=== PATIENT | male | born 1960 | race Caucasian/White ===

== ENCOUNTER 2024-11-01 14:58 | Emergency (ER) | payer OTHER ==
--- OUTSIDE RECORDS SUMMARY | 2024-11-01 15:03 | XMS REPORT | Continuity of Care Document ---
Author Name Unknown Address [address] [place] [address] [facility] thconnect Address [address] [place] [address] Care Team Providers Care Instrumental Musician Name Role Phone Manish Mackey Attending Clinician Unava ilable Junior Attending Clinician Unavail able Manish Mackey Attending Clinician [phone], DOES_NOT Admitting Clinician Unavailable Junior Admitting Clinician Unavail able Manish Mackey Admitting Clinician Unavailable UNDEFINED Admitting Clinician Unavailable Payers Payer Name Policy Type Policy Number Effective Date Expirati on Date Source Problems Condition Name Condition Details Condition Category Status Onset Date Resolution Date Last Treatment Date Treating Clinician Comments Source Tear of right rotator cuff Tear of Right Rotator Cuff Problem Active 6- 00:00: 00 [facility] Full thickness rotator cuff tear Full Thickness Rotator Cuff Tear Problem Active 4-06 00:00: 00 [facility] Complete tear of shoulder joint Complete Tear of Shoulder Joint Problem Active 4-06 00:00: 00 [facility] Fracture of acromial process of scapula Fracture of Acromial Process of Scapula Problem Active 3-30 00:00: 00 [facility] Closed fracture of acromial process of right scapula Closed Fracture of Acromial Process of Right Scapula Problem Active 2021-0 1-27 00:00: 00 [facility] Degenerati ve joint disease of shoulder region Degenerati ve Joint Disease of Shoulder Region Problem Active 12-17 00:00: 00 [facility] Rotator cuff syndrome Rotator Cuff Syndrome Problem Active 06-05 00:00: 00 [facility] Pain of right shoulder joint Pain of Right Shoulder Joint Problem Active 06-05 00:00: 00 [facility] Localized, primary osteoarthr itis Localized, Primary Osteoarthr itis Problem Active 6 00:00: 00 [facility] Allergies, Adverse Reactions, Alerts Allergy Name Allergy Type Status Severity Reaction(s) Onset Date Inactive Date Treating Clinician Comments Source No Known Allergie s DA Active U 07-16 00:00: 00 [facility] No Known Allergie s DA Active U 0 07-16 00:00: 00 [facility] No Known Allergie s DA Active U 1- 00:00: 00 [facility] No Known Allergie s DA Active U 0 114 00:00: 00 [facility] No Known Allergie s DA Active U 1- 00:00: 00 [facility] No Known Allergie s DA Active U 0 1- 00[facility]00: 00 [facility] Social History Smoking Status Start Date Stop Date Source Current Some Day Smoker [facility] Medications Ordered Medication Name Filled Medication Name Start Date Stop Date Current Medication? Ordering Clinician Indication Dosage Frequency Signature (SIG) Comments Components Source Zofran 4 mg tablet 1 TAB PO Q4H PRN NAUSEA Zofran 4 mg tablet 1 TAB PO Q4H PRN NAUSEA 02-17 00:00: 00 No Zofran 4 mg tablet 1 TAB PO Q4H PRN NAUSEA [facility] cyclobenzap rine 10 mg tablet 1 PO Q8H PRN cyclobenzap rine 10 mg tablet 1 PO Q8H PRN 2021-0 3-30 00:00: 00 No cyclobenza eric 10 mg tablet 1 PO Q8H PRN [facility] Zofran 4 mg tablet 1 TAB PO Q4H PRN NAUSEA Zofran 4 mg tablet 1 TAB PO Q4H PRN NAUSEA 2020-0 330 00:00: 00 No Zofran 4 mg tablet 1 TAB PO Q4H PRN NAUSEA [facility] cyclobenzap rine 10 mg tablet 1 PO Q8H PRN cyclobenzap rine 10 mg tablet 1 PO Q8H PRN 1-0 330 00:00: 00 No cyclobenza eric 10 mg tablet 1 PO Q8H PRN [facility] hydrocodone 10 mg-acetamin ophen 325 mg tablet 1 PO Q6H PRN PAIN hydrocodone 10 mg-acetamin ophen 325 mg tablet 1 PO Q6H PRN PAIN 1-0 330 00:00: 00 No hydrocodon e 10 mg-acetami nophen 325 mg tablet 1 PO Q6H PRN PAIN [facility] Zofran 4 mg tablet 1 TAB PO Q4H PRN NAUSEA Zofran 4 mg tablet 1 TAB PO Q4H PRN NAUSEA 2020-0 330 00:00: 00 No Zofran 4 mg tablet 1 TAB PO Q4H PRN NAUSEA [facility] cyclobenzap rine 10 mg tablet 1 PO Q8H PRN cyclobenzap rine 10 mg tablet 1 PO Q8H PRN 2020-0 330 00:00: 00 No cyclobenza eric 10 mg tablet 1 PO Q8H PRN [facility] metformin ER 500 mg tablet,exte nded release 24 hr TAKE 1 TABLET BY MOUTH EVERY MORNING WITH A MEAL AND TAKE 2 TABLETS BY MOUTH EVERY EVENING WITH A MEAL metformin ER 500 mg tablet,exte nded release 24 hr TAKE 1 TABLET BY MOUTH EVERY MORNING WITH A MEAL AND TAKE 2 TABLETS BY MOUTH EVERY EVENING WITH A MEAL No metformin ER 500 mg tablet,ext ended release 24 hr TAKE 1 TABLET BY MOUTH EVERY MORNING WITH A MEAL AND TAKE 2 TABLETS BY MOUTH EVERY EVENING WITH A MEAL [facility] tramadol 50 mg tablet TAKE 1 TO 2 TABLETS BY MOUTH EVERY 8 HOURS NEEDED FOR RIGHT SHOULDER PAIN tramadol 50 mg tablet TAKE 1 TO 2 TABLETS BY MOUTH EVERY 8 HOURS NEEDED FOR RIGHT SHOULDER PAIN No tramadol 50 mg tablet TAKE 1 TO 2 TABLETS BY MOUTH EVERY 8 HOURS NEEDED FOR RIGHT SHOULDER PAIN [facility] baclofen 10 mg tablet baclofen 10 mg tablet No baclofen 10 mg tablet [facility] cyclobenzap rine 5 mg tablet TAKE 1 TABLET BY MOUTH EVERY 6 HOURS NEEDED cyclobenzap rine 5 mg tablet TAKE 1 TABLET BY MOUTH EVERY 6 HOURS NEEDED No cyclobenza eric 5 mg tablet TAKE 1 TABLET BY MOUTH EVERY 6 HOURS NEEDED [facility] hydrocodone 10 mg-acetamin ophen 325 mg tablet TAKE 1 TABLET BY MOUTH EVERY 6 HOURS NEEDED hydrocodone 10 mg-acetamin ophen 325 mg tablet TAKE 1 TABLET BY MOUTH EVERY 6 HOURS NEEDED No hydrocodon e 10 mg-acetami nophen 325 mg tablet TAKE 1 TABLET BY MOUTH EVERY 6 HOURS NEEDED [facility] metformin ER 500 mg tablet,exte nded release 24 hr TAKE 1 TABLET BY MOUTH EVERY MORNING WITH A MEAL AND TAKE 2 TABLETS BY MOUTH EVERY EVENING WITH A MEAL metformin ER 500 mg tablet,exte nded release 24 hr TAKE 1 TABLET BY MOUTH EVERY MORNING WITH A MEAL AND TAKE 2 TABLETS BY MOUTH EVERY EVENING WITH A MEAL No metformin ER 500 mg tablet,ext ended release 24 hr TAKE 1 TABLET BY MOUTH EVERY MORNING WITH A MEAL AND TAKE 2 TABLETS BY MOUTH EVERY EVENING WITH A MEAL [facility] tramadol 50 mg tablet TAKE 1 TO 2 TABLETS BY MOUTH EVERY 8 HOURS NEEDED FOR RIGHT SHOULDER PAIN tramadol 50 mg tablet TAKE 1 TO 2 TABLETS BY MOUTH EVERY 8 HOURS NEEDED FOR RIGHT SHOULDER PAIN No tramadol 50 mg tablet TAKE 1 TO 2 TABLETS BY MOUTH EVERY 8 HOURS NEEDED FOR RIGHT SHOULDER PAIN [facility] baclofen 10 mg tablet baclofen 10 mg tablet No baclofen 10 mg tablet [facility] metformin ER 500 mg tablet,exte nded release 24 hr TAKE 1 TABLET BY MOUTH EVERY MORNING WITH A MEAL AND TAKE 2 TABLETS BY MOUTH EVERY EVENING WITH A MEAL metformin ER 500 mg tablet,exte nded release 24 hr TAKE 1 TABLET BY MOUTH EVERY MORNING WITH A MEAL AND TAKE 2 TABLETS BY MOUTH EVERY EVENING WITH A MEAL No metformin ER 500 mg tablet,ext ended release 24 hr TAKE 1 TABLET BY MOUTH EVERY MORNING WITH A MEAL AND TAKE 2 TABLETS BY MOUTH EVERY EVENING WITH A MEAL [facility] tramadol 50 mg tablet TAKE 1 TO 2 TABLETS BY MOUTH EVERY 8 HOURS NEEDED FOR RIGHT SHOULDER PAIN tramadol 50 mg tablet TAKE 1 TO 2 TABLETS BY MOUTH EVERY 8 HOURS NEEDED FOR RIGHT SHOULDER PAIN No tramadol 50 mg tablet TAKE 1 TO 2 TABLETS BY MOUTH EVERY 8 HOURS NEEDED FOR RIGHT SHOULDER PAIN [facility] cyclobenzap rine 5 mg tablet TAKE 1 TABLET BY MOUTH EVERY 6 HOURS NEEDED cyclobenzap rine 5 mg tablet TAKE 1 TABLET BY MOUTH EVERY 6 HOURS NEEDED No cyclobenza eric 5 mg tablet TAKE 1 TABLET BY MOUTH EVERY 6 HOURS NEEDED [facility] amoxicillin 500 mg capsule Take 4 capsules by oral route as directed. 4 capsule by mouth single dose as directed #4 TABS ONE HOUR PRIOR TO PROCEDURE. AFTER PROCEDURE 1 PO Q6H X3 DOSES amoxicillin 500 mg capsule Take 4 capsules by oral route as directed. 4 capsule by mouth single dose as directed #4 TABS ONE HOUR PRIOR TO PROCEDURE. AFTER PROCEDURE 1 PO Q6H X3 DOSES No 4capsul e(s) amoxicilli n 500 mg capsule Take 4 capsules by oral route as directed. 4 capsule by mouth single dose as directed #4 TABS ONE HOUR PRIOR TO PROCEDURE. AFTER PROCEDURE 1 PO Q6H X3 DOSES [facility] baclofen 10 mg tablet baclofen 10 mg tablet No baclofen 10 mg tablet [facility] cyclobenzap rine 5 mg tablet TAKE 1 TABLET BY MOUTH EVERY 6 HOURS NEEDED cyclobenzap rine 5 mg tablet TAKE 1 TABLET BY MOUTH EVERY 6 HOURS NEEDED No cyclobenza eric 5 mg tablet TAKE 1 TABLET BY MOUTH EVERY 6 HOURS NEEDED [facility] hydrocodone 10 mg-acetamin ophen 325 mg tablet TAKE 1 TABLET BY MOUTH EVERY 6 HOURS NEEDED hydrocodone 10 mg-acetamin ophen 325 mg tablet TAKE 1 TABLET BY MOUTH EVERY 6 HOURS NEEDED No hydrocodon e 10 mg-acetami nophen 325 mg tablet TAKE 1 TABLET BY MOUTH EVERY 6 HOURS NEEDED [facility] Vital Signs Vital Name Observation Time Observation Value Comments S ource Height 2022-12-09 00:00:00 64 [in_i] [facility] BMI (Body Mass Index) 2022-12-09 00:00:00 32.4 kg/m2 [facility] Body Weight 2022-12-09 00:00:00 189 [lb_av] [facility] Height 2022-09-02 00:00:00 64 [in_i] [facility] BMI (Body Mass Index) 2022-09-02 00:00:00 32.4 kg/m2 [facility] Body Weight 2022-09-02 00:00:00 189 [lb_av] [facility] Height 2022-07-08 00:00:00 64 [in_i] [facility] BMI (Body Mass Index) 2022-07-08 00:00:00 32.4 kg/m2 [facility] Body Weight 2022-07-08 00:00:00 189 [lb_av] [facility] Height 2022-06-09 00:00:00 64 [in_i] [facility] BMI (Body Mass Index) 2022-06-09 00:00:00 32.4 kg/m2 [facility] Body Weight 2022-06-09 00:00:00 189 [lb_av] [facility] Height 2022-04-21 00:00:00 64 [in_i] [facility] BMI (Body Mass Index) 2022-04-21 00:00:00 32.4 kg/m2 [facility] Body Weight 2022-04-21 00:00:00 189 [lb_av] [facility] Procedures Procedure Date / Time Performed Performing Clinicia n Source XR, shoulder, 2 or more view 2022-12-09 00:00:00 [facility] XR, shoulder, 2 or more view 2022-09-02 00:00:00 [facility] XR, shoulder, 2 or more view 2022-07-08 00:00:00 [facility] XR, shoulder, 2 or more view 2022-06-09 00:00:00 [facility] Encounters Start Date/Time End Date/Time Encounter Type Admission Type Attending [facility] Care Department Encounter ID Source 2021-02-10 08:08:16 Inpatient Manish MerchantTO HCATO [id number] [facility] 2020-12-04 10:30:00 Inpatient Manish Merchant HCATO RADI [id number] [facility] 2023-06-02 00:00:00 2023-06-02 00:00:00 Outpatient FOG_Brown_Chantelle Carias AO AO [id number] [facility] 2023-06-02 00:00:00 2023-06-02 00:00:00 Outpatient FOG_Narendra_Chantelle Carias AOSM AOSM [id number] [facility] 2023-02-21 00:00:00 2023-02-21 00:00:00 Outpatient FOG_Brown_Chantelle Carias AOSM AOSM [id number] [facility] 2023-02-21 00:00:00 2023-02-21 00:00:00 Outpatient FOG_Gela Carias AOSM AOSM [id number] [facility] 2023-02-21 00:00:00 2023-02-21 00:00:00 Outpatient FOG_Gela Carias AOSM AOSM [id number] [facility] 2022-12-09 00:00:00 2022-12-09 00:00:00 Manish Mackey MD: [address] [place] [address] , Ph. [phone] AOSM [place] [facility] [id number] [facility] 2022-09-02 00:00:00 2022-09-02 00:00:00 Outpatient FOG_Brown_Chantelle sesayett_MD AOSM AO [id number] [facility] 2022-09-02 00:00:00 2022-09-02 00:00:00 Outpatient FOG_Gela Carias AOSM AO [id number] [facility] 2022-09-02 00:00:00 2022-09-02 00:00:00 Outpatient FOG_Gela Carias AOSM AO [id number] [facility] 2022-09-02 00:00:00 2022-09-02 00:00:00 Manish Mackey MD: [address] [place] [phone] , Ph. [phone] [facility] [place] [facility] [id number] [facility] 2022-09-01 00:00:00 2022-09-01 00:00:00 Outpatient FOG_Gela Carias AOSM AO [id number] [facility] 2022-07-08 00:00:00 2022-07-08 00:00:00 Outpatient FOG_Gela Carias AO AO [id number] [facility] 2022-07-08 00:00:00 2022-07-08 00:00:00 Outpatient Manish Mackey AO AO [id number] 2022-07-08 00:00:00 2022-07-08 00:00:00 Manish Mackey MD: [address] [place] [phone] , Ph. [phone] [facility] [place] [facility] [id number] [facility] 2022-06-09 09:48:00 2022-06-09 09:48:00 Outpatient FOG_Gela Carias AOSM AO [id number] [facility] 2022-06-09 00:00:00 2022-06-09 00:00:00 Outpatient Narendra Hammond Bebo AOSM AO [id number] 2022-06-09 00:00:00 2022-06-09 00:00:00 Manish Mackey MD: [address] [place] [phone] , Ph. [phone] [place] [place] [facility] [place] [id number] [facility] 2022-05-27 09:51:00 2022-05-27 09:51:00 Outpatient Cheo Carias AOSM AO [id number] [facility] 2022-05-25 17:05:00 2022-05-26 15:17:00 Inpatient ALEXANDR Manish Mackey HCATO SURG [id number] [facility] [place] [facility] 2022-05-25 17:05:00 2022-05-26 15:17:00 Inpatient ALEXANDR MackeyManish HCATO SURG [id number] [facility] 2022-04-21 10:32:00 2022-04-21 10:32:00 Outpatient Cheo Carias AOSM AO [id number] [facility] 2022-04-21 00:00:00 2022-04-21 00:00:00 Outpatient Narendra Manish Lagunas AOSM AOSM [id number] 2022-04-21 00:00:00 2022-04-21 00:00:00 Manish Mackey MD: [address] [place] [phone] , Ph. [phone] [place] [place] [facility] [place] [id number] [facility] 2021-09-15 00:00:00 2021-09-15 23:00:00 Inpatient ALEXANDR Manish Mackey HCATO LABO [id number] [facility] 2021-09-15 17:17:00 2021-09-15 17:17:00 Outpatient Manish Mackey HCACL LABO [id number] [facility] 2021-09-15 13:45:00 2021-09-15 13:45:00 Outpatient Manish Mackey HCAWU REFE [id number] [facility] 2021-07-16 09:58:00 2021-07-16 09:58:00 Outpatient Manish Mackey HCATO RADI [id number] [facility] 2021-02-10 12:34:20 2021-02-10 12:34:20 Outpatient Manish Mackey HCACL HCACL [id number] [facility] Results Test Description Test Time Test Comments Results Resul t Comments Source - XR SHOULDER 1 V RT 2022-05-26 10:33:00 [facility] 1960 Sex: M Patient Name: EREN HODGE Unit No: [id number] EXAMS: CPT CODE: [id number] XR SHOULDER 1 V RT [id number] IMAGES PROVIDED: Single AP view of the right shoulder FINDINGS: 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 No acute fracture. Visualized lung is clear. IMPRESSION: Right reverse total shoulder arthoplasty without immediate complication. at 1033 Reported and signed by: Maximo Chen M.D. CC: Manish Mackey MD Technologist: ALEX JOE (RT.R) Transcribed D/ (1033) MitchSLJ [facility] NAME: EREN HODGE [address] [facility] PHYS: Manish Leos MD : 1960 AGE: 61 SEX: M [place] [id number] LOC: Y.O17 A PHONE #: [phone] EXAM DATE: 05/25/2022 STATUS: ADM IN FAX #: [phone] RAD #: D/C DT PAGE 1 Signed Report Patient Name: EREN HODGE Unit No: [id number] EXAMS: CPT CODE: [id number] XR SHOULDER 1 V RT [id number] (Continued) Orig Print D/T: S: 05/26/2022 (1036) [facility] NAME: EREN HODGE [address] [facility] PHYS: Manish Leos MD : 1960 AGE: 61 SEX: M [place] [id number] LOC: Y.O17 A PHONE #: [phone] EXAM DATE: 05/25/2022 STATUS: ADM IN FAX #: [phone] RAD #: D/C DT PAGE 2 Signed Report [id number] 05:07:00* Test Item Value Reference Range Interpretation Comme nts GLUBED (test code = GLUBED) 338 mg/dL 60-125 H [id number] 04:53:00* Test Item Value Reference Range Interpretation Comme nts glubed (test code = glubed) 338 mg/dL 60-125 H performing lab: [facility]test code [facility]:41:00* Test Item Value Reference Range Interpretation Comme nts glubed (test code = glubed) 234 mg/dL 60-125 H performing lab: (test code = performing lab:) [facility] 12:46:00* Test Item Value Reference Range Interpretation Comme nts GLUBED (test code = GLUBED) 228 mg/dL 60-125 H [id number] 12:19:00* Test Item Value Reference Range Interpretation Comme nts glubed (test code = glubed) 228 mg/dL 60-125 H performing lab: (test code = performing lab:) [facility] 11:05:00* Test Item Value Reference Range Interpretation Comme nts GLUBED (test code = GLUBED) 308 mg/dL 60-125 H [id number] 10:54:00* Test Item Value Reference Range Interpretation Comme nts glubed (test code = glubed) 308 mg/dL 60-125 H performing lab: (test code = performing lab:) [facility] [id number] 07:38:00* Test Item Value Reference Range Interpretation Comme nts Novel Coronavirus 2019 Inhouse (test code = COVNONPUI) Negative Negative Positive resul ts are indicative of the presence joPNPJ-[id number]-9 RNA, clinical correlation with patient historyand other diagnostic information is necessary to determinepatient infection status. Positive results do not rule outbacterial infection or co-infection with other viruses. Negative results do not preclude SARS-CoV-2 infection andshould not be used as the sole basis for patient managementdecisions. Negative results must be combined with otherclinical observations, patient history, and epidemiologicalinformation . Detection of SARS-CoV-2 RNA may be affected bysample collection methods, storage conditions, and/or stageof infection. Viral RNA mutations, vaccinations, antiviraltherapeutics, antibiotics, chemotherapeutic orimmunosuppressant drugs have not been evaluated for effectson detection. Results are for the identification of SARS-CoV-2 RNA usingreal-time (RT) polymerase chain reaction (PCR) technologyfor the qualitative detection of nucleic acids from fjlWYTP-DrA-8 virus and diagnosis of SARS-CoV-2 virusinfection. It is an Emergency Use Authorization (EUA) testauthorized by the U.S. FDA. Novel Coronavirus 2019 [id number] 07:37:00* Test Item Value Reference Range Interpretation Comme nts Novel Coronavirus 2019 Inhouse (test code = COVNONPUI) Negative Negative Positive resul ts are indicative of the presence [id number]-QfF-5 RNA, clinical correlation with patient historyand other diagnostic information is necessary to determinepatient infection status. Positive results do not rule outbacterial infection or co-infection with other viruses. Negative results do not preclude SARS-CoV-2 infection andshould not be used as the sole basis for patient managementdecisions. Negative results must be combined with otherclinical observations, patient history, and epidemiologicalinformation . Detection of SARS-CoV-2 RNA may be affected bysample collection methods, storage conditions, and/or stageof infection. Viral RNA mutations, vaccinations, antiviraltherapeutics, antibiotics, chemotherapeutic orimmunosuppressant drugs have not been evaluated for effectson detection. Results are for the identification of SARS-CoV-2 RNA usingreal-time (RT) polymerase chain reaction (PCR) technologyfor the qualitative detection of nucleic acids from wogFIOG-TeO-8 virus and diagnosis of SARS-CoV-2 virusinfection. It is an Emergency Use Authorization (EUA) testauthorized by the U.S. FDA. COMPREHENSIVE METABOLIC [id number] 10:36:00* Test Item Value Reference Range Interpretation Comme nts SODIUM (test code = NA) 136 mmol/L 136-145 N POTASSIUM (test code = K) 4.3 mmol/L 3.5-5.1 N CHLORIDE (test code = CL) 99.0 mmol/L 98-107 N CARBON DIOXIDE (test code = CO2) 27.9 mmol/L 21-32 N GLUCOSE (test code = GLU) 269 mg/dL 70-110 H BLOOD UREA NITROGEN (test code = BUN) 14 mg/dL 7-18 N GLOMERULAR FILTRATION RATE (test code = GFR) 92.6 >60 Unit of m easure: mL/min/1.73 [id number] Range:Healthy Adults >90 mL/min/1.73 m2 For Chronic Kidney Disease: Stage II Mild Decrease in GFR 60-90 Stage III Moderate Decrease in GFR 30-59 Stage IV Severe Decrease in GFR 15-29 Stage V Kidney Failure <15 CREATININE (test code = CREAT) 0.84 mg/dL 0.55-1.30 N TOTAL PROTEIN (test code = PROT) 6.7 g/dL 6.4-8.2 N ALBUMIN (test code = ALB) 3.6 g/dL 3.4-5.0 N GLOBULIN (test code = GLOB) 3.1 g/dL 2.2-4.2 N ALBUMIN/GLOBULIN RATIO (test code = A/G) 1.2 0.7-2.0 N CALCIUM (test code = CA) 9.0 mg/dL 8.2-10.1 N BILIRUBIN TOTAL (test code = BILT) 0.80 mg/dL 0.2-1.00 N SGOT/AST (test code = AST) 21.0 U/L 15-37 N SGPT/ALT (test code = ALT) 45.0 U/L 12-78 N Please note new normal range. ALKALINE PHOSPHATASE TOTAL (test code = ALKP) 111 U/L 46-116 N PROTHROMBIN [id number] 10:35:00* Test Item Value Reference Range Interpretation Comme nts PROTHROMBIN TIME PATIENT (test code = PTP) 10.5 secs 9.7-12.5 N Please note new normal range. INTERNATIONAL NORMAL RATIO (test code = INR) 0.95 <2.0 RECOMMENDED THER APEUTIC RANGE FOR ORAL ANTICOAGULANTTREATMENT: CONDITION INRProphylaxis of venous thrombosis in 2.0 - 3.0 high-risk medical or surgical patientsTreatment of venous thrombosis 2.0 - 3.0Prevention of embolism 2.0 - 3.0Prevention of recurrent embolism, or 3.0 - 4.5 patients with mechanical prosthetic intravascular valves IS PATIENT ON ANTICOAGULANTS ? YLIST ANTICOAGULANT/ANTI PLT MEDICATION : AspirinHas Lab been notified if Patient is on Heparin Drip? NOTHROMBOPLASTIN TIME [id number] 10:35:00* Test Item Value Reference Range Interpretation Comme nts PTT ACTIVATED (test code = APTT) 29.1 secs 26.6-34.6 N Please note new normal range. IS PATIENT ON ANTICOAGULANTS ? YLIST ANTICOAGULANT/ANTI PLT MEDICATION : AspirinHas Lab been notified if Patient is on Heparin Drip? NOCBC W/AUTO DIFF 2022-05-17 10:04:00* Test Item Value Reference Range Interpretation Comme nts WHITE BLOOD CELL (test code = WBC) 7.2 K/mm3 5.7-10.5 N RED BLOOD CELL (test code = RBC) 4.61 M/mm3 4.2-5.4 N HEMOGLOBIN (test code = HGB) 14.1 g/dL 12-16 N HEMATOCRIT (test code = HCT) 41.1 % 37-47 N MEAN CELL VOLUME (test code = MCV) 89 fL 80-98 N MEAN CELL HGB (test code = MCH) 30.6 pg 27-34 N MEAN CELL HGB CONCENTRATION (test code = MCHC) 34.3 g/dL 30.8-34.1 H RED CELL DISTRIBUTION WIDTH (test code = RDW) 12.1 % 11-16 N PLT (test code = PLT) 324 K/mm3 130-400 N MEAN PLATELET VOLUME (test c ode = MPV) 9.3 fL 8.9-12.1 N NEUTROPHIL % (test code = NT%) 61.4 % 45-70 N LYMPHOCYTE % (test code = LY%) 21.5 % 20-40 N MONOCYTE % (test code = MO%) 9.5 % 3-10 N EOSINOPHIL % (test code = EO%) 6.4 % 1-5 H BASOPHIL % (test code = BA%) 0.8 % 0.0-1.1 N NEUTROPHIL # (test code = NT#) 4.44 K/mm3 2.00-7.50 N LYMPHOCYTE # (test code = LY#) 1.56 K/mm3 1.50-4.00 N MONOCYTE # (test code = MO#) 0.69 K/mm3 0.2-0.8 N EOSINOPHIL # (test code = EO#) 0.46 K/mm3 0.04-0.4 H BASOPHIL # (test code = BA#) 0.06 K/mm3 0.02-0.10 N MANUAL DIFF REQUIRED (test c ode = MDIFF) NO MANUAL DIFF NUCLEATED RED BLOOD CELL (te st code = NRBC) 0 % 0-0 N Novel Coronavirus 2018 [id number] 07:21:00* Test Item Value Reference Range Interpretation Comme nts Novel Coronavirus 2019 Inhouse (test code = COVNONPUI) Negative Negative Positive resul ts are indicative of the presence wpUVYD-JzM-3 RNA, clinical correlation with patient historyand other diagnostic information is necessary to determinepatient infection status. Positive results do not rule outbacterial infection or co-infection with other viruses. Negative results do not preclude SARS-CoV-2 infection andshould not be used as the sole basis for patient managementdecisions. Negative results must be combined with otherclinical observations, patient history, and epidemiologicalinformation . Detection of SARS-CoV-2 RNA may be affected bysample collection methods, storage conditions, and/or stageof infection. Viral RNA mutations, vaccinations, antiviraltherapeutics, antibiotics, chemotherapeutic orimmunosuppressant drugs have not been evaluated for effectson detection. Results are for the identification of SARS-CoV-2 RNA usingthe Pantoja M2000 System under the FDA Emergency UseAuthorization. The testing is performed by personneltrained in the procedures for the Pantoja M2000 moleculardiagnostic SARS-CoV-2 assay in vitro. SPECIMEN COMMENT: NASALNovel Coronavirus 2019 [id number] 07:20:00* Test Item Value Reference Range Interpretation Comme nts Novel Coronavirus 2019 Inhouse (test code = COVNONPUI) Negative Negative Positive resul ts are indicative of the presence ypBRCZ-QwQ-4 RNA, clinical correlation with patient historyand other diagnostic information is necessary to determinepatient infection status. Positive results do not rule outbacterial infection or co-infection with other viruses. Negative results do not preclude SARS-CoV-2 infection andshould not be used as the sole basis for patient managementdecisions. Negative results must be combined with otherclinical observations, patient history, and epidemiologicalinformation . Detection of SARS-CoV-2 RNA may be affected bysample collection methods, storage conditions, and/or stageof infection. Viral RNA mutations, vaccinations, antiviraltherapeutics, antibiotics, chemotherapeutic orimmunosuppressant drugs have not been evaluated for effectson detection. Results are for the identification of SARS-CoV-2 RNA usingthe Pantoja M2000 System under the FDA Emergency UseAuthorization. The testing is performed by personneltrained in the procedures for the Pantoja M2000 moleculardiagnostic SARS-CoV-2 assay in vitro. SPECIMEN COMMENT: NASALGLYCOSYLATED HEMOGLOBIN (HA1C)2021-09-15 17:35:00* Test Item Value Reference Range Interpretation Comme nts GLYCOSYLATED HEMOGLOBIN (HA1C) (test code = GLYHGB) 10.0 % 4.8-5.9 H Any conditi on that shortens erythocyte survival or decreasesmean erythrocyte age (e.g., recovery from acute blood loss,hemolytic anemai) will falsely lower HGBA1c resultsregardless of the method used. HGBA1c results frompatients with HbSS, HbCC and HbSc must be interpreted withcaution given the pathological processes, including anemia,increased red cell turnover, transfusion requirements, thatadversely impact HGBA1c as a marker of long-term glycemiccontrol. Alternative forms of testing such as fructosamineshould be considered for these patients.Any condition that shortens erythocyte survival or decreasesmean erythrocyte age (e.g., recovery from acute blood loss,hemolytic anemia) will falsely lower HGBA1c resultsregardless of the method used. HGBA1c results from patientswith HbSS, HbCC, and HbSc must be interpreted with cautiongiven the pathological processes, including anemia,increased red cell turnover, transfusion requirements, thatadversely impact HGBA1c as a marker of long-term glycemiccontrol. Alternative forms of testing such as fructosamineshould be considered for these patients.DONE AT: [facility] [address] [place] [address] GLYCOSYLATED HEMOGLOBIN (HA1C)2021-09-15 17:34:00* Test Item Value Reference Range Interpretation Comme nts GLYCOSYLATED HEMOGLOBIN (HA1C) (test code = GLYHGB) 10.0 % 4.8-5.9 H Any conditi on that shortens erythocyte survival or decreasesmean erythrocyte age (e.g., recovery from acute blood loss,hemolytic anemia) will falsely lower HGBA1c resultsregardless of the method used. HGBA1c results from patientswith HbSS, HbCC, and HbSc must be interpreted with cautiongiven the pathological processes, including anemia,increased red cell turnover, transfusion requirements, thatadversely impact HGBA1c as a marker of long-term glycemiccontrol. Alternative forms of testing such as fructosamineshould be considered for these patients. BASIC METABOLIC [id number] 10:16:00* Test Item Value Reference Range Interpretation Comme nts SODIUM (test code = NA) 140 mmol/L 136-145 N POTASSIUM (test code = K) 4.2 mmol/L 3.5-5.1 N CHLORIDE (test code = CL) 102.0 mmol/L 98-107 N CARBON DIOXIDE (test code = CO2) 28.4 mmol/L 21-32 N GLUCOSE (test code = GLU) 220 mg/dL 70-110 H BLOOD UREA NITROGEN (test code = BUN) 14 mg/dL 7-18 N GLOMERULAR FILTRATION RATE (test code = GFR) 86.6 >60 Unit of m easure: mL/min/1.73 l1Pzjroegua Range:Healthy Adults >90 mL/min/1.73 m2 For Chronic Kidney Disease: Stage II Mild Decrease in GFR 60-90 Stage III Moderate Decrease in GFR 30-59 Stage IV Severe Decrease in GFR 15-29 Stage V Kidney Failure <15 CREATININE (test code = CREAT) 0.89 mg/dL 0.55-1.30 N CALCIUM (test code = CA) 8.7 mg/dL 8.2-10.1 N - CT UP EXTREM W/O CONT [id number] 12:14:00 [facility] 1960 Sex: M Patient Name: EREN HODGE Unit No: [id number] EXAMS: CPT CODE: [id number] CT UP EXTREM W/[place] [address] CT OF THE RIGHT SHOULDER WITH SAGITTAL AND CORONAL RECONSTRUCTIONS DIAGNOSIS: Comparison is made with the previous examination of December 04, 2020. On the current examination there is increased superior migration of the humeral head which is articulating with the acromion. Bony fragments are seen posterior superiorly. Marked fatty atrophy of the supraspinatus, infraspinatus and subscapularis muscles is noted. COMMENT: COMPARISON: December 04, 2020 Scans were performed with thin sections and reconstructions were obtained. CT radiation dose optimization is achieved for this examination by the use of a CT protocol in accordance with ACR practice standards and adherence to polysomnography technician's recommendations. Rotator cuff arthropathy is again noted which is more severe than on the previous examination. There is anterior superior subluxation of the humeral head at 1214 Reported and signed by: Gab Ness MD CC: Manish Mackey MD Technologist: Wolf Graham,RT(R) CTDI: DLP: Trnscrpt: 07/16/2021 (1214) tMINIJCL [facility] NAME: EREN HODGE [address] [facility] PHYS: Manish Leal Devendra : 1960 AGE: 60 SEX: M [place] [address] LOC: Y.RAD PHONE #: [phone] EXAM DATE: 07/16/2021 STATUS: REG CLI FAX #: [phone] RAD #: D/C DT PAGE 1 Signed Report Patient Name: EREN HODGE Unit No: [id number] EXAMS: CPT CODE: [id number] CT UP EXTREM W/[place] [id number] (Continued) Orig Print D/T: S: 07/16/2021 (1217) [facility] NAME: EREN HODGE [address] [facility] PHYS: Manish Leos Devendra : 1960 AGE: 60 SEX: M [place] [address] LOC: Y.RAD PHONE #: [phone] EXAM DATE: 07/16/2021 STATUS: REG CLI FAX #: [phone] RAD #: D/C DT PAGE 2 Signed [id number] 12:07:00* Test Item Value Reference Range Interpretation Comme nts GLUBED (test code = GLUBED) 192 mg/dL 60-125 H Novel Coronavirus 2018 [id number] 03:02:00* Test Item Value Reference Range Interpretation Comme nts Novel Coronavirus 2019 Inhouse (test code = COVNONPUI) Negative Negative Positive resul ts are indicative of the presence xfDSZC-QjC-5 RNA, clinical correlation with patient historyand other diagnostic information is necessary to determinepatient infection status. Positive results do not rule outbacterial infection or co-infection with other viruses. Negative results do not preclude SARS-CoV-2 infection andshould not be used as the sole basis for patient managementdecisions. Negative results must be combined with otherclinical observations, patient history, and epidemiologicalinformation . Detection of SARS-CoV-2 RNA may be affected bysample collection methods, storage conditions, and/or stageof infection. Viral RNA mutations, vaccinations, antiviraltherapeutics, antibiotics, chemotherapeutic orimmunosuppressant drugs have not been evaluated for effectson detection. Results are for the identification of SARS-CoV-2 RNA usingthe Pantoja M2000 System under the FDA Emergency UseAuthorization. The testing is performed by personneltrained in the procedures for the Pantoja M2000 moleculardiagnostic SARS-CoV-2 assay in vitro. Novel Coronavirus 2019 [id number] 03:02:00* Test Item Value Reference Range Interpretation Comme nts Novel Coronavirus 2019 Inhouse (test code = COVNONPUI) Negative Negative Positive resul ts are indicative of the presence bjUNHD-IjL-0 RNA, clinical correlation with patient historyand other diagnostic information is necessary to determinepatient infection status. Positive results do not rule outbacterial infection or co-infection with other viruses. Negative results do not preclude SARS-CoV-2 infection andshould not be used as the sole basis for patient managementdecisions. Negative results must be combined with otherclinical observations, patient history, and epidemiologicalinformation . Detection of SARS-CoV-2 RNA may be affected bysample collection methods, storage conditions, and/or stageof infection. Viral RNA mutations, vaccinations, antiviraltherapeutics, antibiotics, chemotherapeutic orimmunosuppressant drugs have not been evaluated for effectson detection. Results are for the identification of SARS-CoV-2 RNA usingthe Pantoja M2000 System under the FDA Emergency UseAuthorization. The testing is performed by personneltrained in the procedures for the Pantoja M2000 moleculardiagnostic SARS-CoV-2 assay in vitro. - XR ARTHROGRAM SHLDR [id number] 12:21:00 [facility] 1960 Sex: M Patient Name: EREN HODGE Unit No: [id number] EXAMS: CPT CODE: [id number] [place] [address] [place] SHOULDER ARTHROGRAM AND LIDOCAINE INJECTION. DIAGNOSIS: Full-thickness rotator cuff tear. COMMENT: COMPARISON: No prior exams available. After informed consent was obtained a single-contrast arthrogram was performed with Isovue-300 . 0.3 minutes of fluoroscopy time was utilized. There was irreg ular filling of the joint and prompt leakage of contrast into the rotator cuff was seen on 4 radiographs obtained in neutral, internal and external rotation and abduction. Subsequently 2 ml of 1% lidocaine was injected into the joint. No immediate complications were encountered. CT OF THE RIGHT SHOULDER WITH SAGITTAL AND CORONAL RECONSTRUCTIONS DIAGNOSIS: There is rotator cuff arthropathy with fatty atrophy of the supraspinatus, infraspinatus and subscapularis muscle bellies. Superior migrationof the humeral head is seen with a fracture of the acromion. Sclerosis, subchondral cyst formation and disc osteophyte formation is seen involving the glenohumeral joint. A posterior intra-articular osseous loose body is noted. COMMENT: COMPARISON: No prior exams available. Scans were performed with thin sections and reconstructions were obtained. CT radiation dose optimization is achieved for this examination by the use of a CT protocol in accordance with ACR practice standards and adherenceto polysomnography technician's recommendations. Degenerative changes are present as described. The rotator cuff is abnormal as noted. at 1221 Reported and signed by: Gab Ness MD CC: Manish Mackey MD Technologist: RT Faye.(R) Transcribed D/ (1221) tSAYRAL [facility] NAME: EREN [facility]ODGE[address] [facility] PHYS: Manish Leos : 1960 AGE: 60 SEX: M [place], [place] [address] LOC: BeniRAD PHONE #: [phone] EXAM DATE: 12/04/2020 STATUS: REG CLI FAX #: [phone] RAD #: D/C DT PAGE 1 Signed Report Patient Name: EREN HODGE Unit No: [id number] EXAMS: CPT CODE: [id number] [place] [id number] (Continued) Orig Print D/T: S: 12/04/2020(1224) [facility] NAME: EREN HODGE [address] [facility] PHYS: Manish Leos : 1960 AGE: 60 SEX: M [place], [place] [address] LOC: Mario.RAD PHONE #:[phone] EXAM DATE: 12/04/2020 STATUS: REG CLI FAX #: [phone] RAD #: D/C DT PAGE 2 Signed Report- CT UP EXTRM W W/O CON [id number] 12:21:00 [facility] : 1960 Sex: M Patient Name: EREN HODGE Unit No: [id number] EXAMS: CPT CODE: [id number] CT UP EXTRM W W/O [place] [address]BKSWS SHOULDER ARTHROGRAM AND LIDOCAINE INJECTION. DIAGNOSIS: Full- thickness rotator cuff tear. COMMENT: COMPARISON: No prior exams available. After informed consent was obtained a single-contrast arthrogram was performed with Isovue-300 . 0.3 minutes of fluoroscopy time was utilized. There was irr egular filling of the joint and prompt leakage of contrast into the rotator cuff was seen on 4 radiographs obtained in neutral, internal and external rotation and abduction. Subsequently 2 ml of 1% lidocaine was injected into the joint. No immediate complications were encountered. CT OF THE RIGHT SHOULDER WITH SAGITTAL AND CORONAL RECONSTRUCTIONS DIAGNOSIS: There is rotator cuff arthropathy with fatty atrophy of the supraspinatus, infraspinatus and subscapularis muscle bellies. Superior migration of the humeral head is seen with a fracture of the acromion. Sclerosis, subchondral cyst formation and disc osteophyte formation is seen involving the glenohumeral joint. A posterior intra-articular osseous loose body is noted. COMMENT: COMPARISON: No prior exams available. Scans were performed with thin sections and reconstructions were obtained. CT radiation dose optimization is achieved forthis examination by the use of a CT protocol in accordance with ACR practice standards and adherence to polysomnography technician's recommendations. Degenerative changes are present as described. The rotator cuffis abnormal as noted. at 1221 Reported and signed by: Gab Ness MD CC: Manish Mackey MD Technologist: RT Fiona(R) CTDI: DLP: Trnscrpt: 12/04/2020 (1221) t.AIDR.JCL [facility] NAME: EREN HODGE [address] [place] [address] PHYS: Manish Leos : 1960 AGE: 60 SEX: M [place] [address] LOC: Y.RAD PHONE #: [phone] EXAM DATE: 12/04/2020 STATUS: REGCLI FAX #: [phone] RAD #: D/C DT PAGE 1 Signed Report Patient Name: EREN HODGE Unit No: [id number] EXAMS: CPT CODE: [id number] CT UP EXTRM W W/[place] [id number] (Continued) Orig Print D/T: S: 12/04/2020 (1224) [facility] NAME: EREN HODGE [address] [facility] PHYS: Manish Leos : 1960 AGE: 60 SEX: M [place] [address] LOC: Y.RAD PHONE #: [phone] EXAM DATE: 12/04/2020 STATUS: REG CLI FAX #: [phone] RAD #: D/C DT PAGE 2Signed Report
[2024-11-01] MEDS ORDERED: IBUPROFEN 400 MG TAB ONE (16:00)
[2024-11-01] MEDS ORDERED: HYDROCODONE/APAP 7.5/325 MG TAB ONE (16:01)
--- NOTE | 2024-11-01 16:26 | RAD REPORT ---
EXAMINATION: XR RIGHT KNEE CLINICAL INDICATION: Male, 64 years old. Pain;Swelling TECHNIQUE: Multiple views of the right knee were obtained. COMPARISON: No prior exam. FINDINGS: Advanced tricompartmental arthritic changes are present. No acute fracture seen. Moderate s uprapatellar joint effusion. Atherosclerosis is noted. 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
--- NOTE | 2024-11-01 17:14 | RAD REPORT ---
EXAMINATION: US RIGHT LOWER EXTREMITY VENOUS DOPPLER CLINICAL INDICATION: Pain;Swelling RIGHT TECHNIQUE: Complete bilateral duplex sonography of the RIGHT lower extremity veins was performed. The examination included compression for vein patency, color Doppler imaging and flow augmentation in response to distal compression of the distal external iliac, common femoral, femoral, popliteal, tibi al, and great and small saphenous veins. COMPARISON: No prior exam. FINDINGS: Duplex sonography testing of the veins of the RIGHT lower extremity was performed. Color flow imaging shows all veins to be compressible with dzar-[id number] color filling. Pulsatile and phasic flow is present within all lower extremity deep and superficial veins examined. 5 cm Ramírez's cyst. IMPRESSION: There is no deep vein or superficial vein thrombosis.
--- NOTE | 2024-11-01 17:40 | ER ---
Nurse's Notes [facility] [place] [place] [facility] Name[facility] Carlos Par[facility] Age: 64 yrs Sex: Male : 1960 Arrival Date: 11/01/2024 Time: 14:58 Bed 2 Private MD: Diagnosis: Pain in right knee Presentation: 11/01 15:28 Chief complaint: Patient states: had injection in knee, had it drained on Tuesday and ko1 its getting worse. Coronavirus screen: At this time, the client does not indicate any symptoms associated with coronavirus-19. Ebola Screen: No symptoms or risks identified at this time. Initial Sepsis Screen: Does the patient meet any 2 criteria? No. Patient's initial sepsis screen is negative. Does the patient have a suspected source of infection? No. Patient's initial sepsis screen is negative. Risk Assessment: Do you want to hurt yourself or someone else? Patient reports no desire to harm self or others. Onset of symptoms is unknown. 15:28 Method Of Arrival: Wheelchair ko1 15:28 Acuity: STEVE 3 ko1 Triage Assessment: 15:31 General: Appears in no apparent distress. Behavior is calm, cooperative, appropriate ko1 for age. Pain: Complains of pain in right knee. Historical: - Allergies: 15:31 No Known Allergies; ko1 - Home Meds: 15:31 None [Active]; ko1 - PMHx: 15:31 Hernia; ko1 - PSHx: 15:31 Repair of inguinal hernia; ko1 - Immunization history:: Adult Immunizations unknown. - Infectious Disease History:: Denies. - Social history:: Smoking status: Patient reports the use of cigarette tobacco products, smokes one pack cigarettes per day. Screenin:35 [facility] ED Fall Risk Assessment (Adult) History of falling in the last 3 months, rs5 including since admission No falls in past 3 months (0 pts) Confusion or Disorientation No (0 pts) Intoxicated or Sedated Yes (3 pts) Impaired Gait Yes (1 pt) Mobility Assist Device Used Yes (1 pt) Altered Elimination No (0 pt) Score/Fall Risk Level 0 - 2 = Low Risk Oriented to surroundings, Maintained a safe environment. Abuse screen: Denies threats or abuse. Nutritional screening: No deficits noted. Tuberculosis screening: No symptoms or risk factors identified. Assessment: 15:33 General: Appears in no apparent distress. uncomfortable, Behavior is calm, cooperative. rs5 Pain: Complains of pain in right knee Pain currently is 8 out of 10 on a pain scale. Quality of pain is described as aching, Is continuous. 15:33 Neuro: Level of Consciousness is awake, alert, obeys commands, Oriented to person, rs5 place, time, situation. Cardiovascular: Patient's skin is warm and dry. Respiratory: Airway is patent Respiratory effort is even, unlabored, Respiratory pattern is regular, symmetrical. GI: Abdomen is round non-distended, Abd is soft and non tender X 4 quads. GI: No signs and/or symptoms were reported involving the gastrointestinal system. : No signs and/or symptoms were reported regarding the genitourinary system. EENT: No signs and/or symptoms were reported regarding the EENT system. Derm: Skin is intact, Skin is pink, warm \T\ dry. Musculoskeletal: Range of motion: limited in right knee. 16:41 Reassessment: Patient and/or family updated on plan of care and expected duration. Pain rs5 level reassessed. Patient is alert, oriented x 3, equal unlabored respirations, skin warm/dry/pink. 17:08 Reassessment: Patient and/or family updated on plan of care and expected duration. Pain rs5 level reassessed. Patient is alert, oriented x 3, equal unlabored respirations, skin warm/dry/pink. 18:01 Reassessment: Patient and/or family updated on plan of care and expected duration. Pain rs5 level reassessed. Patient is alert, oriented x 3, equal unlabored respirations, skin warm/dry/pink. Vital Signs: 15:28 BP 115 / 81; Pulse 110; Resp 19; Temp 97.8; Pulse Ox 98% ; ko1 17:07 BP 113 / 77; Pulse 80; Resp 17; Pulse Ox 99% on R/A; rs5 17:55 BP 117 / 74; Pulse 77; Resp 17; Pulse Ox 99% on R/A; rs5 ED Course: 15:04 Patient arrived in ED. sj2 15:05 Homer Stein PA is PHCP. cp 15:05 Joey Mera MD is Attending Physician. cp 15:31 Triage completed. ko1 15:31 Arm band placed on right wrist. Patient placed in an exam room, Patient notified of ko1 wait time. 15:35 Patient has correct armband on for positive identification. Placed in gown. Bed in low rs5 position. Call light in reach. Side rails up X2. 15:35 No provider procedures requiring assistance completed. rs5 15:36 Familia Davenport, RN is Primary Nurse. rs5 16:14 XRAY Knee RIGHT 3 view In Process Unspecified. EDMS 17:10 US Extremity Venous Unilateral Ltd In Process Unspecified. EDMS 18:00 Patient did not have IV access during this emergency room visit. rs5 Administered Medications: 16:00 Drug: Ibuprofen PO 800 mg PO once Route: PO; rs5 17:01 Follow up: Response: No adverse reaction; Temperature is decreased rs5 16:00 Drug: Hydrocodone-Acetaminophen PO (7.5 mg-325 mg) 1 tabs PO once; RASS on ADMIN: rs5 Combtv4, Very Agttd3, Agttd2, Rstlss1, AlertClm0, Drwsy-1, Lt Sdtn-2, Mod Sdtn-3, Dp Sdtn-4, UnArsble-5 Route: PO; 17:01 Follow up: Response: No adverse reaction; Pain is decreased rs5 Medication: 17:08 VIS not applicable for this client. rs5 Outcome: 17:40 Discharge ordered by MD. cp 18:00 Patient left the ED. rs5 18:00 Discharged to home ambulatory, rs5 18:00 Condition: stable 18:00 Discharge instructions given to patient, family, Instructed on discharge instructions, follow up and referral plans. medication usage, Demonstrated understanding of instructions, follow-up care, medications, Prescriptions given X 2, Signatures: Dispatcher [employer] EDAR Homer Stein PA PA cp Chantel Tai RN RN ko1 Familia Davenport, AMBER RN rs5 Honey Caruso sj2 Corrections: (The following items were deleted from the chart) 15:32 15:31 Home Meds: Ibuprofen 800 to 1200mg a day Oral; ko1 ko1 18:21 18:09 Patient left the ED. rs5 rs5
--- NOTE | 2024-11-01 17:40 | EDPHYS ---
Physician Documentation [facility] [place] Name: Carlos Parada Age: 64 yrs Sex: Male : 1960 Arrival Date: 11/01/2024 Time: 14:58 Bed 2 Private MD: ED Physician Joey Mera HPI: 11/01 15:48 This 64 yrs old Male presents to ER via Wheelchair with complaints of Knee Pain. cp 15:48 The patient presents with pain. cp 15:48 The complaints affect the right knee. Onset: The symptoms/episode began/occurred cp gradually, and became worse today. Associated signs and symptoms: Pertinent positives: calf tenderness, rash, swelling, Pertinent negatives fever, warmth. Treatment prior to arrival includes: no previous treatment. Patient reports injection and drainage of right knee this past Tuesday by orthopedist in [place]. Historical: - Allergies: 15:31 No Known Allergies; ko1 - Home Meds: 15:31 None [Active]; ko1 - PMHx: 15:31 Hernia; ko1 - PSHx: 15:31 Repair of inguinal hernia; ko1 - Immunization history:: Adult Immunizations unknown. - Infectious Disease History:: Denies. - Social history:: Smoking status: Patient reports the use of cigarette tobacco products, smokes one pack cigarettes per day. ROS: 15:50 MS/extremity: Positive for pain, swelling, tenderness, of the right knee, Negative for cp injury or acute deformity, 15:50 Constitutional: Negative for body aches, chills, fever, poor PO intake, cp 15:50 Cardiovascular: Negative for chest pain, palpitations, 15:50 Respiratory: Negative for cough, shortness of breath, wheezing, Exam: 15:55 Constitutional: The patient appears in no acute distress, alert, awake, non-toxic, well cp developed, well nourished, uncomfortable, 15:55 Head/Face: Normocephalic, atraumatic. cp 15:55 Eyes: Periorbital structures: appear normal, Conjunctiva: normal, no exudate, no injection, Sclera: no appreciated abnormality, Lids and lashes: appear normal, bilaterally, 15:55 ENT: External ear(s): are unremarkable, Nose: is normal, Mouth: Lips: moist, Oral mucosa: moist, Posterior pharynx: Airway: no evidence of obstruction, patent, 15:55 Chest/axilla: Inspection: normal, 15:55 Cardiovascular: Rate: tachycardic, 15:55 Respiratory: the patient does not display signs of respiratory distress, Respirations: normal, no use of accessory muscles, no retractions, labored breathing, is not present, Breath sounds: are clear throughout, 15:55 Back: pain, is absent, ROM is normal, 15:55 Musculoskeletal/extremity: Extremities: noted in the right knee: suprapatellar swelling noted, tenderness and pain to palpation,, ROM: limited passive range of motion due to pain, in the right knee, Perfusion: the extremity is normally perfused throughout, the right leg Sensation intact. 15:55 Skin: cellulitis, is not appreciated, Vital Signs: 15:28 BP 115 / 81; Pulse 110; Resp 19; Temp 97.8; Pulse Ox 98% ; ko1 17:07 BP 113 / 77; Pulse 80; Resp 17; Pulse Ox 99% on R/A; rs5 17:55 BP 117 / 74; Pulse 77; Resp 17; Pulse Ox 99% on R/A; rs5 MDM: 15:34 Medical Screening Exam initiated 16:25 Differential diagnosis: dvt, cellulitis, septic joint, sepsis, chronic pain. 17:40 Data reviewed: vital signs, nurses notes, radiologic studies, plain films. 17:40 I considered the following discharge prescriptions or medication management in the emergency department Medications were administered in the Emergency Department. See MAR. Independent interpretation of the following test(s) in the Emergency Department X-Ray: My interpretation is images of right knee negative for fracture. 17:40 Counseling: I had a detailed discussion with the patient and/or guardian regarding the historical points, exam findings, and any diagnostic results supporting the discharge/admit diagnosis, radiology results, to return to the emergency department if symptoms worsen or persist or if there are any questions or concerns that arise at home. 17:40 Response to treatment: the patient's symptoms have markedly improved after treatment, and as a result, I will discharge patient. ED course: VSS. Pain improved. Will discharge to home for continued monitoring. Low suspicion for cellulitis and/or septic joint. Recommend f/u with ortho but return worsening symptoms, fever. 11/01 15:48 Order name: XRAY Knee RIGHT 3 view; Complete Time: 16:32 cp 11/01 16:34 Order name: US Extremity Venous Unilateral Ltd; Complete Time: 17:28 cp 11/01 17:29 Interpretation: Report reviewed. cp 11/01 16:38 Order name: Knee Immobilizer; Complete Time: 18:22 cp Administered Medications: 16:00 Drug: Ibuprofen PO 800 mg PO once Route: PO; rs5 17:01 Follow up: Response: No adverse reaction; Temperature is decreased rs5 16:00 Drug: Hydrocodone-Acetaminophen PO (7.5 mg-325 mg) 1 tabs PO once; RASS on ADMIN: rs5 Combtv4, Very Agttd3, Agttd2, Rstlss1, AlertClm0, Drwsy-1, Lt Sdtn-2, Mod Sdtn-3, Dp Sdtn-4, UnArsble-5 Route: PO; 17:01 Follow up: Response: No adverse reaction; Pain is decreased rs5 Disposition: 11/02 13:45 Chart complete. cp Disposition Summary: 11/01/24 17:40 Discharge Ordered Notes: Location: Home cp Problem: new cp Symptoms: have improved cp Condition: Stable cp Diagnosis - Pain in right knee cp Followup: cp - With: Private Physician - When: 2 - 3 days - Reason: Recheck today's complaints Discharge Instructions: - Discharge Summary Sheet cp - Elastic Bandage and RICE Therapy cp - Joint Pain cp - How to Use a Knee Immobilizer cp Forms: - Medication Reconciliation Form cp - Antibiotic Education cp - Prescription Opioid Use cp - Patient Portal Instructions cp - Leadership Thank You Letter cp Prescriptions: - Celebrex 200 mg Oral capsule - take 1 capsule ORAL route every 12 hours As needed take with food; 20 capsule; cp Refills: 0, Product Selection Permitted - Tramadol 50 mg Oral Tablet - take 1 tablet ORAL route every 8 hours as needed; 12 tablet; Refills: 0, cp Product Selection Permitted Signatures: Dispatcher [employer] Homer Shanks PA PA cp Chantel Tai RN RN ko1 Familia Davenport RN RN rs5 Corrections: (The following items were deleted from the chart) 12 15:32 15:31 Home Meds: Ibuprofen 800 to 1200mg a day Oral; ko1 ko1
[2024-11-01 18:24] VITALS: BP 113/77; TEMP 97.8; O2SAT 99
== END 2024-11-01 18:09 | disposition home or self-care (01) ==
LOC: ER 14:58
DX: M25.561 Pain in right knee (principal); F17.210 Nicotine dependence, cigarettes, uncomplicated; Z98.890 Other specified postprocedural states
CPT/HCPCS: 93971; 99283

== ENCOUNTER 2024-11-03 15:42 | Emergency (ER) | payer OTHER ==
--- OUTSIDE RECORDS SUMMARY | 2024-11-03 15:45 | XMS REPORT | Continuity of Care Document ---
Author Name Unknown Address [address] [place] [address] [facility] thconnect Address [address] [facility] [address] [place] [address] Care Team Providers Care Tool Planer Set Up Operator Name Role Phone Manish Mackey Attending Clinician Unava ilable Junior Attending Clinician Unavail able Manish Mackey Attending Clinician [phone], DOES_NOT Admitting Clinician Unavailable Junior [...] Shoulder Region Problem Active 12-17 00:00: 00 [facility] Closed fracture of acromial process of right scapula Closed Fracture of Acromial Process of Right Scapula Problem Active 12-17 00:00: 00 [facility] Rotator cuff syndrome Rotator Cuff Syndrome Problem Active 06-05 00:00: 00 [facility] Pain of right shoulder joint Pain of Right Shoulder Joint Problem Active 06-05 00:00: 00 [facility] Localized, primary osteoarthr itis Localized, Primary Osteoarthr itis Problem Active 05-11 00:00: 00 [facility] Allergies, Adverse Reactions, Alerts Allergy Name Allergy Type Status Severity Reaction(s) Onset Date Inactive Date Treating Clinician Comments Source No Known Allergie s DA Active U 0 07-16 00:00: 00 [facility] No Known Allergie s DA Active U 0 07-16 00:00: 00 [facility] No Known Allergie s DA Active U 0 1-14 00:00: 00 [facility] No Known Allergie s DA Active U 0 1-14 00:00: 00 [facility] No Known Allergie s DA Active U 0 1-13 00:00: 00 [facility] No Known Allergie s DA Active U 0 1-13 00:00: 00 [facility] Social History Smoking Status Start Date Stop Date Source Current Some Day Smoker [facility] Medications Ordered Medication Name Filled Medication Name Start Date Stop Date Current Medication? Ordering Clinician Indication Dosage Frequency Signature (SIG) Comments Components Source Zofran 4 mg tablet 1 TAB PO Q4H PRN NAUSEA Zofran 4 mg tablet 1 TAB PO Q4H PRN NAUSEA 0 330 00:00: 00 No Zofran 4 mg [...] tablet 1 TAB PO Q4H PRN NAUSEA 1-0 3-30 00:00: 00 No Zofran 4 mg tablet [...] mg tablet 1 PO Q6H PRN PAIN 2020-0 330 00:00: 00 No hydrocodon e 10 [...] (Body Mass Index) 2022-04-21 00:00:00 32.4 kg/m2 [facility] Body Weight 2022-04-21 [...] End Date/Time Encounter Type Admission Type Attending [facility] Facility Care Department Encounter ID Source 2021-02-10 08:08:16 Inpatient Manish Merchant HCATO [id number] [facility] 2020-12-04 10:30:00 Inpatient Manish MerchantTO RADI [id number] [facility] 2023-06-02 00:00:00 2023-06-02 00:00:00 Outpatient FOG_Gela Carias AO AO [id number] [facility] 2023-06-02 00:00:00 2023-06-02 00:00:00 Outpatient FOG_Gela Carias AOSM AO [id number] [facility] 2023-02-21 00:00:00 2023-02-21 00:00:00 Outpatient FOG_Gela Carias AOSM AO [id number] [facility] 2023-02-21 00:00:00 2023-02-21 00:00:00 Outpatient FOG_Gela Carias AOSM AOSM [id number] [facility] 2023-02-21 00:00:00 2023-02-21 00:00:00 Outpatient FOG_Gela Carias AOSM AOSM [id number] [facility] 2022-12-09 00:00:00 2022-12-09 00:00:00 Manish Mackey MD: [address] [place] [address] , Ph. [phone] [facility] [place] [facility] [id number] [facility] 2022-09-02 00:00:00 2022-09-02 00:00:00 Outpatient FOG_Brown_B Jv AOSM AOSM [id number] [facility] 2022-09-02 00:00:00 2022-09-02 00:00:00 Outpatient FOG_Brown_Chantelle Carias AOSM AOSM [id number] [facility] 2022-09-02 00:00:00 2022-09-02 00:00:00 Outpatient FOG_Brown_B Jv AOSM AOSM [id number] [facility] 2022-09-02 00:00:00 2022-09-02 00:00:00 Manish Mackey MD: [address] [place] [phone] , Ph. [phone] AOSM [place] [facility] [address] [place] [id number] [facility] 2022-09-01 00:00:00 2022-09-01 00:00:00 Outpatient FOG_Gela Carias AOSM AO [id number] [facility] 2022-07-08 00:00:00 2022-07-08 00:00:00 Outpatient FOG_Gela Carias AOSM AO [id number] [facility] 2022-07-08 00:00:00 2022-07-08 00:00:00 Outpatient Manish Mackey AOSM AOSM [id number] 2022-07-08 00:00:00 2022-07-08 00:00:00 Manish Mackey MD: [address] [place] [phone] , Ph. [phone] [facility] [place] [facility] [place] [facility] [id number] [facility] 2022-06-09 09:48:00 2022-06-09 09:48:00 Outpatient FOG_Gela Carias AOSM AO [id number] [facility] 2022-06-09 00:00:00 2022-06-09 00:00:00 Outpatient Manish Mackey AOSM AO [id number] 2022-06-09 00:00:00 2022-06-09 00:00:00 Manish Mackey MD: [address] [place] [id number] , Ph. [phone] [facility] [place] [facility] [place] [facility] [place] [id number] [facility] 2022-05-27 09:51:00 2022-05-27 09:51:00 Outpatient Cheo BRYAN AO [id number] [facility] 2022-05-25 17:05:00 2022-05-26 15:17:00 Inpatient ALEXANDR Manish Mackey HCATO SURG [id number] [facility] [place] [facility] 2022-05-25 17:05:00 2022-05-26 15:17:00 Inpatient ALEXANDR MackeyManish HCATO SURG [id number] [facility] 2022-04-21 10:32:00 2022-04-21 10:32:00 Outpatient Cheo BRAYN AO [id number] [facility] 2022-04-21 00:00:00 2022-04-21 00:00:00 Outpatient NarendraManish AOSM AOSM [id number] 2022-04-21 00:00:00 2022-04-21 00:00:00 Manish Mackey MD: [address] [place] [phone] , Ph. [phone] [facility]OS[facility] [place] [facility] [place] [place] [id number] [facility] 2021-09-15 00:00:00 2021-09-15 23:00:00 Inpatient Manish Merchant HCATO LABO [id number] [facility] 2021-09-15 17:17:00 2021-09-15 17:17:00 Outpatient Manish Mackey HCACL LABO [id number] [facility] 2021-09-15 13:45:00 2021-09-15 13:45:00 Outpatient Manish Mackey HCAWU REFE [id number] [facility] 2021-07-16 09:58:00 2021-07-16 09:58:00 Outpatient Manish Merchant HCATO RADI [id number] 2021-02-10 12:34:20 2021-02-10 12:34:20 Outpatient Manish Mackey HCACL HCACL [id number] [facility] Results Test Description Test Time Test Comments Results Resul t Comments Source - XR SHOULDER 1 V RT 2022-05-26 10:33:00 [facility] 1960 Sex: M Patient Name: EREN HODGE Unit No: [id number] EXAMS: CPT CODE: [id number] XR SHOULDER 1 [place] [address]66 IMAGES PROVIDED: Single AP view of the right shoulder FINDINGS: 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 No acute fracture. Visualized lung is clear. IMPRESSION: Right reverse total shoulder arthoplasty without immediate complication. at 1033 Reported and signed by: Maximo Chen M.D. CC: Manish Mackey MD Technologist: ALEX JOE (RT.R) Transcribed D/ (1033) MitchSLJ [facility] NAME: EREN HODGE [address] [facility] PHYS: Manish Leos MD : 1960 AGE: 61 SEX: M [place] [id number] LOC: Y.O17 A PHONE #: [phone] EXAM DATE: 05/25/2022 STATUS: ADM IN FAX #: [phone] RAD #: D/C DT PAGE 1 Signed Report Patient Name: EREN HODGE Unit No: [id number] EXAMS: CPT CODE: [id number] XR SHOULDER 1 V RT [id number] (Continued) Orig Print D/T: S: 05/26/2022 (1036) [facility] NAME: EREN HODGE [address] [facility] PHYS: Manish Leos MD : 1960 AGE: 61 SEX: M [place] [address] LOC: Y.O17 A PHONE #: [phone] EXAM DATE: 05/25/2022 STATUS: ADM IN FAX #: [phone] RAD #: D/C DT PAGE 2 Signed Report [id number] 05:07:00* Test Item Value Reference Range Interpretation Comme nts GLUBED (test code = GLUBED) 338 mg/dL 60-125 H [id number] 04:53:00* Test Item Value Reference Range Interpretation Comme nts glubed (test code = glubed) 338 mg/dL 60-125 H performing lab: (test code = performing lab:) [facility] 17:41:00* Test Item Value Reference Range Interpretation Comme nts glubed (test code = glubed) 234 mg/dL 60-125 H performing lab: (test code = performing lab:) [facility] 12:46:00* Test Item Value Reference Range Interpretation Comme nts GLUBED (test code = GLUBED) 228 mg/dL 60-125 H [id number] 12:19:00* Test Item Value Reference Range Interpretation Comme nts glubed (test code = glubed) 228 mg/dL 60-125 H performing lab: (test code = performing lab:) [facility] 11:05:00* Test Item Value Reference Range Interpretation Comme nts GLUBED (test code = GLUBED) 308 mg/dL 60-125 H [id number] 10:54:00* Test Item Value Reference Range Interpretation Comme nts glubed (test code = glubed) 308 mg/dL 60-125 H performing lab: (test code = performing lab:) [facility] [id number] 07:38:00* Test Item Value Reference Range Interpretation Comme nts Novel Coronavirus 2019 Inhouse (test code = COVNONPUI) Negative Negative Positive resul ts are indicative of the presence msNYRS-WdC-5 RNA, clinical correlation with patient historyand other [...] the qualitative detection of nucleic acids from ebdUDBL-XzD-4 virus and diagnosis of SARS-CoV-2 virusinfection. It is an Emergency Use Authorization (EUA) testauthorized by the U.S. FDA. Novel Coronavirus 2018 [id number] 07:37:00* Test Item Value Reference Range Interpretation Comme nts Novel Coronavirus 2019 Inhouse (test code = COVNONPUI) Negative Negative Positive resul ts are indicative of the presence vpTWQS-XnL-1 RNA, clinical correlation with patient historyand other [...] the qualitative detection of nucleic acids from oreSMME-WaC-8 virus and diagnosis of SARS-CoV-2 virusinfection. It is an Emergency Use Authorization (EUA) testauthorized by the U.S. FDA. COMPREHENSIVE METABOLIC [id number] 10:36:00* Test Item Value Reference Range Interpretation [...] 92.6 >60 Unit of m easure: mL/min/1.73 k2Njqrpucgk Range:Healthy Adults >90 mL/min/1.73 m2 For Chronic [...] = ALKP) 111 U/L 46-116 N PROTHROMBIN [id number] 10:35:00* Test Item Value Reference Range Interpretation [...] Patient is on Heparin Drip? NOTHROMBOPLASTIN TIME [id number] 10:35:00* Test Item Value Reference Range Interpretation [...] 0 % 0-0 N Novel Coronavirus 2018 [id number] 07:21:00* Test Item Value Reference Range Interpretation Comme nts Novel Coronavirus 2019 Inhouse (test code = COVNONPUI) Negative Negative Positive resul ts are indicative of the presence kgSPCR-CnL-1 RNA, clinical correlation with patient historyand other [...] for the identification of SARS-CoV-2 RNA usingthe DerbySoft000 System under the FDA Emergency UseAuthorization. The testing is performed by personneltrained in the procedures for the Pantoja M2000 moleculardiagnostic SARS-CoV-2 assay in vitro. SPECIMEN COMMENT: NASALNovel Coronavirus 2019 [id number] 07:20:00* Test Item Value Reference Range Interpretation Comme nts Novel Coronavirus 2019 Inhouse (test code = COVNONPUI) Negative Negative Positive resul ts are indicative of the presence rdDXUV-ZcE-2 RNA, clinical correlation with patient historyand other [...] the identification of SARS-CoV-2 RNA usingthe Pantoja Securens000 System under the FDA Emergency UseAuthorization. The [...] fructosamineshould be considered for these patients.DONE AT: [facility] [address] [place] [address] GLYCOSYLATED HEMOGLOBIN (HA1C)2021-09-15 17:34:00* Test Item Value [...] be considered for these patients. BASIC METABOLIC [id number] 10:16:00* Test Item Value Reference Range Interpretation [...] 86.6 >60 Unit of m easure: mL/min/1.73 l1Ivzuhawtu Range:Healthy Adults >90 mL/min/1.73 m2 For Chronic Kidney Disease: Stage II Mild Decrease in GFR 60-90 Stage III Moderate Decrease in GFR 30-59 Stage IV Severe Decrease in GFR 15-29 Stage V Kidney Failure <15 CREATININE (test code = CREAT) 0.89 mg/dL 0.55-1.30 N CALCIUM (test code = CA) 8.7 mg/dL 8.2-10.1 N - CT UP EXTREM W/O CONT [id number] 12:14:00 [facility] 1960 Sex: M Patient Name: EREN HODGE Unit No: [id number] EXAMS: CPT CODE: [id number] CT UP EXTREM W/[place] [address] CT OF THE RIGHT SHOULDER WITH SAGITTAL AND CORONAL RECONSTRUCTIONS DIAGNOSIS: Comparison is made with the previous examination of December 04, 2020. On the current examination there is increased superior migration of the humeral head which is articulating with the acromion. Bony fra gments are seen posterior superiorly. Marked fatty atrophy of the supraspinatus, infraspinatus and subscapularis muscles is noted. COMMENT: COMPARISON: December 04, 2020 Scans were performed with thin sections and reconstructions were obtained. CT radiation dose optimization is achieved for this examination by the use of a CT protocol in accordance with ACR practice standards and adherence to salesforce trainer's recommendations. Rotator cuff arthropathy is again noted which is more severe than on the previous examination. There is anterior superior subluxation of the humeral head at 1214 Reported and signed by: Gab mann MD CC: Manish Mackey MD Technologist: Wolf Graham,RT(R) CTDI: DLP: Trnscrpt: 07/16/2021 (1214) tSADIQRGeovannyJCL [facility] NAME: EREN HODGE [address] [facility] PHYS: CARMEN MackeyManish Ramsay : 1960 AGE: 60 SEX: M [place] [address] LOC: Y.RAD PHONE #: [phone] EXAM DATE: 07/16/2021 STATUS: REG CLI FAX #: [phone] RAD #: D/C DT PAGE 1 Signed Report Patient Name: EREN HODGE Unit No: [id number] EXAMS: CPT CODE: [id number] CT UP EXTREM W/[place] [address] (Continued) Orig Print D/T: S: 07/16/2021 (1217) [facility] NAME: EREN HODGE [address] [facility] PHYS: Manish Leos DevendraDOB: 1960 AGE: 60 SEX: M [place] [address] LOC: Y.RAD PHONE #: [phone] EXAM DATE: 07/16/2021 STATUS: REG CLI FAX #: [phone] RAD #: D/C DT PAGE 2 Signed [id number] 12:07:00* Test Item Value Reference Range Interpretation Comme nts GLUBED (test code = GLUBED) 192 mg/dL 60-125 H Novel Coronavirus 2019 [id number] 03:02:00* Test Item Value Reference Range Interpretation Comme nts Novel Coronavirus 2019 Inhouse (test code = COVNONPUI) Negative Negative Positive resul ts are indicative of the presence vbEXOH-HfX-3 RNA, clinical correlation with patient historyand other [...] SARS-CoV-2 assay in vitro. Novel Coronavirus 2019 [id number] 03:02:00* Test Item Value Reference Range Interpretation Comme nts Novel Coronavirus 2019 Inhouse (test code = COVNONPUI) Negative Negative Positive resul ts are indicative of the presence wgTBFU-JzT-3 RNA, clinical correlation with patient historyand other [...] assay in vitro. - XR ARTHROGRAM SHLDR [id number] 12:21:00 [facility] 1960 Sex: M Patient Name: EREN HODGE Unit No: [id number] EXAMS: CPT CODE: [id number] [place] [address] RIGHT SHOULDER ARTHROGRAM AND LIDOCAINE INJECTION. DIAGNOSIS: Full-thickness rotator cuff tear. COMMENT: COMPARISON: No prior exams available. After informed consent was obtained a single-contrast arthrogram was performed with Isovue-300 . 0.3 minutes of fluoroscopy time was utilized. There was irre gular filling of the joint and prompt leakage [...] fracture of the acromion. Sclerosis, subchondral cyst formationand disc osteophyte formation is seen involving the glenohumeral joint. A posterior intra-articularosseous loose body is noted. COMMENT: COMPARISON: No prior exams available. Scans were performed with thin sections and reconstructions were obtained. CT radiation dose optimization is achieved for this examination by the use of a CT protocol in accordance with ACR practice standards and adherenceto salesforce trainer's recommendations. Degenerative changes are present as described. The rotator cuff is abnormal as noted. at 1221 Reported and signed by: Gab Ness MD CC: Manish Mackey MD Technologist: Agata Hobbs RT.(R) Transcribed D/ (1221) t.ALESSANDRO.JCL [facility] NAME: EREN HODGE[address] PHYS: Manish Leos : 1960 AGE: 60 SEX: M [place], [place] [address] LOC: Y.RAD PHONE #: [phone] EXAM DATE: 12/04/2020 STATUS: REG CLI FAX #: [phone] RAD #: D/C DT PAGE 1 Signed Report Patient Name: EREN HODGE Unit No: [id number] EXAMS: CPT CODE: [id number] [address] (Continued) Orig Print D/T: S: 12/04/2020 (1224) [facility] NAME: EREN HODGE [address] [facility] PHYS: Manish Leos : 1960 AGE: 60 SEX: M [place], [place] [address] LOC: Y.RAD PHONE #:[phone] EXAM DATE: 12/04/2020 STATUS: REG CLI FAX #: [phone] RAD #: D/C DT PAGE 2 Signed Report- CT UP EXTRM W W/O CON [id number] 12:21:00 [facility] : 1960 Sex: M Patient Name: EREN HODGE Unit No: [id number] EXAMS: CPT CODE: [id number] CT UP EXTRM W W/O [place] [address]JSIKI SHOULDER ARTHROGRAM AND LIDOCAINE INJECTION. DIAGNOSIS: Full- thickness rotator cuff tear. COMMENT: COMPARISON: No prior exams available. After informed consent was obtained a single-contrast arthrogram was performed with Isovue-300 . 0.3 minutes of fluoroscopy time was utilized. There was ir regular filling of the joint and prompt leakage of contrast into the rotator cuff was seen on 4 radiographs obtained in neutral, internal and external rotation and abduction. Subsequently 2 ml of 1% lidocaine was injected into the joint. No immediate complications were encountered. CT OF THE RIGHT SHOULDER WITH SAGITTAL AND CORONAL RECONSTRUCTIONS DIAGNOSIS: There is rotator cuff arthropathy withfatty atrophy of the supraspinatus, infraspinatus and subscapularis [...] with ACR practice standards and adherence to salesforce trainer's recommendations. Degenerative changes are present as described. The rotator cuff is abnormal as noted. at 1221 Reported and signed by: Gab Ness MD CC: Manish Mackey MD Technologist: RT Fiona(R) CTDI: DLP: Trnscrpt: 12/04/2020 (1221) tMINIJCL [facility] NAME: EREN HODEG [address] [place] [address] PHYS: Manish Leos : 1960 AGE: 60 SEX: M [place] [address] LOC: Y.RAD PHONE #: [phone] EXAM DATE: 12/04/2020 STATUS: REG CLI FAX #: [phone] RAD #: D/C DT PAGE 1 Signed Report Patient Name: EREN HODGE Unit No: [id number] EXAMS: CPT CODE: [id number] CT UP EXTRM W W/[place] [address] (Continued) Orig Print D/T: S: 12/04/2020 (1224) [facility] NAME: EREN HODGE [address] [facility] PHYS: Manish Leos : 1960 AGE: 60 SEX: M [place] [address] LOC: ROYAL PHONE #: [phone] EXAM DATE: 12/04/2020 STATUS: [facility] FAX #: [phone] RAD #: D/C DT PAGE2 Signed Report
--- NOTE | 2024-11-03 18:30 | EDPHYS ---
Physician Documentation [facility] Name: Carlos Parada Age: 64 yrs Sex: Male : 1960 Arrival Date: 11/03/2024 Time: 15:42 Bed DIS4 Private MD: ED Physician Samir Esposito HPI: 11/03 18:25 This 64 yrs old Male presents to ER via Wheelchair with complaints of Knee Pain - kb right, knee swelling right. 18:25 Pt is a 64 year old male who presents for right knee pain and swelling that started one kb week ago. States he had an injection into knee for regeneration on 10/27/24. Came in yesterday and was discharged home. Went back to the [facility] today and they drained 75cc of cloudy liquid. They recommended he come to the ER for treatment. Denies fever. . Historical: - Allergies: 15:53 No Known Allergies; ll1 - PMHx: 15:53 Hernia; ll1 - PSHx: 15:53 Repair of inguinal hernia; ll1 15:54 R shoulder replacment; ll1 - Immunization history:: Adult Immunizations up to date. - Infectious Disease History:: Denies. - Social history:: Smoking status: Patient denies any tobacco usage or history of. ROS: 18:27 Constitutional: As per HPI kb Exam: 18:27 Constitutional: This is a well developed, well nourished patient who is awake, alert, kb and in no acute distress. Head/Face: Normocephalic, atraumatic. ENT: Moist Mucous membranes Cardiovascular: Regular rate Respiratory: Respirations even and unlabored. No increased work of breathing. Talking in full sentences Skin: Warm, dry with normal turgor. Normal color. Neuro: Awake and alert, GCS 15, oriented to person, place, time, and situation. 18:27 Musculoskeletal/extremity: Extremities: grossly normal except: noted in the right knee: decreased ROM, pain, swelling, tenderness, ROM: limited active range of motion, Circulation is intact in all extremities. Sensation intact. Weight bearing: can bear weight with assistance only, Vital Signs: 15:52 BP 134 / 71; Pulse 111; Resp 18; Temp 98.5; Pulse Ox 99% ; Weight 65.77 kg; Height 5 ll1 ft. 4 in. ; Pain 10/10; 17:30 BP 158 / 87; Pulse 100; Resp 16; Pulse Ox 99% on R/A; db 17:55 BP 143 / 92; Pulse 100; Resp 18; Pulse Ox 98% ; db 15:52 Body Mass Index 24.89 (65.77 kg, 162.56 cm) ll1 15:52 Pain Scale: Adult ll1 MDM: 17:28 Medical Screening Exam initiated kb 17:35 Management of patient was discussed with the following: Discussed case with Dr Esposito. He kb will take over care to perform joint aspiration. . 18:28 Differential diagnosis: septic joint, cellulitis. Data reviewed: vital signs, nurses kb notes. 18:29 ED course: Pt elected to leave from room without informing staff. . kb Administered Medications: No medications were administered Disposition Summary: 11/03/24 18:30 Discharge Ordered Notes: Location: Home kb Condition: Stable kb Diagnosis - Pain in right knee kb Followup: kb - With: Emergency Department - When: As needed - Reason: Worsening of condition Followup: kb - With: Private Physician - When: 2 - 3 days - Reason: Recheck today's complaints, Continuance of care, Re-evaluation by your physician Discharge Instructions: - Discharge Summary Sheet kb - Acute Knee Pain, Adult, Vjya-pl-Ppug kb Forms: - Medication Reconciliation Form kb - Antibiotic Education kb - Prescription Opioid Use kb - Patient Portal Instructions kb - Leadership Thank You Letter kb Signatures: Dispatcher [employer] Mary Wood, AERONAUTICS TEACHER-C KELLY-Hemanth Alva RN RN ll1 Olga Perez, RN RN db Corrections: (The following items were deleted from the chart) 18:27 18:25 Pt is a 64 year old male who presents for right knee pain and swelling that kb started . kb
--- NOTE | 2024-11-03 18:30 | ER ---
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 Sent ll1 for further evaluation and treatment. RLE pain /swelling for 1 week now. Coronavirus screen: Client denies travel out of the [place] in the last 14 days. At this time, the client does not indicate any symptoms associated with coronavirus-19. Ebola Screen: Patient denies travel to an Ebola-affected area in the 21 days before illness onset. Initial Sepsis Screen: Does the patient meet any 2 criteria? No. Patient's initial sepsis screen is negative. Does the patient have a suspected source of infection? No. Patient's initial sepsis screen is negative. Risk Assessment: Do you want to hurt yourself or someone else? Patient reports no desire to harm self or others. Onset of symptoms was October 27, 2024. 15:52 Method Of Arrival: Wheelchair ll1 15:52 Acuity: STEVE 3 ll1 Triage Assessment: 15:53 General: Appears uncomfortable, Behavior is calm, cooperative, appropriate for age. ll1 Pain: Complains of pain in R knee Quality of pain is described as aching. Musculoskeletal: Swelling present in R knee Reports pain in right leg. Historical: - Allergies: 15:53 No Known Allergies; ll1 - PMHx: 15:53 Hernia; ll1 - PSHx: 15:53 Repair of inguinal hernia; ll1 15:54 R shoulder replacment; ll1 - Immunization history:: Adult Immunizations up to date. - Infectious Disease History:: Denies. - Social history:: Smoking status: Patient denies any tobacco usage or history of. Screenin:57 [facility] ED Fall Risk Assessment (Adult) History of falling in the last 3 months, db including since admission No falls in past 3 months (0 pts) Confusion or Disorientation No (0 pts) Intoxicated or Sedated No (0 pts) Impaired Gait No (0 pts) Mobility Assist Device Used No (0 pt) Altered Elimination No (0 pt) Score/Fall Risk Level 0 - 2 = Low Risk Oriented to surroundings, Maintained a safe environment. Abuse screen: Denies threats or abuse. Denies injuries from another. Nutritional screening: No deficits noted. Tuberculosis screening: No symptoms or risk factors identified. Assessment: 17:55 Reassessment: Patient appears in no apparent distress at this time. Patient and/or db family updated on plan of care and expected duration. Pain level reassessed. Patient is alert, oriented x 3, equal unlabored respirations, skin warm/dry/pink. RIGHT KNEE SWELLING. General: Appears in no apparent distress. comfortable, Behavior is calm, cooperative. Pain: Complains of pain in right knee. Neuro: Level of Consciousness is awake, alert, obeys commands, Oriented to person, place, time, situation. Respiratory: Airway is patent Respiratory effort is even, unlabored, Respiratory pattern is regular, symmetrical. Derm:. Musculoskeletal: Circulation, motion, and sensation intact. Range of motion: limited in right knee Swelling present in right knee. 18:17 Reassessment: pt assisted to vehicle via wheelchair. iw 18:21 Reassessment: Patient appears in no apparent distress at this time. Patient and/or db family updated on plan of care and expected duration. Pain level reassessed. Patient is alert, oriented x 3, equal unlabored respirations, skin warm/dry/pink. PATIENT OBSERVED LEAVING ROOM USING CRUTCHES. Vital Signs: 15:52 BP 134 / 71; Pulse 111; Resp 18; Temp 98.5; Pulse Ox 99% ; Weight 65.77 kg; Height 5 ll1 ft. 4 in. ; Pain 10/10; 17:30 BP 158 / 87; Pulse 100; Resp 16; Pulse Ox 99% on R/A; db 17:55 BP 143 / 92; Pulse 100; Resp 18; Pulse Ox 98% ; db 15:52 Body Mass Index 24.89 (65.77 kg, 162.56 cm) ll1 15:52 Pain Scale: Adult ll1 ED Course: 15:43 Patient arrived in ED. im 15:53 Triage completed. ll1 15:54 Arm band placed on. ll1 17:24 Patient placed in an exam room, on a stretcher. iw 17:27 Mary Ibar[facility] FNP-C [facility]. kb 17:27 Samir Esposito MD is Attending Physician. kb 17:54 Olga Perez, RN is Primary Nurse. db 17:55 Provided Education on: FOLLOWUP. Pulse ox on. NIBP on. db 18:25 Mary Ibarra FNP-C [facility]. kb 18:25 Samir Esposito MD is Attending Physician. kb 18:34 Patient has correct armband on for positive identification. Bed in low position. Call db light in reach. Side rails up X 1. Warm blanket given. Pillow given. 18:34 No provider procedures requiring assistance completed. Patient did not have IV access db during this emergency room visit. Administered Medications: No medications were administered Medication: 17:57 VIS not applicable for this client. db Outcome: 18:30 Discharge ordered by . kb 18:34 Discharged to home ambulatory, with crutches, db 18:34 Condition: stable 18:34 Discharge instructions given to PATIENT LEFT PRIOR TO RECEIVING DC INSTRUCTIONS Instructed on 18:36 Patient left the ED. db Signatures: Mary Ibarra FNP-C FNP-Opal Ram RN RN Hemanth Farooq RN RN ll1 Olga Perez, RN RN db Alicia Dial
[2024-11-03 19:00] VITALS: TEMP 98.5
[2024-11-03 19:03] VITALS: BP 143/92; O2SAT 98
== END 2024-11-03 18:36 | disposition home or self-care (01) ==
LOC: ER 15:42
DX: M25.561 Pain in right knee (principal)
CPT/HCPCS: 99283

== ENCOUNTER 2024-11-03 22:18 | Emergency (ER) | payer OTHER ==
[2024-11-03] MEDS ORDERED: NA CHLORIDE 0.9% 2,000 ML ONE (23:49)
[2024-11-03] MEDS ORDERED: KETOROLAC 30 MG/ML INJ ONE (23:49)
[2024-11-03] MEDS ORDERED: ONDANSETRON 4 MG/2 ML VIAL ONE (23:49)
[2024-11-03] MEDS ORDERED: MORPHINE 4 MG/ML SYR ONE (23:49)
[2024-11-03 23:56] LABS: Absolute Basophils 0.1 K/uL (0-0.5); Absolute Lymphocytes (CBC) 0.6 K/uL (0.7-4.9); Absolute Monocytes 1.5 K/uL (0.1-1.3); Absolute Neutrophil 12.5 K/uL (1.8-8.0); Basophils % 0.4 % (0-1.3); Hematocrit 36.2 % (39.6-49.0); Hemoglobin 12.1 g/dL (13.6-17.9); MCH 30.1 pg (27.0-35.0); MCHC 33.4 g/dL (32.0-36.0); MPV 8.2 fL (7.6-11.3); Monocytes % 10.3 % (3.3-12.3); Neutrophils % 85.3 % (41.7-73.7); Platelets 355 thou/uL (152-406); RBC Red Blood Cell Count 4.02 M/uL (4.33-5.43); Red Cell Distribution Width 12.3 % (12.1-15.2)
[2024-11-04 00:16] LABS: Albumin 2.7 g/dL (3.4-5.0); Albumin/Globulin Ratio 0.6 (1.1-1.8); Anion Gap 15.3 mEq/L (5.0-15.0); Bilirubin Total 0.8 mg/dL (0.2-1.0); Globulin 4.2 g/dL (2.3-3.5); Potassium 4.3 mEq/L (3.5-5.1); Protein, Total 6.9 g/dL (6.4-8.2)
[2024-11-04] MEDS ORDERED: LIDOCAINE 2% W/EPI 1:200,000 MPF 20 ML VIAL IM ONE (00:56)
[2024-11-04] MEDS ORDERED: VANCOMYCIN 1 GM/VIAL ONE (01:31)
[2024-11-04] MEDS ORDERED: NA CHLORIDE 0.9% 100 ML ONE (01:31)
[2024-11-04] MEDS ORDERED: PIPERACIL/TAZO 3.375 GM VIAL IV ONE (01:31)
--- NOTE | 2024-11-04 01:31 | RAD REPORT ---
EXAM: Extremity Venous Uni Ltd US Right Lower Extremity Venous Duplex Doppler HISTORY: Pain, Swelling COMPARISON: None TECHNIQUE: Grayscale, color Doppler, duplex Doppler, spectral Doppler images and analysis with compre ssion and augmentation of right lower extremity veins. FINDINGS: Right common femoral, greater saphenous, femoral, deep (profunda) femoral, popliteal, posterior tibia l veins unremarkable without evidence of clot. IMPRESSION: No sonographic evidence of right lower extremity DVT. Electronically signed by: Murphy Dumas MD 11/04/2024 12:31 AM [facility] Due to temporary technical issues with the PACS/[employer]merip[employer]ime[employer]Net[employer] reporting system, reports are being sign ed by the in-house radiologist without review as a courtesy to ensure prompt reporting the interpreting rad iologist is fully responsible for the content of the report. Transcribed Date/Time: 11/04/2024 1:30 AM
[2024-11-04] MEDS ORDERED: NA CHLORIDE 0.9% 0 ML ONE (01:32)
--- NOTE | 2024-11-04 01:32 | RAD REPORT ---
EXAM: US Right Lower Extremity Non-Vascular, Limited CLINICAL HISTORY: The patient is 64 years old and is Male; PAIN TECHNIQUE: Real-time ultrasound scan of the right lower extremity with image documentation. COMPARISON: No relevant prior studies available. FINDINGS: SOFT TISSUES: A complex popliteal cyst measuring approximately 3.8 x 5.5 x 1.9 cm is present. Sep tations and minimal debris is noted. No foreign body. IMPRESSION: Findings suggest a complex right popliteal cyst. Electronically signed by: Charleen Murray MD 11/04/2024 12:48 AM [facility] Due to temporary technical issues with the PACS/MedaNext scribe reporting system, reports are being sign ed by the in-house radiologist without review as a courtesy to ensure prompt reporting the interpreting rad iologist is fully responsible for the content of the report. Transcribed Date/Time: 11/04/2024 1:31 AM
[2024-11-04] MEDS ORDERED: NA CHLORIDE 0.9% 250 ML ONE (01:33)
[2024-11-04] MEDS ORDERED: INSULIN GLARGINE 100 UNIT/ML SQ ONE (01:56)
[2024-11-04] MEDS ORDERED: INSULIN REGULAR (HUMAN) 100 UNIT/ML ONE (01:57)
--- NOTE | 2024-11-04 02:22 | EDPHYS ---
Physician Documentation [facility] Name: Carlos Parada Age: 64 yrs Sex: Male : 1960 Arrival Date: 11/03/2024 Time: 22:18 Bed 17 Private MD: ED Physician Homer Dyer HPI: 11/03 23:09 This 64 yrs old Male presents to ER via Ambulatory with complaints of Knee richard Pain. 23:09 The patient presents with decreased range of motion, an injury, pain, swelling, richard tenderness. The complaints affect the lateral aspect of right knee, posterior aspect of right knee, medial aspect of right knee and right knee. Context: resulted from INJECTION, INFECTION , BAKERS CYST. Onset: The symptoms/episode began/occurred 3 week(s) ago. Modifying factors: The symptoms are alleviated by remaining still, the symptoms are aggravated by movement, weight bearing, bending knee. Associated signs and symptoms: Pertinent positives: fever, swelling, warmth. Treatment prior to arrival includes: no previous treatment. Severity of symptoms: At their worst the symptoms were severe, in the emergency department the symptoms are unchanged. The patient has not experienced similar symptoms in the past. Historical: - Allergies: 22:48 No Known Allergies; jb4 - PMHx: 22:48 Hernia; jb4 - PSHx: 22:48 R shoulder replacment; Repair of inguinal hernia; jb4 - Immunization history:: Adult Immunizations not up to date. - Infectious Disease History:: Denies. - Social history:: Smoking status: Patient denies any tobacco usage or history of. ROS: 23:11 Constitutional: Negative for fever, chills, and weight loss, Eyes: Negative for injury, richard pain, redness, and discharge, ENT: Negative for injury, pain, and discharge, Neck: Negative for injury, pain, and swelling, Cardiovascular: Negative for chest pain, palpitations, and edema, Respiratory: Negative for shortness of breath, cough, wheezing, and pleuritic chest pain, Abdomen/GI: Negative for abdominal pain, nausea, vomiting, diarrhea, and constipation, Back: Negative for injury and pain, : Negative for injury, bleeding, discharge, and swelling, Skin: Negative for injury, rash, and discoloration, Neuro: Negative for headache, weakness, numbness, tingling, and seizure, Psych: Negative for depression, anxiety, suicide ideation, homicidal ideation, and hallucinations, Allergy/Immunology: Negative for hives, rash, and allergies, Endocrine: Negative for neck swelling, polydipsia, polyuria, polyphagia, and marked weight changes, Hematologic/Lymphatic: Negative for swollen nodes, abnormal bleeding, and unusual bruising, 23:11 MS/extremity: Positive for decreased range of motion, erythema, pain, swelling, tenderness, warmth, of the lateral aspect of right knee, posterior aspect of right knee, medial aspect of right knee and right knee, Exam: 23:11 Constitutional: This is a well developed, well nourished patient who is awake, alert, richard and in no acute distress. Head/Face: Normocephalic, atraumatic. Eyes: Pupils equal round and reactive to light, extra-ocular motions intact. Lids and lashes normal. Conjunctiva and sclera are non-icteric and not injected. Cornea within normal limits. Periorbital areas with no swelling, redness, or edema. ENT: Nares patent. No nasal discharge, no septal abnormalities noted. Tympanic membranes are normal and external auditory canals are clear. Oropharynx with no redness, swelling, or masses, exudates, or evidence of obstruction, uvula midline. Mucous membranes moist. Neck: Trachea midline, no thyromegaly or masses palpated, and no cervical lymphadenopathy. Supple, full range of motion without nuchal rigidity, or vertebral point tenderness. No Meningismus. Chest/axilla: Normal chest wall appearance and motion. Nontender with no deformity. No lesions are appreciated. Cardiovascular: Regular rate and rhythm with a normal S1 and S2. No gallops, murmurs, or rubs. Normal PMI, no JVD. No pulse deficits. Respiratory: Lungs have equal breath sounds bilaterally, clear to auscultation and percussion. No rales, rhonchi or wheezes noted. No increased work of breathing, no retractions or nasal flaring. Back: No spinal tenderness. No costovertebral tenderness. Full range of motion. Male : Normal genitalia with no discharge or lesions. Neuro: Awake and alert, GCS 15, oriented to person, place, time, and situation. Cranial nerves II-XII grossly intact. Motor strength 5/5 in all extremities. Sensory grossly intact. Cerebellar exam normal. Normal gait. Psych: Awake, alert, with orientation to person, place and time. Behavior, mood, and affect are within normal limits. 23:11 Abdomen/GI: Inspection: abdomen appears normal, 23:11 Musculoskeletal/extremity: Extremities: noted in the lateral aspect of right knee, posterior aspect of right knee, medial aspect of right knee and right knee: decreased ROM, erythema, pain, DVT Exam: negative Homans' sign noted on exam, no appreciated bluish discoloration, pain, swelling, tenderness, erythema, increased warmth, Vital Signs: 22:46 BP 124 / 75; Pulse 109; Resp 16; Temp 97.8(TE); Pulse Ox 98% on R/A; Weight 65.77 kg jb4 (R); Height 5 ft. 4 in. (R); Pain 08/30; 11/04 01:00 BP 133 / 77; Pulse 94; Resp 18 S; Pulse Ox 96% on R/A; br2 02:00 BP 162 / 93; Pulse 111; Resp 18; Pulse Ox 96% on R/A; br2 03:37 BP 131 / 83; Pulse 91; Resp 18 S; Pulse Ox 93% on R/A; br2 04:35 BP 121 / 74; Pulse 89; Resp 18; Pulse Ox 95% ; br2 11/03 22:46 Body Mass Index 24.89 (65.77 kg, 162.56 cm) [facility] 11/03 22:46 Pain Scale: Adult jb4 Procedures: 02:23 Joint Treatment: Aspiration of right knee using 18 gauge needle, Removed cloudy fluid, richard purlent Specimen sent to lab. Dressed with band aid, Neosporin, Patient tolerated well. MDM: 11/03 23:00 Medical Screening Exam initiated richard 23:14 Differential diagnosis: dislocation, closed fracture, contusion, tendonitis. Data [facility] reviewed: vital signs, nurses notes, lab test result(s), radiologic studies, plain films. Consideration of Admission/Observation Escalation of care including admission/observation considered. I considered the following discharge prescriptions or medication management in the emergency department Medications were administered in the Emergency Department. See MAR. Independent interpretation of the following test(s) in the Emergency Department X-Ray: My interpretation is RIGHT KNEE. Test considered but Not performed: EKG: NO EKG. Historians other than the Patient: PT WELL INFORMED. Care significantly affected by the following chronic conditions: HERNIA. Post IV fluid administration reassessment for Sepsis: Client not prescribed the 30 mL/kg IVF due to: Sepsis focused reassessment complete. Counseling: I had a detailed discussion with the patient and/or guardian regarding the historical points, exam findings, and any diagnostic results supporting the discharge/admit diagnosis, lab results, radiology results, the need to transfer to another facility, for higher level of care, [facility] does not immediately have the required specialist. 11/04 02:24 ED course: DW WITH PATIENT HE WANTS TO GO TO NO [place] DR TRANSFER IS richard APPROIATE. 11/03 23:09 Order name: CBC with Diff [facility] 11/03 23:09 Order name: Comprehensive Metabolic Panel; Complete Time: 00:47 [facility] 11/03 23:09 Order name: Blood Culture Adult (2) [facility] 11/03 23:09 Order name: Lactate w/ 2H reflex if indic.; Complete Time: 00:47 [facility] 11/04 02:50 Order name: CBC Smear Scan [facility] 11/04 03:12 Order name: Body Fluid Cell Count [facility] 11/04 03:12 Order name: LD, SYNOVIAL FLUID [facility] 11/04 03:12 Order name: TOTAL PROTEIN, SYNOVIAL FLUID [facility] 11/04 03:12 Order name: GLUCOSE, SYNOVIAL FLUID [facility] 11/04 03:12 Order name: Body Fluid Crystals [facility] 11/04 03:12 Order name: Body Fluid Culture [facility] 11/04 04:45 Order name: Glucose, Ancillary Testing [facility] 11/03 23:09 Order name: Knee Right 3 View XRAY [facility] 11/03 23:09 Order name: US Extremity Venous Unilateral Ltd [facility] 11/03 23:09 Order name: US Extrmty Nonvasular Limited: BAKERS [facility] 11/04 00:50 Order name: Suture Tray at Bedside: knee tap; Complete Time: 01:27 [facility] 11/04 02:39 Order name: Seizure Precautions [facility] Administered Medications: 11/03 23:57 Drug: morphine IVP or IV 4 mg IVP once over 4 mins Route: IVP; Infused Over: 4 mins; br2 Site: right antecubital; 11/04 00:30 Follow up: Response: No adverse reaction br2 11/03 23:57 Drug: Ondansetron IVP 4 mg IVP once; over 2 minutes Route: IVP; Site: right antecubital;br2 11/04 00:30 Follow up: Response: No adverse reaction br2 11/03 23:57 Drug: Ketorolac IVP 15 mg IVP once Route: IVP; Site: right antecubital; br2 11/04 00:30 Follow up: Response: No adverse reaction br2 11/03 23:58 Drug: NS 0.9% IV (30 ml/kg) 30 ml/kg IV at bolus once; Sepsis Protocol; to be given as br2 a bolus over 90 minutes Route: IV; Rate: bolus; Site: right antecubital; 11/04 01:49 Follow up: Response: No adverse reaction; IV Status: Completed infusion; IV Intake: br2 1973ml 02:02 Drug: Insulin Glargine Sub-Q 30 units Sub-Q once {Co-Signature: dd2 (SARAI DUDLEY RN).} br2 Route: Sub-Q; Site: left upper arm; 02:30 Follow up: Response: No adverse reaction br2 02:03 Drug: Insulin Regular Human IVP 10 units IVP once {Co-Signature: dd2 (SARAI DUDLEY RN).} Route: IVP; Site: left antecubital; 03:38 Follow up: Response: No adverse reaction br2 03:38 Follow up: Response: No adverse reaction br2 02:19 Drug: vancoMYCIN IVPB 1 grams IVPB once over 2 hrs Route: IVPB; Infused Over: 2 hrs; br2 Site: left forearm; 03:39 Follow up: Response: No adverse reaction; IV Status: Completed infusion; IV Intake: br2 250ml 02:19 Drug: Piperacillin-Tazobactam IVPB 3.375 grams IVPB once over 60 mins; (mix in NS 100 br2 mL) Route: IVPB; Infused Over: 60 mins; Site: right forearm; 03:00 Follow up: Response: No adverse reaction; IV Status: Completed infusion; IV Intake: br2 100ml 04:30 Drug: Thiamine IV 100 mg IV at bolus once Route: IV; Rate: bolus; Site: right br2 antecubital; 04:42 Follow up: Response: Medication Administered at Departure; IV Status: Completed br2 infusion; IV Intake: 1ml 04:30 Drug: Banana Bag - (Multivitamin IV 1 amp, NS 0.9% IV 1000 ml, Thiamine IV 100 mg, br2 foLIC Acid IVPB 1 mg) IV at 125 ml/hr once Route: IV; Rate: 125 ml/hr; Site: right antecubital; 04:41 Follow up: Response: Medication Administered at Departure; IV Status: Infusion br2 continued upon transfer; IV Intake: 25ml Disposition Summary: 11/04/24 02:21 Transfer Ordered Notes: Transfer Location: [facility] richard Reason: Higher level of care richard Condition: Fair richard Problem: new richard Symptoms: are unchanged richard Accepting Physician: to [facility](11/04/24 04:50) br2 Diagnosis - Effusion, right knee richard - Direct infection of right knee in infectious and parasitic diseases classified richard elsewhere - purlent - Cellulitis of right lower limb - right knee richard - Alcohol use, unspecified richard - Alcohol abuse, uncomplicated richard - Elevated white blood cell count, unspecified richard - Type 2 diabetes mellitus with hyperglycemia - new onset richard - Synovial cyst of popliteal space [Ramírez], right knee richard - Pain in right knee richard - Osteoarthritis of knee, unspecified - severe richard - Hypo-osmolality and hyponatremia richard Forms: - Medication Reconciliation Form richard - SBAR form richard Signatures: Dispatcher [employer] EDMS Homer Dyer MD MD cha Bryson, James, RN RN jb4 Shreya Ascencio RN RN br2 SARAI DUDLEY RN dd2 Corrections: (The following items were deleted from the chart) 11/03 23:09 23:09 Extrmty Nonvasular Limited+US.RAD.BRZ ordered. EDMS EDMS 11/04 01:49 01:49 OSMOLALITY, SERUM+SC.LAB.BRZ ordered. EDMS EDMS 01:49 01:49 URINE SODIUM RANDOM+CHEM UR.LAB.BRZ ordered. EDMS EDMS 01:49 01:49 Osmolality, Urine ordered. EDMS EDMS 02:24 02:21 to [facility] richard richard 02:27 02:24 to [facility] richard richard 04:50 02:27 to [facility] richard br2
--- NOTE | 2024-11-04 02:22 | ER ---
Nurse's Notes [facility] Name: Carlos Parada Age: 64 yrs Sex: Male : 1960 Arrival Date: 11/03/2024 Time: 22:18 Bed 17 Private MD: Diagnosis: Effusion, right knee;Direct infection of right knee in infectious and parasitic diseases classified elsewhere-purlent;Cellulitis of right lower limb-right knee;Alcohol use, unspecified;Alcohol abuse, uncomplicated;Elevated white blood cell count, unspecified;Type 2 diabetes mellitus with hyperglycemia-new onset;Synovial cyst of popliteal space [Ramírez], right knee;Pain in right knee;Osteoarthritis of knee, unspecified-severe;Hypo-osmolality and hyponatremia Presentation: 11/03 22:46 Chief complaint: Patient states: I was here earlier today to get my right knee drained jb4 and had to leave to go take care of my dogs. I am back to get my right knee drained. Coronavirus screen: At this time, the client does not indicate any symptoms associated with coronavirus-19. Ebola Screen: No symptoms or risks identified at this time. Initial Sepsis Screen: Does the patient meet any 2 criteria? HR > 90 bpm. Yes Does the patient have a suspected source of infection? No. Patient's initial sepsis screen is negative. Risk Assessment: Do you want to hurt yourself or someone else? Patient reports no desire to harm self or others. Onset of symptoms was October 27, 2024. Transition of care: patient was not received from another setting of care. 22:46 Method Of Arrival: Ambulatory jb4 22:46 Acuity: STEVE 3 jb4 Triage Assessment: 22:48 General: Appears in no apparent distress. uncomfortable, Behavior is calm, cooperative, jb4 appropriate for age. Pain: Complains of pain in right knee Pain does not radiate. Pain currently is 10 out of 10 on a pain scale. Quality of pain is described as sharp, stabbing, throbbing, Pain began 7 days ago. Neuro: Level of Consciousness is awake, alert, obeys commands, Oriented to person, place, time, situation. Cardiovascular: Patient's skin is warm and dry. Respiratory: Airway is patent Respiratory effort is even, unlabored, Respiratory pattern is regular, symmetrical. Derm: Skin is intact, Skin is pink, warm \T\ dry. Musculoskeletal: Range of motion: limited in right knee Swelling present in right knee. Historical: - Allergies: 22:48 No Known Allergies; jb4 - PMHx: 22:48 Hernia; jb4 - PSHx: 22:48 R shoulder replacment; Repair of inguinal hernia; jb4 - Immunization history:: Adult Immunizations not up to date. - Infectious Disease History:: Denies. - Social history:: Smoking status: Patient denies any tobacco usage or history of. Screenin:00 [facility] ED Fall Risk Assessment (Adult) History of falling in the last 3 months, br2 including since admission No falls in past 3 months (0 pts) Confusion or Disorientation No (0 pts) Intoxicated or Sedated No (0 pts) Impaired Gait Yes (1 pt) Mobility Assist Device Used Yes (1 pt) Altered Elimination No (0 pt) Score/Fall Risk Level 0 - 2 = Low Risk Oriented to surroundings, Maintained a safe environment. Abuse screen: Denies threats or abuse. Denies injuries from another. Nutritional screening: No deficits noted. Tuberculosis screening: No symptoms or risk factors identified. Assessment: 23:00 Reassessment: Patient and/or family updated on plan of care and expected duration. Pain br2 level reassessed. Patient is alert, oriented x 3, equal unlabored respirations, skin warm/dry/pink. General: Appears uncomfortable, Behavior is calm, cooperative. Pain: Complains of pain in right knee. Neuro: Level of Consciousness is awake, alert, obeys commands, Oriented to person, place, time, situation. Cardiovascular: Capillary refill < 3 seconds. Respiratory: Airway is patent Respiratory effort is even, unlabored, Respiratory pattern is regular, symmetrical. GI: No signs and/or symptoms were reported involving the gastrointestinal system. : No signs and/or symptoms were reported regarding the genitourinary system. EENT: No signs and/or symptoms were reported regarding the EENT system. Derm: No signs and/or symptoms reported regarding the dermatologic system. Musculoskeletal: No signs and/or symptoms reported regarding the musculoskeletal system. 11/04 01:30 Reassessment: Patient and/or family updated on plan of care and expected duration. Pain br2 level reassessed. Patient is alert, oriented x 3, equal unlabored respirations, skin warm/dry/pink. Patient states symptoms have improved. 02:20 Reassessment: No changes from previously documented assessment. Patient and/or family br2 updated on plan of care and expected duration. Pain level reassessed. Patient states symptoms have improved. 03:37 Reassessment: No changes from previously documented assessment. Patient and/or family br2 updated on plan of care and expected duration. Pain level reassessed. Patient is alert, oriented x 3, equal unlabored respirations, skin warm/dry/pink. 03:59 Reassessment: CALLED 2B TO GIVE REPORT, WAS ADVISED THAT PT WAS GOING TO 2A. THIS RN dd2 WAS TRANSFERRED AN TOLD UNAWARE THAT PT WAS COMING AND WHO WAS GETTING PT. THIS RN WAS ADVISED TO CALL BACK LATER DUE TO INFLATED BALL MOLDER IN A MEETING. I NOTIFIED AMBER [employer]RES [employer]GE. CALLED TO ATTEMPT REPORT AND WAS TOLD BY AMBER MENDOZAINFLATED BALL MOLDER THAT SHE WAS IN A MEETING AND WE WOULD HAVE TO CALL BACK. 04:34 Reassessment: finger stick 280. br2 Vital Signs: 11/03 22:46 BP 124 / 75; Pulse 109; Resp 16; Temp 97.8(TE); Pulse Ox 98% on R/A; Weight 65.77 kg jb4 (R); Height 5 ft. 4 in. (R); Pain 10/10; 12 01:00 BP 133 / 77; Pulse 94; Resp 18 S; Pulse Ox 96% on R/A; br2 02:00 BP 162 / 93; Pulse 111; Resp 18; Pulse Ox 96% on R/A; br2 03:37 BP 131 / 83; Pulse 91; Resp 18 S; Pulse Ox 93% on R/A; br2 04:35 BP 121 / 74; Pulse 89; Resp 18; Pulse Ox 95% ; br2 11/03 22:46 Body Mass Index 24.89 (65.77 kg, 162.56 cm) jb4 11/03 22:46 Pain Scale: Adult jb4 ED Course: 11/03 22:20 Patient arrived in ED. mr 22:48 Triage completed. jb4 22:48 Arm band placed on left wrist. jb4 23:00 Homer Dyer MD is Attending Physician. [facility] 23:00 Patient has correct armband on for positive identification. Fall risk band placed. br2 Placed in gown. Bed in low position. Call light in reach. Side rails up X 1. Provided Education on: plan of care. 23:13 Shreya Ascencio, RN is Primary Nurse. br2 23:34 Knee Right 3 View XRAY In Process Unspecified. EDMS 23:46 Lactate w/ 2H reflex if indic. Sent. br2 23:46 Blood Culture Adult (2) Sent. br2 23:46 Comprehensive Metabolic Panel Sent. br2 23:46 CBC with Diff Sent. br2 23:58 Inserted saline lock: 20 gauge in right forearm, using aseptic technique. Blood br2 collected. Flushed with 10 mL NS. 12 00:23 US Extremity Venous Unilateral Ltd In Process Unspecified. EDMS 00:23 US Extrmty Nonvasular Limited: BAKERS In Process Unspecified. EDMS 02:10 Inserted saline lock: 20 gauge in left forearm, using aseptic technique. br2 02:19 [facility] called to initiate transfer. hw 02:39 using 18 gauge needle, Lidocaine, fluid removed was cloudy, Specimen sent to lab. br2 hope/cloudy Removed 50 ml's of fluid Set up for procedure. Performed by Homer Dyer MD. 04:47 Patient transferred, IV remains in place. br2 Administered Medications: 11/03 23:57 Drug: morphine IVP or IV 4 mg IVP once over 4 mins Route: IVP; Infused Over: 4 mins; br2 Site: right antecubital; 11/04 00:30 Follow up: Response: No adverse reaction br2 11/03 23:57 Drug: Ondansetron IVP 4 mg IVP once; over 2 minutes Route: IVP; Site: right antecubital;br2 11/04 00:30 Follow up: Response: No adverse reaction br2 11/03 23:57 Drug: Ketorolac IVP 15 mg IVP once Route: IVP; Site: right antecubital; br2 11/04 00:30 Follow up: Response: No adverse reaction br2 11/03 23:58 Drug: NS 0.9% IV (30 ml/kg) 30 ml/kg IV at bolus once; Sepsis Protocol; to be given as br2 a bolus over 90 minutes Route: IV; Rate: bolus; Site: right antecubital; 11/04 01:49 Follow up: Response: No adverse reaction; IV Status: Completed infusion; IV Intake: br2 1973ml 02:02 Drug: Insulin Glargine Sub-Q 30 units Sub-Q once {Co-Signature: dd2 (SARAI DUDLEY RN).} br2 Route: Sub-Q; Site: left upper arm; 02:30 Follow up: Response: No adverse reaction br2 02:03 Drug: Insulin Regular Human IVP 10 units IVP once {Co-Signature: dd2 (SARAI DUDLEY RN).} Route: IVP; Site: left antecubital; 03:38 Follow up: Response: No adverse reaction br2 03:38 Follow up: Response: No adverse reaction br2 02:19 Drug: vancoMYCIN IVPB 1 grams IVPB once over 2 hrs Route: IVPB; Infused Over: 2 hrs; br2 Site: left forearm; 03:39 Follow up: Response: No adverse reaction; IV Status: Completed infusion; IV Intake: br2 250ml 02:19 Drug: Piperacillin-Tazobactam IVPB 3.375 grams IVPB once over 60 mins; (mix in NS 100 br2 mL) Route: IVPB; Infused Over: 60 mins; Site: right forearm; 03:00 Follow up: Response: No adverse reaction; IV Status: Completed infusion; IV Intake: br2 100ml 04:30 Drug: Thiamine IV 100 mg IV at bolus once Route: IV; Rate: bolus; Site: right br2 antecubital; 04:42 Follow up: Response: Medication Administered at Departure; IV Status: Completed br2 infusion; IV Intake: 1ml 04:30 Drug: Banana Bag - (Multivitamin IV 1 amp, NS 0.9% IV 1000 ml, Thiamine IV 100 mg, br2 foLIC Acid IVPB 1 mg) IV at 125 ml/hr once Route: IV; Rate: 125 ml/hr; Site: right antecubital; 04:41 Follow up: Response: Medication Administered at Departure; IV Status: Infusion br2 continued upon transfer; IV Intake: 25ml Medication: 04:50 VIS not applicable for this client. br2 Intake: 01:49 IV: 1973ml; Total: 1973ml. br2 03:00 IV: 100ml; Total: 2073ml. br2 03:39 IV: 250ml; Total: 2323ml. br2 04:41 IV: 25ml; Total: 2348ml. br2 04:42 IV: 1ml; Total: 2349ml. br2 Outcome: 02:21 ER care complete, transfer ordered by MD. ramos 04:48 Transferred by ground EMS to [facility], Transfer form completed. X-rays sent br2 w/ patient. 04:48 Condition: stable 04:48 Discharge instructions given to patient, Instructed on the need for transfer, Demonstrated understanding of instructions, 04:50 Patient left the ED. br2 Signatures: Dispatcher [employer] EDMS Homer Dyer MD MD cha Rivera, Mary, Reg Reg mr NessGuevara, RN RN jb4 Shreya Ascencio, RN RN br2 SARAI DUDLEY, RN RN dd2 Christel Roblero DIANA RN dd2 Corrections: (The following items were deleted from the chart) 04:33 02:39 using 18 gauge needle, Lidocaine, fluid removed was cloudy, Specimen sent to lab. br2 hope/cloudy Set up for procedure. Performed by Homer Dyer MD br2 04:42 04:30 Thiamine IV 100 mg IV at bolus in right antecubital br2 br2 04:42 04:41 Response: No adverse reaction; IV Status: Infusion continued upon transfer; IV br2 Intake: 25ml br2 04:47 1214 23:00 Patient transferred, IV remains in place. br2 br2
[2024-11-04 02:49] LABS: Blood Morphology Comment NOT SEEN (NOT SEEN); Platelet Estimate ADEQ; White Blood Cell Scan OK (OK)
[2024-11-04 04:08] LABS: Appearance VERY TURBID (CLEAR); Body Fluid Source SYNOVIAL; Body Fluid WBC 1620800 /mm^3; Color of Supernate ND (Not Xantho); Color of fluid Orange (COLORLESS); Tube # SINGLE
[2024-11-04 04:09] LABS: Body Fluid Lymphocytes 2 %; Fluid Total Cells Count 100
[2024-11-04] MEDS ORDERED: THIAMINE 200 MG/2 ML INJ ONE (04:19)
[2024-11-04] MEDS ORDERED: MULTIVITAMINS 10 ML VIAL (INJ) IV ONE (04:19)
[2024-11-04] MEDS ORDERED: FOLIC ACID 5 MG/ML VIAL ONE (04:20)
[2024-11-04] MEDS ORDERED: NA CHLORIDE 0.9% 1,000 ML ONE (04:21)
[2024-11-04 05:19] VITALS: TEMP 97.8
[2024-11-04 05:24] VITALS: BP 121/74; O2SAT 95
--- NOTE | 2024-11-04 06:30 | RAD REPORT ---
EXAM: XR Right Knee, 3 Views CLINICAL HISTORY: The patient is 64 years old and is Male; PAIN TECHNIQUE: Three views of the right knee. COMPARISON: No relevant prior studies available. FINDINGS: BONES/JOINTS: Tricompartmental joint space narrowing is present. Spurring of the bilateral tibial plateaus and femoral condyles is present. A joint effusion is noted. No acute fracture. No dislocation. SOFT TISSUES: Soft tissue swelling about the knee is noted. VASCULATURE: Atherosclerosis of the vasculature is present. IMPRESSION: Significant degenerative change of the right knee without acute findings. Electronically signed by: Charleen Murray MD 11/04/2024 12:20 AM [facility] Due to temporary technical issues with the PACS/eSpace reporting system, reports are being andrea d by the in-house radiologist without review as a courtesy to ensure prompt reporting the interpreting radiologist is fully responsible for the content of the report. Transcribed Date/Time: 11/04/2024 6:29 AM
== END 2024-11-04 04:50 | disposition short-term general hospital (02) ==
LOC: ER 22:18
DX: M25.461 Effusion, right knee (principal); M01.X61 Direct infection of right knee in infectious and parasitic diseases classified elsewhere; L03.115 Cellulitis of right lower limb; M17.11 Unilateral primary osteoarthritis, right knee; M71.21 Synovial cyst of popliteal space [Baker], right knee; F10.10 Alcohol abuse, uncomplicated; E11.65 Type 2 diabetes mellitus with hyperglycemia; E87.1 Hypo-osmolality and hyponatremia; D72.829 Elevated white blood cell count, unspecified
CPT/HCPCS: 87040 ×2; 87070; 85025; 36415 ×2; 89050; 83615; 84157; 82945; 82947; 83605; 80053; 89060; 73562; 93971; 76882; 96372; 99285; 20610; J3411; J2543; J2405; J7050; J7030 ×2; J7040

== ENCOUNTER 2024-11-14 13:52 | Emergency (ER) | payer OTHER ==
--- OUTSIDE RECORDS SUMMARY | 2024-11-14 13:56 | XMS REPORT | Continuity of Care Document ---
Author Name Unknown Address [address] [facility] [place] [address] [facility] thconnect Address [address] [facility] 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 Role Phone Pcp, Pcp Primary Care Physician Unavailab le Manish Mackey Attending Clinician Unava ilable Niesha Cazares DO Attending Clinician [phone] Duncan Klein MD Attending Clinician [phone] Jazmine Liu MD Attending Clinician Malena Stratton MD Attending Clinician JAZMINE LIU Attending Cl inician Unavailable Junior Attending Clinician Unavail able Manish Mackey Attending Clinician [phone], DOES_NOT Admitting Clinician Unavailable Duncan Klein MD Admitting Clinician [phone] DUNCAN KLEIN Admitting Clinician Unavailable Junior Admitting Clinician Unavail able Manish Mackey Admitting Clinician Unavailable UNDEFINED Admitting Clinician Unavailable Payers Payer Name Policy Type Policy Number Effective Date Expirati on Date Source MEDICARE PART A Medicare [id number] 2024 00:00:00 Problems Condition Name Condition Details Condition Category Status Onset Date Resolution Date Last Treatment Date Treating Clinician Comments Source Hypokalemi a Hypokalemi a Disease Active 2023-11 2- 00:00: 00 Isi Szymanski Hypomagnes emia Hypomagnes emia Disease Active 2023-11 00:00: 00 Isi Szymanski Acute sepsis (CMS/HCC) Acute sepsis (CMS/HCC) Disease Active 2023-11 00:00: 00 Isi Szymanski Hiccup Hiccup Disease Active 2023-11 00:00: 00 Isi Szymanski Alcohol withdrawal Alcohol withdrawal Disease Active 2023-11 00:00: 00 Isi Szymanski Hyperglyce miranda due to diabetes mellitus (CMS/HCC) Hyperglyce miranda due to diabetes mellitus (CMS/HCC) Disease Active 2023-11 00:00: 00 Isi Szymanski High anion gap metabolic acidosis High anion gap metabolic acidosis Disease Active 2023-11 00:00: 00 Isi Szymanski Septic arthritis Septic arthritis Disease Active 2023-11 215 00:00: 00 Isi Szymanski Tear of right rotator cuff Tear of Right Rotator Cuff Problem Active 6-01 00:00: 00 [facility] cuff syndrome Rotator Cuff Syndrome Problem Active 16 00:00: 00 [facility] Pain of right shoulder joint Pain of Right Shoulder Joint Problem Active 16 00:00: 00 [facility] Localized, primary osteoarthr itis Localized, Primary Osteoarthr itis Problem Active 6 00:00: 00 [facility] Diabetes mellitus [facility] Allergies, Adverse Reactions, Alerts Allergy Name Allergy Type Status Severity Reaction(s) Onset Date Inactive Date Treating Clinician Comments Source No Known Allergie s DA Active U 0 07-16 00:00: 00 [facility] No Known Allergie s DA Active U 0 07-16 00:00: 00 [facility] No Known Allergie s DA Active U 0 1- 00:00: 00 [facility] No Known Allergie s DA Active U 0 1-14 00:00: 00 [facility] No Known Allergie s DA Active U 0 1-13 00:00: 00 [facility] No Known Allergie s DA Active U 0 1-13 00:00: 00 [facility] Social History Social Habit Start Date Stop Date Quantity Comments Source Gender identity 2024-11-05 11:14:38 Identifies as male gender (finding[facility] Sexual orientation [facility] History of Social function 2024-11-05 00:00:00 2024-11-05 00:00:00 [facility] Alcoholic beverage intake 2024-11-05 00:00:00 2024-11-05 00:00:00 .86 /d [facility] Tobacco use and exposure 2024-11-04 00:00:00 2024-11-04 00:00:00 Smokeless tobacco non-user Jeannine Patiño [facility] Smoking Status Start Date Stop Date Source Current Some Day Smoker [facility] Never smoked tobacco Isi Szymanski Medications Ordered Medication Name Filled Medication Name Start Date Stop Date Current Medication? Ordering Clinician Indication Dosage Frequency Signature (SIG) Comments Components Source pantoprazol e (ProtoNix) 40 MG EC tablet pantoprazol e (ProtoNix) 40 MG EC tablet 2023-11 00:00: 00 11-10 23:59 :00 No 40mg QD Take 1 tablet by mouth 1 time each day. Do not crush, chew, or split. Isi Patiño DNA13 folic acid (Folvite) 1 MG tablet folic acid (Folvite) 1 MG tablet 2023-11 00:00: 00 11-11 23:59 :00 No 1mg QD Take 1 tablet by mouth 1 time each day for 1 dose. Isi Patiño DNA13 Blood Glucose Monitoring Suppl (Accu-Chek Kayla Plus) w/Device kit Blood Glucose Monitoring Suppl (Accu-Chek Kayla Plus) w/Device kit 2023-11 00:00: 00 Yes Test daily before all meals/snac ks and once before bedtime. Isi montalvo [place] DNA13 Blood Glucose Calibration (Accu-Chek Kayla) solution Blood Glucose Calibration (Accu-Chek Kayla) solution 2023-11 00:00: 00 Yes Glucose control solution provides an easy way to ensure accurate blood glucose testing. Isi Patiño DNA13 Lancets Misc. (Accu-Chek Softclix Lancet Dev) kit Lancets Misc. (Accu-Chek Softclix Lancet Dev) kit 2023-11 00:00: 00 Yes Test daily before all meals/snac ks and once before bedtime. Isi Patiño DNA13 Alcohol Sheets (Alcoh-Wipe ) sheet Alcohol Sheets (Alcoh-Wipe ) sheet 2023-11 00:00: 00 Yes Test daily before all meals/snac ks and once before bedtime. Isi Patiño DNA13 acetone, urine, test strip acetone, urine, test strip 2023-11 00:00: 00 Yes 1{strip } 1 strip if needed for high blood sugar. Isi Patiño DNA13 insulin lispro (Humalog, Admelog) 100 UNIT/ML injection insulin lispro (Humalog, Admelog) 100 UNIT/ML injection 2023-11 00:00: 00 Yes 4U Inject 4 Units under the skin in the morning and 4 Units at noon and 4 Units in the evening. Inject with meals. Isi Szymanski metoprolol tartrate (Lopressor) 25 MG tablet metoprolol tartrate (Lopressor) 25 MG tablet 2023-11 00:00: 00 11-09 23:59 :00 No 25mg Q.5D Take 1 tablet by mouth in the morning and 1 tablet before bedtime. Isi Szymanski insulin glargine (Lantus SoloStar) 100 UNIT/ML pen insulin glargine (Lantus SoloStar) 100 UNIT/ML pen 2023-11 00:00: 00 11-09 23:59 :00 No 10U Inject 10 Units under the skin at bedtime. Isi Szymanski Urine Glucose-Ket ones Test strip Urine Glucose-Ket ones Test strip 2023-11 00:00: 00 12-09 23:59 :00 No 1{strip } 1 strip if needed (ACHS). Isi Szymanski HYDROcodone -acetaminop hen ([place]) 10-325 MG tablet HYDROcodone -acetaminop hen ([place]) 10-325 MG tablet 2023-11 00:00: 00 11-16 23:59 :00 No [id number] 1{tbl} Q6H Take 1 tablet by mouth every 6 hours if needed for moderate pain (4-6) for up to 7 days. Isi Szymanski metoclopram roger (Reglan) tablet 10 mg metoclopram roger (Reglan) tablet 10 mg 2023-11 14:00: 00 Yes 10mg [id number] 3D 10 mg, Oral, Every 8 hours scheduled, First dose on Tue11/08/24 at 1400, Route changed per IV to PO protocol Isi Szymanski pantoprazol e (ProtoNix) EC tablet 40 mg pantoprazol e (ProtoNix) EC tablet 40 mg 2023-11 09:00: 00 Yes 40mg QD 40 mg, Oral, Daily, First dose on Tue11/08/24 at 0900, Route changed per IV to PO protocol Do not crush, chew, or split. Isi Szymanski multivitami n (Theragran- M) tablet 1 tablet multivitami n (Theragran- M) tablet 1 tablet 2023-11 09:00: 00 11-11 08:59 :00 No 1{tbl} QD 1 tablet, Oral, Daily, First dose (after last modificati on) on Tue11/08/24 at 0900, For 3 doses Isi Szymanski folic acid (Folvite) tablet 1 mg folic acid (Folvite) tablet 1 mg 2023-11 09:00: 00 11-11 08:59 :00 No 1mg QD 1 mg, Oral, Daily, First dose (after last modificati on) on Tue11/08/24 at 0900, For 3 doses Isi Szymanski thiamine (Vitamin B-1) tablet 100 mg thiamine (Vitamin B-1) tablet 100 mg 2023-11 09:00: 00 11-08 10:26 :00 No 100mg QD 100 mg, Oral, Daily, First dose (after last modificati on) on Tue11/08/24 at 0900, For 1 dose Isi Szymanski potassium chloride CR (Klor-Con M20) ER tablet 40 mEq potassium chloride CR (Klor-Con M20) ER tablet 40 mEq 2023-11 07:30: 00 11-08 08:24 :00 No 40meq 40 mEq, Oral, Once, On Tue11/08/24 at 0730, For 1 dose, For patients able to take medication s orally or via feeding tube >/= 14 [place] Citizen, may dissolve each 20 mEq tablet in 4 oz of water. Allow about 2 minutes for the tablets to disintegra te. Stir before giving to prepare slurry and administer . Please exclude patient's with feeding tube less than 14 [place] Citizen (Dobhoff, J-tube, etc) and pediatric and patients Do not crush or chew. Isi Szymanski enoxaparin (Lovenox) syringe 40 mg enoxaparin (Lovenox) syringe 40 mg 2023-11 07:45: 00 Yes 40mg 40 mg, Subcutaneo us, Every 24 hours, First dose on Tue11/07/24 at 0745, Indication s: VTE Prophylaxi s Isi Szymanski magnesium sulfate IVPB 2 g magnesium sulfate IVPB 2 g 2023-11 07:45: 00 11-07 10:22 :00 No 2g 2 g, Intravenou s, at 25 mL/hr, Administer over 2 Hours, Once, On Tue11/07/24 at 0745, For 1 dose Isi Szymanski insulin glargine (Lantus) injection 10 Units insulin glargine (Lantus) injection 10 Units 2023-11 18:00: 00 Yes 10U 10 Units, Subcutaneo us, Every evening, First dose on Tue11/06/24 at 1800 Isi Szymanski metoprolol tartrate (Lopressor) tablet 25 mg metoprolol tartrate (Lopressor) tablet 25 mg 2023-11 13:45: 00 Yes 25mg Q.5D 25 mg, Oral, Every 12 hours scheduled, First dose on Tue11/06/24 at 1345 Isi Szymanski morphine PF injection 4 mg morphine PF injection 4 mg 2023-11 13:43: 36 Yes 4mg Q4H 4 mg, Intravenou s, Every 4 hours PRN, severe pain (7-10), Starting on Tue11/06/24 at 1343 Isi Szymanski ceFAZolin (Ancef) 2 g in sterile water injection ceFAZolin (Ancef) 2 g in sterile water injection 2023-11 12:45: 00 11-13 12:44 :00 No 2g Q8H 2 g, Intravenou s, at 200 mL/hr, Administer over 6 Minutes, Every 8 hours, First dose on Tue11/06/24 at 1245, For 7 days, Reconstitu te each vial with 10 mL sterile water for injection. (20 mL total needed) Prepare dose at bedside immediatel y prior to administra tion. Reconstitu tion: Shake immediatel y and vigorously . Withdraw entire contents of the 1st vial and give IV push slowly over specified time. Withdraw entire contents of the 2nd vial and give IV push slowly over specified time., Suspected Indication (Select all that apply): Bone/Joint Infection Isi Szymanski metoclopram roger (Reglan) injection 10 mg metoclopram roger (Reglan) injection 10 mg 2023-11 12:15: 00 11-08 08:21 :15 No 10mg Q8H 10 mg, Intravenou s, Every 8 hours, First dose on Tue11/06/24 at 1215 Isi Szymanski vancomycin (Vancocin) 1,000 mg in sodium chloride 0.9 % 250 mL IVPB (vial-mate) vancomycin (Vancocin) 1,000 mg in sodium chloride 0.9 % 250 mL IVPB (vial-mate) 2023-11 11:00: 00 11-06 12:38 :46 No 1000mg Q12H 1,000 mg, Intravenou s, at 250 mL/hr, Administer over 60 Minutes, Every 12 hours, First dose on Tue11/06/24 at 1100, For 3 days, Suspected Indication (Select all that apply): Bone/Joint Infection Isi Szymanski sodium chloride 0.9 % 1,000 mL with multiple vitamin (Adult MVI) 10 mL, thiamine 100 mg, folic acid 1 mg infusion sodium chloride 0.9 % 1,000 mL with multiple vitamin (Adult MVI) 10 mL, thiamine 100 mg, folic acid 1 mg infusion 2023-11 17:00: 00 11-07 20:57 :00 No 100mL/h QD 100 mL/hr, Intravenou s, Daily, First dose on Tue11/05/24 at 1700, For 3 doses, Resume maintenanc e fluid after this infusion is complete Isi Szymanski cefepime (Maxipime) 1 g in sterile water injection cefepime (Maxipime) 1 g in sterile water injection 2023-11 16:45: 00 11-06 12:38 :46 No 1g Q6H 1 g, Intravenou s, at 120 mL/hr, Administer over 5 Minutes, Every 6 hours, First dose (after last modificati on) on Tue11/05/24 at 1645, For 17 doses, Frequency modified to q6h per ivp renal dosing protocol approved by [facility] Reconstitu te vial with 10 mL sterile water for injection. Prepare dose at bedside immediatel y prior to administra tion. Reconstitu tion: Shake immediatel y and vigorously . Withdraw entire contents and give IV push slowly over specified time., Suspected Indication (Select all that apply): Bone/Joint Infection Isi Patiño Epic insulin lispro (Humalog, Admelog) injection 7 Units insulin lispro (Humalog, Admelog) injection 7 Units 2023-11 16:00: 00 Yes 7U 7 Units, Subcutaneo us, Once, On Tue11/05/24 at 1600, For 1 dose Iis Patiño Epic insulin lispro (HumaLOG, Admelog) injection 4-16 Units insulin lispro (HumaLOG, Admelog) injection 4-16 Units 2023-11 13:42: 22 Yes 4U [id number] 3D 4-16 Units, Subcutaneo us, 3 times daily PRN, high blood sugar, with meals, Starting on Tue11/05/24 at 1342, For BG < 70, follow hypoglycem ia protocol and notify ordering provider. If patient can eat or drink, give oral carbohydra te as ordered per hypoglycem ia protocol. If patient NPO, give dextrose 50 % IV as ordered per hypoglycem ia protocol. If NPO and no IV access, give glucagon IM as ordered per hypoglycem ia protocol. Check BG every 15 minutes and repeat treatment if continued BG < 80., Correction Insulin Dosing: (DO NOT CHANGE DEFAULT SELECTION/ VALUES): High, BG < 70 instructio ns: Follow Hypoglycem ia Orders, BG 70-149 instructio ns: No Dose Needed, BG 150-199: 4, BG 200-249: 8, BG 250-299: 12, BG >/= 300: 16, BG > 300 instructio ns: Contact Provider Isi montalvo [facility] Epic sodium bicarbonate 150 mEq in sterile water 1,150 mL infusion sodium bicarbonate 150 mEq in sterile water 1,150 mL infusion 2023-11 13:30: 00 11-06 12:16 :28 No 100mL/h 100 mL/hr, Intravenou s, Continuous , Starting on Tue11/05/24 at 1330 Isi Patiño Epic insulin lispro (Humalog, Admelog) injection 10 Units insulin lispro (Humalog, Admelog) injection 10 Units 2023-11 11:45: 00 Yes 10U 10 Units, Subcutaneo us, Once, On Tue11/05/24 at 1145, For 1 dose Isi Patiño Epic insulin regular (HumuLIN R,NovoLIN R) injection 10 Units insulin regular (HumuLIN R,NovoLIN R) injection 10 Units 2023-11 09:11: 32 11-05 09:17 :00 No 10U 10 Units, Subcutaneo us, Once as needed, high blood sugar, Starting on Tue11/05/24 at 0911, For 1 dose, Intraproce dure Isi Szymanski HYDROmorpho ne (Dilaudid) injection 0.5 mg HYDROmorpho ne (Dilaudid) injection 0.5 mg 2023-11 09:04: 54 11-05 09:37 :20 No .5mg 0.5 mg, Intravenou s, Every 10 min PRN, severe pain (7-10), Starting on Tue11/05/24 at 0904, For 4 doses, Recovery (only), Hold for respirator y rate or 8 or less. Isi Patiño Epic insulin regular (HumuLIN R,NovoLIN R) injection 8 Units insulin regular (HumuLIN R,NovoLIN R) injection 8 Units 2023-11 07:15: 00 11-05 07:13 :00 No 8U 8 Units, Intravenou s, Once, On Tue11/05/24 at 0715, For 1 dose, Intraproce dure Isi Szymanski pantoprazol e (ProtoNix) 40 mg in sodium chloride (PF) 0.9 % 10 mL IVP pantoprazol e (ProtoNix) 40 mg in sodium chloride (PF) 0.9 % 10 mL IVP 2023-11 03:15: 00 11-08 08:18 :50 No 40mg QD 40 mg, Intravenou s, Daily, First dose on Tue11/05/24 at 0315, Until Discontinu ed Isi Szymanski simethicone (Mylicon) chewable tablet 80 mg simethicone (Mylicon) chewable tablet 80 mg 2023-11 02:12: 06 Yes 80mg Q6H 80 mg, Oral, Every 6 hours PRN, flatulence , Starting on Tue11/05/24 at 0212 Isi Szymanski vancomycin (Vancocin) 1,000 mg in sodium chloride 0.9 % 250 mL IVPB (vial-mate) vancomycin (Vancocin) 1,000 mg in sodium chloride 0.9 % 250 mL IVPB (vial-mate) 2023-11 15:00: 00 11-05 13:24 :01 No 1000mg Q12H 1,000 mg, Intravenou s, at 250 mL/hr, Administer over 60 Minutes, Every 12 hours, First dose on Tue11/04/24 at 1500, For 5 days, Suspected Indication (Select all that apply): Bone/Joint Infection Isi Szymanski cefepime (Maxipime) 1 g in sterile water injection cefepime (Maxipime) 1 g in sterile water injection 2023-11 10:45: 00 11-05 15:09 :10 No 1g Q8H 1 g, Intravenou s, at 120 mL/hr, Administer over 5 Minutes, Every 8 hours, First dose on Tue11/04/24 at 1045, For 7 days, Reconstitu te vial with 10 mL sterile water for injection. Prepare dose at bedside immediatel y prior to administra tion. Reconstitu tion: Shake immediatel y and vigorously . Withdraw entire contents and give IV push slowly over specified time., Suspected Indication (Select all that apply): Bone/Joint Infection Isi Szymanski sodium chloride (NS) 0.9 % flush 10 mL sodium chloride (NS) 0.9 % flush 10 mL 2023-11 09:00: 00 11-09 10:30 :15 Yes 10mL Q.5D 10 mL, Intravenou s, Every 12 hours scheduled, First dose on Tue11/04/24 at 0900, Administer at least once every 12 hours Isi Szymanski thiamine (Vitamin B-1) tablet 100 mg thiamine (Vitamin B-1) tablet 100 mg 2023-11 09:00: 00 11-05 16:52 :20 No 100mg QD 100 mg, Oral, Daily, First dose on 11/04/24 at 0900, For 5 days Isi Szymanski folic acid (Folvite) tablet 1 mg folic acid (Folvite) tablet 1 mg 2023-11 09:00: 00 11-05 16:52 :20 No 1mg QD 1 mg, Oral, Daily, First dose on 11/04/24 at 0900, For 5 days Isi Szymanski multivitami n (Theragran- M) tablet 1 tablet multivitami n (Theragran- M) tablet 1 tablet 2023-11 09:00: 00 11-05 16:52 :20 No 1{tbl} QD 1 tablet, Oral, Daily, First dose on 11/04/24 at 0900, For 5 doses Isi Szymanski insulin lispro (Humalog, Admelog) injection 2-8 Units insulin lispro (Humalog, Admelog) injection 2-8 Units 2023-11 08:12: 42 11-05 13:42 :37 No 2U Q6H 2-8 Units, Subcutaneo us, Every 6 hours PRN, high blood sugar, Starting on Tue11/04/24 at 0812, For BG < 70, follow hypoglycem ia protocol and notify ordering provider. If patient can eat or drink, give oral carbohydra te as ordered per hypoglycem ia protocol. If patient NPO, give dextrose 50 % IV as ordered per hypoglycem ia protocol. If NPO and no IV access, give glucagon IM as ordered per hypoglycem ia protocol. Check BG every 15 minutes and repeat treatment if continued BG < 80., Correction Insulin Dosing: (DO NOT CHANGE DEFAULT SELECTION/ VALUES): Starting, BG < 70 instructio ns: Follow Hypoglycem ia Orders, BG 70-149 instructio ns: No Dose Needed, BG 150-199: 2, BG 200-249: 4, BG 250-299: 6, BG >/= 300: 8, BG > 300 instructio ns: Contact Provider Isi Szymanski glucagon injection 1 mg glucagon injection 1 mg 2023-11 08:12: 37 Yes 1mg 1 mg, Intramuscu lar, As needed, For BG < 70 mg/dL if no IV access and patient is either Unconsciou s, unable to swallow or npo, Starting on Tue11/04/24 at 0812, For BG < 70 mg/dL if no IV access and patient is either Unconsciou s, unable to swallow or npo and notify MD. Isi Szymanski LORazepam (Ativan) injection 1 mg LORazepam (Ativan) injection 1 mg 2023-11 08:05: 43 Yes 1mg 1 mg, Intravenou s, Every 2 hour PRN, CIWA-Ar Score 8 -14., Starting on Tue11/04/24 at 0805, Contact HO if 6mg Lorazepam given in 6 hours with no improvemen t. Isi Szymanski cloNIDine (Catapres) tablet 0.1 mg cloNIDine (Catapres) tablet 0.1 mg 2023-11 08:05: 32 Yes .1mg Q.25D 0.1 mg, Oral, 4 times daily PRN, SBP > 180 and/or DBP > 120 and/or HR > 110 or BP not resolved after 2 rounds of lorazepam. , Starting on Tue11/04/24 at 0805, Hold for SBP < 90 or HR < 60. Isi Szymanski dextrose 10 % infusion 125 mL dextrose 10 % infusion 125 mL 2023-11 07:14: 02 Yes 125mL 125 mL, Intravenou s, at 999 mL/hr, As needed, Give 125 mL (12.5 gm) IV PRN for BG 51-69 mg/dL, Starting on Tue11/04/24 at 0714, Administer at rate 999 mL/hr Isi Szymanski dextrose 10 % infusion 250 mL dextrose 10 % infusion 250 mL 2023-11 07:14: 02 Yes 250mL 250 mL, Intravenou s, at 999 mL/hr, As needed, Give 250 mL (25 gm) IV PRN for BG </= 50 mg/dL, Starting on Tue11/04/24 at 0714, Administer at rate 999 mL/hr Isi Szymanski guaiFENesin -codeine (Robitussin -AC) 100-10 MG/5ML solution 5 mL guaiFENesin -codeine (Robitussin -AC) 100-10 MG/5ML solution 5 mL 2023-11 07:09: 59 Yes 5mL Q6H 5 mL, Oral, Every 6 hours PRN, cough, Starting on Tue11/04/24 at 0709 Isi Szymanski hydrALAZINE injection 10 mg hydrALAZINE injection 10 mg 2023-11 07:09: 59 Yes 10mg Q6H 10 mg, Intravenou s, Every 6 hours PRN, high blood pressure, SBP>170 mm, Starting on Tue11/04/24 at 0709 Isi Szymanski ondansetron (Zofran) injection 4 mg ondansetron (Zofran) injection 4 mg 2023-11 07:09: 59 Yes 4mg Q8H 4 mg, Intravenou s, Every 8 hours PRN, nausea, vomiting, Starting on Tue11/04/24 at 0709 Isi Szymanski HYDROcodone -acetaminop hen ([place]) 10-325 MG per tablet 1 tablet HYDROcodone -acetaminop hen ([place]) 10-325 MG per tablet 1 tablet 2023-11 07:09: 59 Yes 1{tbl} Q6H 1 tablet, Oral, Every 6 hours PRN, moderate pain (4-6), Starting on Tue11/04/24 at 0709 Isi Szymanski sennosides (Senokot) tablet 8.6 mg sennosides (Senokot) tablet 8.6 mg 2023-11 07:09: 59 Yes 1{tbl} Q.5D 8.6 mg (1 tablet), Oral, 2 times daily PRN, constipati on, Starting on Tue11/04/24 at 0709 Isi Szymanski morphine PF injection 2 mg morphine PF injection 2 mg 2023-11 07:09: 59 11-06 13:44 :05 No 2mg Q4H 2 mg, Intravenou s, Every 4 hours PRN, severe pain (7-10), Starting on Tue11/04/24 at 0709 Isi Szymanski acetaminoph en (Tylenol) tablet 650 mg acetaminoph en (Tylenol) tablet 650 mg 2023-11 07:09: 58 Yes 650mg Q6H 650 mg, Oral, Every 6 hours PRN, mild pain (1-3), fever, Starting on 11/04/24 at 0709 [facility] sodium chloride (NS) 0.9 % flush 10 mL sodium chloride (NS) 0.9 % flush 10 mL 2023-11 2-15 07:08: 33 Yes 10mL 10 mL, Intravenou s, As needed, line care, Line Flush, Starting on 11/04/24 at 0708 [facility] Zofran 4 mg tablet 1 TAB PO Q4H PRN NAUSEA Zofran 4 mg tablet 1 TAB PO Q4H PRN NAUSEA 2020-0 3-30 00:00: 00 No Zofran 4 mg tablet 1 TAB PO Q4H PRN NAUSEA [facility] cyclobenzap rine 10 mg tablet 1 PO Q8H PRN cyclobenzap rine 10 mg tablet 1 PO Q8H PRN 2020-0 3-30 00:00: 00 No cyclobenza eric 10 [...] mg tablet 1 PO Q8H PRN 2020-0 3-30 00:00: 00 No cyclobenza eric 10 mg tablet 1 PO Q8H PRN [facility] hydrocodone 10 mg-acetamin ophen 325 mg tablet 1 PO Q6H PRN PAIN hydrocodone 10 mg-acetamin ophen 325 mg tablet 1 PO Q6H PRN PAIN 2020-0 3-30 00:00: 00 No hydrocodon e 10 mg-acetami nophen 325 mg tablet 1 PO Q6H PRN PAIN [facility] Zofran 4 mg tablet 1 TAB PO Q4H PRN NAUSEA Zofran 4 mg tablet 1 TAB PO Q4H PRN NAUSEA 330 00:00: 00 No Zofran 4 mg tablet 1 TAB PO Q4H PRN NAUSEA [facility] cyclobenzap rine 10 mg tablet 1 PO Q8H PRN cyclobenzap rine 10 mg tablet 1 PO Q8H PRN 330 00:00: 00 No cyclobenza eric 10 [...] Name Observation Time Observation Value Comments S sharlene Heart rate 2024-11-09 12:19:32 67 /min [facility] Epic Respiratory rate 2024-11-09 12:19:32 18 /min [facility] Oxygen saturation in Arterial blood by Pulse oximetry 2024-11-09 12:19:32 92 /min [facility] Body temperature 2024-11-09 12:19:24 37.44 [facility] Systolic blood pressure 2024-11-09 12:19:14 107 mm[Hg] [facility] Diastolic blood pressure 2024-11-09 12:19:14 62 mm[Hg] [facility] Body height 2024-11-04 11:40:00 162.6 cm [facility] Body weight 2024-11-04 11:40:00 68.27 kg [facility] BMI 2024-11-04 11:40:00 25.82 kg/m2 [facility] Heart rate 2024-11-09 12:19:32 67 /min [facility] [place] Epic Respiratory rate 2024-11-09 12:19:32 18 /min [facility] Oxygen saturation in Arterial blood by Pulse oximetry 2024-11-09 12:19:32 92 /min [facility] Body temperature 2024-11-09 12:19:24 37.44 [facility] Systolic blood pressure 2024-11-09 12:19:14 107 mm[Hg] [facility] Diastolic blood pressure 2024-11-09 12:19:14 62 mm[Hg] [facility] Body height 2024-11-04 11:40:00 162.6 cm Rafael [facility] Body weight 2024-11-04 11:40:00 68.27 kg [facility] BMI 2024-11-04 11:40:00 25.82 kg/m2 [facility] Height 2022-12-09 00:00:00 64 [in_i] Azale a [...] Procedures Procedure Date / Time Performed Performing Clinician Source POC GLUCOSE UNSOLICITED RESULTS 2024-11-09 12:17:00 [facility] BASIC METABOLIC PANEL 2024-11-09 10:36:00 [facility]azmine [facility] MAGNESIUM LEVEL 2024-11-09 10:36:00 Jazmine Liu Abdenedinaabby Osman [facility] POC GLUCOSE UNSOLICITED RESULTS 2024-11-09 06:44:00 ChayitoMalena [facility] POC GLUCOSE UNSOLICITED RESULTS 2024-11-08 15:56:00 ChayitoMalenalamonte [facility] C-REACTIVE PROTEIN 2024-11-08 14:39:00 Frankie Ordoñez [facility] SEDIMENTATION RATE 2024-11-08 14:39:00 Frankie Ordoñez [facility] POC GLUCOSE UNSOLICITED RESULTS 2024-11-08 12:10:00 ChayitoMalena [facility] POC GLUCOSE UNSOLICITED RESULTS 2024-11-08 11:41:00 Chayito Malena Grady [facility] POC GLUCOSE UNSOLICITED RESULTS 2024-11-08 06:41:00 [facility] 2024-11-08 06:04:00 [facility] 2024-11-08 06:04:00 Corby [facility] BASIC METABOLIC PANEL 2024-11-08 06:04:00 Tiffany [facility]uddleston [facility] COMPLETE BLOOD COUNT W/DIFF AND PLATELET 2024-11-08 06:04:00 Chayito Malena Grady [facility] POC GLUCOSE UNSOLICITED RESULTS 2024-11-07 17:14:00 [facility]ito [facility]SE UNSOLICITED RESULTS 2024-11-07 11:50:00 [facility]ito [facility] GLU[facility]SE UNSOLICITED RESULTS 2024-11-07 06:42:00 [facility]ito [facility] 2024-11-07 05:22:00 [facility]ito [facility] 2024-11-07 05:22:00 Jannie sweeney [facility] COMPREHENSIVE METABOLIC PANEL 2024-11-07 05:22:00 Chayito, Malena [facility] MAGNESIUM LEVEL 2024-11-07 05:22:00 Chayito, [facility]OS[facility] 2024-11-07 05:22:00 Chayito, Sa montero [facility] C-REACTIVE PROTEIN 2024-11-07 05:22:00 Chayito, [facility] COMPLETE BLOOD COUNT W/DIFF AND PLATELET 2024-11-07 05:22:00 Chayito, [facility] POC GLUCOSE UNSOLICITED RESULTS 2024-11-06 16:52:00 Chayito, [facility] POC GLUCOSE UNSOLICITED RESULTS 2024-11-06 12:33:00 Chayito, [facility] POC GLUCOSE UNSOLICITED RESULTS 2024-11-06 11:55:00 Chayito [facility] VANCOMYCIN LEVEL AUC 2024-11-06 07:48:00 Duncan Klein [facility] COMPLETE BLOOD COUNT 2024-11-06 07:48:00 Jazmine Alicia [facility] AUTOMATED DIFFERENTIAL 2024-11-06 07:48:00 Jazmine Plasenciaed [facility] BASIC METABOLIC PANEL 2024-11-06 07:48:00 Jazmine Garciaed [facility] MAGNESIUM LEVEL 2024-11-06 07:48:00 Jazmine Liu Elsayed [facility] PHOSPHORUS LEVEL 2024-11-06 07:48:00 Jazmine Liu [facility] COMPLETE BLOOD COUNT W/DIFF AND PLATELET 2024-11-06 07:48:00 Jazmine Liued [facility] POC GLUCOSE UNSOLICITED RESULTS 2024-11-06 06:35:00 Jazmine Liu Elsayed [facility] POC GLUCOSE UNSOLICITED RESULTS 2024-11-05 23:39:00 Jazmine Liu Dawson [facility] BASIC METABOLIC PANEL 2024-11-05 19:57:00 Jazmine Garcia Dawson [facility] POC GLUCOSE UNSOLICITED RESULTS 2024-11-05 17:32:00 Jazmine Liu Dawson [facility] POC GLUCOSE UNSOLICITED RESULTS 2024-11-05 15:22:00 Jazmine Liu Dawson [facility] LACTIC ACID WITH 2 HOUR REFLEX 2024-11-05 13:47:00 Jazmine Liu Elsayed [facility] BETA HYDROXYBUTYRATE QUANTITATIVE 2024-11-05 13:47:00 Jazmine Liu Dawson [facility] POC GLUCOSE UNSOLICITED RESULTS 2024-11-05 13:33:00 Jazmine Liu Dawson [facility] POC GLUCOSE UNSOLICITED RESULTS 2024-11-05 12:04:00 Jazmine Liu Dawson [facility] POC GLUCOSE UNSOLICITED RESULTS 2024-11-05 11:27:00 Jazmine Liu Dawson [facility] BLOOD GAS, ARTERIAL 2024-11-05 10:55:00 Jazmine Kelley Dawson [facility] POC GLUCOSE UNSOLICITED RESULTS 2024-11-05 10:08:00 Jazmine Liu Dawson [facility] POC GLUCOSE UNSOLICITED RESULTS 2024-11-05 09:04:00 Jazmine Liu Dawson [facility] ANAEROBIC CULTURE 2024-11-05 08:40:00 Saurabh Chavarria [facility] WOUND CULTURE W/GRAM STAIN, SURGICAL 2024-11-05 08:40:00 Saurabh Chavarria [facility] FUNGAL CULTURE W/SMEAR 2024-11-05 08:40:00 Saurabh Gauthier [facility] IRRIGATION AND DEBRIDEMENT, LOWER EXTREMITY 2024-11-05 07:38:00 Saurabh Chavarria [facility] POC GLUCOSE UNSOLICITED RESULTS 2024-11-05 07:35:00 Jazmine Liu [facility] POC GLUCOSE UNSOLICITED RESULTS 2024-11-05 07:05:00 Duncan Klein [facility] VANCOMYCIN LEVEL AUC 2024-11-05 04:26:00 Duncan Klein [facility] COMPLETE BLOOD COUNT 2024-11-05 04:26:00 Duncan Klein [facility] AUTOMATED DIFFERENTIAL 2024-11-05 04:26:00 César Klein [facility] BASIC METABOLIC PANEL 2024-11-05 04:26:00 Lady Klein [facility] COMPLETE BLOOD COUNT W/DIFF AND PLATELET 2024-11-05 04:26:00 Duncan Klein [facility] GLUCOSE LEVEL BODY FLUID 2024-11-04 20:38:00 Saurabh Jo [facility] CELL COUNT W/ DIFF BODY FLUID 2024-11-04 20:38:00 Saurabh Chavarria [facility] BODY FLUID CULTURE W/GRAM STAIN 2024-11-04 20:38:00 Saurabh Chavarria [facility] CRYSTAL EXAM BODY FLUID 2024-11-04 20:38:00 Saurabh Durant [facility] MRSA BY PCR 2024-11-04 18:55:00 Duncan Klein [facility] XR KNEE 3 VIEWS RIGHT 2024-11-04 17:42:58 Saurabh Rowland [facility] POC GLUCOSE UNSOLICITED RESULTS 2024-11-04 16:27:00 Duncan Klein [facility] VANCOMYCIN LEVEL AUC 2024-11-04 12:22:00 Duncan Klein [facility] POC GLUCOSE UNSOLICITED RESULTS 2024-11-04 11:29:00 Duncan Klein [facility] BLOOD CULTURE 2024-11-04 10:39:00 Duncan Klein [facility] POC GLUCOSE UNSOLICITED RESULTS 2024-11-04 08:24:00 Latoya Duncan [facility] COMPLETE BLOOD COUNT 2024-11-04 07:25:00 Latoya Duncan [facility] AUTOMATED DIFFERENTIAL 2024-11-04 07:25:00 Doug Kleine rebecca [facility] COMPREHENSIVE METABOLIC PANEL 2024-11-04 07:25:00 Latoya Duncan [facility] HEMOGLOBIN A1C 2024-11-04 07:25:00 [facility] 2024-11-04 07:25:00 Latoya, Duncan Joneso rial [facility] PHOSPHORUS LEVEL 2024-11-04 07:25:00 Doug Kleineen [facility] orial [facility] COMPLETE BLOOD COUNT W/DIFF AND PLATELET 2024-11-04 07:25:00 Latoya Duncan [facility] PROTIME-INR 2024-11-04 07:25:00 [facility] 2024-11-03 00:05:00 [facility] US EXTERNAL STUDY 2024-11-03 00:00:00 [facility] XR EXTERNAL STUDY 2024-11-03 00:00:00 Aura [facility] US EXTERNAL STUDY 2024-11-01 00:00:00 [facility] XR, shoulder, 2 or more view 2022-12-09 00:00:00 [facility] XR, shoulder, 2 or more view 2022-09-02 00:00:00 [facility] XR, shoulder, 2 or more view 2022-07-08 00:00:00 [facility] XR, shoulder, 2 or more view 2022-06-09 00:00:00 [facility] Blood culture, peripheral #2 [facility] Wound culture [facility] Anaerobic Culture [facility] Fungal Culture w/Smear [facility] Plan of Care Planned Activity Planned Date Details Comments Source Procedure 2024-12-05 00:00:00 POCT Glucose Mem orial [facility] Encounters Start Date/Time End Date/Time Encounter Type Admission Type Attending [facility] Care Facility Care Department Encounter ID Source 2021-02-10 08:08:16 Inpatient Manish MerchantTO [facility] [id number] [facility] 2020-12-04 10:30:00 Inpatient Manish Merchant [facility]AT[facility] RADI [id number] [facility] 2024-11-04 06:26:00 2024-11-09 14:28:00 Hospital Encounter Cazares, Niesha Ambrosio, Duncan Liu, Jazmine Stratton, Malena Grady [facility] [id number] Isi montalvo [facility] 2024-11-04 06:26:00 2024-11-09 14:28:00 Inpatient Elective JAZMINE LIU [facility] General Medicine [id number] [facility] 2024-11-04 19:55:15 2024-11-03 23:59:00 Outpatient MHIEEPIC MHIEEPIC [id number] Isi montalvo [facility] 2024-11-04 19:50:46 2024-11-03 23:59:00 Outpatient MHIEEPIC MHIEEPIC [id number] Isi montalvo [facility] 2024-11-04 19:48:10 2024-11-03 23:59:00 Outpatient MHIEEPIC MHIEEPIC [id number] Isi montalvo [facility] 2024-11-04 19:52:31 2024-11-01 23:59:00 Outpatient MHIEEPIC MHIEEPIC [id number] Isi montalvo [facility] 2023-06-02 00:00:00 2023-06-02 00:00:00 Outpatient Cheo Carias AOSM AOSM [id number] [facility] 2023-06-02 00:00:00 2023-06-02 00:00:00 Outpatient DO_Narendra_Chantelle Carias AOSM AOSM [id number] [facility] 2023-02-21 00:00:00 2023-02-21 00:00:00 Outpatient FOG_Brown_Chantelle Carias AOSM AO [id number] [facility] 2023-02-21 00:00:00 2023-02-21 00:00:00 Outpatient FOG_Brown_B Jv AOSM AO [id number] [facility] 2023-02-21 00:00:00 2023-02-21 00:00:00 Outpatient FOG_Brown_B Jv AOSM AO [id number] [facility] 2022-12-09 00:00:00 2022-12-09 00:00:00 Manish Mackey MD: [address] [place] [phone] , Ph. [phone] [facility] [place] [facility] [place] [facility] FOG_Ofc [facility] [id number] [facility] 2022-09-02 00:00:00 2022-09-02 00:00:00 Outpatient FOG_Brown_Chantelle Carias AO AO [id number] [facility] 2022-09-02 00:00:00 2022-09-02 00:00:00 Outpatient FOG_Brown_Chantelle Carias AO AO [id number] [facility] 2022-09-02 00:00:00 2022-09-02 00:00:00 Outpatient FOG_Brown_Chantelle Carias AOSM AO [id number] [facility] 2022-09-02 00:00:00 2022-09-02 00:00:00 Manish Mackey MD: [address] [place] [phone] , Ph. [phone] [facility] [place] [facility] [place] [facility] [id number] [facility] 2022-09-01 00:00:00 2022-09-01 00:00:00 Outpatient FOG_Brown_B Jv AO AO [id number] [facility] 2022-07-08 00:00:00 2022-07-08 00:00:00 Outpatient FOG_Brown_B Jv AOSM AO [id number] [facility] 2022-07-08 00:00:00 2022-07-08 00:00:00 Outpatient Manish Mackey AOSM AOSM [id number] 2022-07-08 00:00:00 2022-07-08 00:00:00 Manish Mackey MD: [address] [place] [phone] , Ph. [phone] [facility] [place] [facility] [place] [facility] [place] [id number] [facility] 2022-06-09 09:48:00 2022-06-09 09:48:00 Outpatient FOG_Brown_B Jv AO AO [id number] [facility] 2022-06-09 00:00:00 2022-06-09 00:00:00 Outpatient Manish Mackey AOSM AOSM [id number] 2022-06-09 00:00:00 2022-06-09 00:00:00 Manish Mackey MD: [address] [place] [phone] , Ph. [phone] [facility] [place] [facility] [place] [facility] [place] [id number] [facility] 2022-05-27 09:51:00 2022-05-27 09:51:00 Outpatient FOG_Brown_B Jv AOSM AO [id number] [facility] 2022-05-25 17:05:00 2022-05-26 15:17:00 Inpatient Manish Merchant [facility]AT[facility] SURG [id number] [facility] 2022-05-25 17:05:00 2022-05-26 15:17:00 Inpatient Manish Merchant HCAT[facility] SURG [id number] [facility] 2022-04-21 10:32:00 2022-04-21 10:32:00 Outpatient FOG_Brown_B ayla_ AO AO [id number] [facility] 2022-04-21 00:00:00 2022-04-21 00:00:00 Outpatient Manish Mackey AO AO [id number] 2022-04-21 00:00:00 2022-04-21 00:00:00 Manish Mackey MD: [address] [place] [address] , Ph. [phone] [facility] [place] [facility] [place] [facility] [id number] [facility] 2021-09-15 00:00:00 2021-09-15 23:00:00 Inpatient Manish Merchant HCATO LABO [id number] [facility] 2021-09-15 17:17:00 2021-09-15 17:17:00 Outpatient Manish Mackey HCACL LABO [id number] 2021-09-15 13:45:00 2021-09-15 13:45:00 Outpatient Manish Mackey HCAWU REFE [id number] [facility] 2021-07-16 09:58:00 2021-07-16 09:58:00 Outpatient Manish Merchant HCATO RADI [id number] [facility] 2021-02-10 12:34:20 2021-02-10 12:34:20 Outpatient Manish Mackey HCACL HCACL [id number] Results Test Description Test Time Test Comments Results Result Co mments Source [facility] Wrjuvir3096-07-33 07:00:20* Test Item Value Reference Range Interpretation Comme nts POC Glu (test code = 8157122337) 165 mg/dL 70-99 H POC Glu Comment 1 (test code = 5585785715) Notified RN/MD POC Performing Location (gio t code = 4891904843) 2A S/Or/Ne Lab Interpretation (test cod e = 87620-1) Abnormal [facility] Ayrmkdk6367-30-81 16:08:18* Test Item Value Reference Range Interpretation Comme nts POC Glu (test code = 8051490125) 242 mg/dL 70-99 H POC Performing Location (gio t code = 8405195356) 2A S/Or/Ne Lab Interpretation (test cod e = 39712-7) Abnormal [facility] Skbqmrz8386-19-98 12:25:05* Test Item Value Reference Range Interpretation Comme nts POC Glu (test code = 2964770997) 290 mg/dL 70-99 H POC Performing Location (gio t code = 1304095677) 2A S/Or/Ne Lab Interpretation (test cod e = 92801-0) Abnormal [facility] Tgvualm2024-36-86 11:55:49* Test Item Value Reference Range Interpretation Comme nts POC Glu (test code = 7786858562) 321 mg/dL 70-99 H POC Performing Location (gio t code = 8195564156) 2A S/Or/Ne Lab Interpretation (test cod e = 74447-3) Abnormal [facility] Psjbhqj3159-44-68 06:51:05* Test Item Value Reference Range Interpretation Comme nts POC Glu (test code = 9099973147) 143 mg/dL 70-99 H POC Glu Comment 1 (test code = 9321914225) Notified RN/MD POC Performing Location (gio t code = 5921894600) 2A S/Or/Ne Lab Interpretation (test cod e = 91684-6) Abnormal [facility] Zbnfned4976-84-83 17:33:46* Test Item Value Reference Range Interpretation Comme nts POC Glu (test code = 2481501984) 212 mg/dL 70-99 H POC Performing Location (gio t code = 7986445924) 2A S/Or/Ne Lab Interpretation (test cod e = 33077-6) Abnormal [facility]2024-12-18 13:00:20* Test Item Value Reference Range Interpretation Comme nts POC Glu (test code = 8484758090) 286 mg/dL 70-99 H POC Performing Location (gio t code = 2190572962) 2A S/Or/Ne Lab Interpretation (test cod e = 14360-2) Abnormal [facility] Hcgajyz7016-73-03 07:02:35* Test Item Value Reference Range Interpretation Comme nts POC Glu (test code = 5691592362) 247 mg/dL 70-99 H POC Glu Comment 1 (test code = 2743025718) Notified RN/MD POC Performing Location (gio t code = 8823876675) 2A S/Or/Ne Lab Interpretation (test cod e = 58927-1) Abnormal [facility]2024-12-17 16:56:13* Test Item Value Reference Range Interpretation Comme nts POC Glu (test code = 1695059899) 248 mg/dL 70-99 H POC Glu Comment 1 (test code = 2132106327) Notified RN/MD POC Performing Location (gio t code = 0294365649) 2A S/Or/Ne Lab Interpretation (test cod e = 21197-1) Abnormal [facility]2024-12-17 12:42:15* Test Item Value Reference Range Interpretation Comme nts POC Glu (test code = 1448317637) 284 mg/dL 70-99 H POC Glu Comment 1 (test code = 0389063422) Notified RN/MD POC Performing Location (gio t code = 1537397059) 2A S/Or/Ne Lab Interpretation (test cod e = 68799-2) Abnormal [facility]2024-12-17 12:08:25* Test Item Value Reference Range Interpretation Comme nts POC Glu (test code = 7093450306) 256 mg/dL 70-99 H POC Glu Comment 1 (test code = 6698206570) Notified RN/MD POC Performing Location (gio t code = 3847362818) 2A S/Or/Ne Lab Interpretation (test cod e = 84656-9) Abnormal [facility]2024-12-17 06:54:02* Test Item Value Reference Range Interpretation Comme nts POC Glu (test code = 0373321755) 248 mg/dL 70-99 H POC Glu Comment 1 (test code = 4413192325) Notified RN/MD POC Performing Location (gio t code = 9787742981) 2A S/Or/Ne Lab Interpretation (test cod e = 14489-0) Abnormal [facility] Cxhklzi7939-44-84 00:00:39* Test Item Value Reference Range Interpretation Comme nts POC Glu (test code = 3352283568) 212 mg/dL 70-99 H POC Glu Comment 1 (test code = 4867075494) Notified RN/MD POC Performing Location (gio t code = 4778573921) 2A S/Or/Ne Lab Interpretation (test cod e = 16042-9) Abnormal [facility] Qtndncp5281-10-50 17:37:34* Test Item Value Reference Range Interpretation Comme nts POC Glu (test code = 4716359182) 261 mg/dL 70-99 H POC Glu Comment 1 (test code = 7678260726) Notified RN/MD POC Performing Location (gio t code = 1420204394) 2A S/Or/Ne Lab Interpretation (test cod e = 05609-5) Abnormal [facility] Qmqtbti7232-29-95 15:25:01* Test Item Value Reference Range Interpretation Comme nts POC Glu (test code = 9351215678) 249 mg/dL 70-99 H POC Glu Comment 1 (test code = 7215478199) Notified RN/MD POC Performing Location (gio t code = 3375523187) 2A S/Or/Ne Lab Interpretation (test cod e = 92386-5) Abnormal [facility] Xgydhzq4066-00-52 13:37:22* Test Item Value Reference Range Interpretation Comme nts POC Glu (test code = 5132371128) 288 mg/dL 70-99 H POC Performing Location (gio t code = 0768512720) 2A S/Or/Ne Lab Interpretation (test cod e = 83557-2) Abnormal [facility] Jddrphp3135-26-00 12:12:37* Test Item Value Reference Range Interpretation Comme nts POC Glu (test code = 9130960293) 330 mg/dL 70-99 H POC Glu Comment 1 (test code = 4160670062) Notified RN/MD POC Performing Location (gio t code = 6311868752) 2A S/Or/Ne Lab Interpretation (test cod e = 22905-3) Abnormal [facility] Lffqppr1077-64-71 11:30:18* Test Item Value Reference Range Interpretation Comme nts POC Glu (test code = 5367896506) 327 mg/dL 70-99 H POC Performing Location (gio t code = 0668773092) 2A S/Or/Ne Lab Interpretation (test cod e = 75795-4) Abnormal [facility] Tyiaxqx8422-89-74 10:10:34* Test Item Value Reference Range Interpretation Comme nts POC Glu (test code = 1829495612) 327 mg/dL 70-99 H POC Glu Comment 1 (test code = 7694240259) Notified RN/MD POC Performing Location (gio t code = 5895282736) 2A S/Or/Ne Lab Interpretation (test cod e = 87803-1) Abnormal [facility] Zpeipzr5768-06-53 09:09:20* Test Item Value Reference Range Interpretation Comme nts POC Glu (test code = 1133269195) 352 mg/dL 70-99 H POC Glu Comment 1 (test code = 4436990357) Notified RN/MD POC Performing Location (gio t code = 4874416433) 3/PACU Lab Interpretation (test cod e = 74356-2) Abnormal [facility] Nnkgreq6164-50-05 08:18:59* Test Item Value Reference Range Interpretation Comme nts POC Glu (test code = 6565462562) 323 mg/dL 70-99 H POC Performing Location (gio t code = 5782346348) 3/PreOp Lab Interpretation (test cod e = 30997-0) Abnormal [facility] Krzkyhf8467-54-75 07:10:42* Test Item Value Reference Range Interpretation Comme nts POC Glu (test code = 5585708462) 321 mg/dL 70-99 H POC Performing Location (gio t code = 0311821467) 3/PreOp Lab Interpretation (test cod e = 10530-5) Abnormal [facility] Mdtrkeq5050-20-57 16:30:10* Test Item Value Reference Range Interpretation Comme nts POC Glu (test code = 5986105519) 172 mg/dL 70-99 H POC Glu Comment 1 (test code = 6478469002) Notified RN/MD POC Performing Location (gio t code = 6391834791) 1A GM/Surg Lab Interpretation (test cod e = 56168-0) Abnormal [facility] Lzvxgsx1681-86-33 11:37:25* Test Item Value Reference Range Interpretation Comme nts POC Glu (test code = 5904125659) 216 mg/dL 70-99 H POC Glu Comment 1 (test code = 8639787333) Notified RN/MD POC Performing Location (gio t code = 4184849957) 1A GM/Surg Lab Interpretation (test cod e = 78029-6) Abnormal [facility] Fhekrol2098-11-70 08:26:46* Test Item Value Reference Range Interpretation Comme nts POC Glu (test code = 5761024410) 287 mg/dL 70-99 H POC Glu Comment 1 (test code = 7970756465) Notified RN/MD POC Performing Location (gio t code = 9750074951) 1A GM/Surg Lab Interpretation (test cod e = 66021-0) Abnormal [facility]- XR SHOULDER 1 V [id number] 10:33:00 [facility] 1960 Sex: M Patient Name: EREN PARADA Unit No: [id number] EXAMS: CPT CODE: [id number] XR SHOULDER 1 V RT 65289 IMAGES PROVIDED: Single AP view of the right shoulder FINDINGS: 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 Noacute fracture. Visualized lung is clear. IMPRESSION: Right reverse total shoulder arthoplasty without immediate complication. at 1033 Reported and signed by: Maximo Chen M.D. CC: Manish Mackey MD Technologist: ALEX JOE (RT.R) Transcribed D/ (1033) MitchSLJ [facility] NAME: EREN PARADA [address] [facility] PHYS: Manish Leos MD : 1960 AGE: 61 SEX: M [place] [address] LOC: Y.O17 A PHONE #: [phone] EXAM DATE: 05/25/2022 STATUS: ADM IN FAX #: [phone] RAD #: D/C DT PAGE 1 Signed Report Patient Name: EREN PARADA Unit No: [id number] EXAMS: CPT CODE: [id number] XR SHOULDER 1 V RT 40764 (Continued) Orig Print D/T: S: 05/26/2022 (1036) [facility] NAME: EREN PARADA [address] [facility] PHYS: Manish Leos MD : 1960 AGE: 61 SEX: M [place] [address] LOC: Y.O17 A PHONE #: [phone] EXAM DATE: 05/25/2022 STATUS: ADM IN FAX #: [phone] RAD #: D/ C DT PAGE 2 Signed InyiqvCTQSOA6654-56-61 07:10:00* Test Item Value Reference Range Interpretation Comme nts GLUBED (test code = GLUBED) 234 mg/dL 60-125 H [id number] 05:07:00* Test Item Value Reference Range Interpretation Comme nts GLUBED (test code = GLUBED) 338 mg/dL 60-125 H lapqnn6185-19-40 04:53:00* Test Item Value Reference Range Interpretation Comme nts glubed (test code = glubed) 338 mg/dL 60-125 H performing lab: (test code = performing lab:) [facility] Ibohksoqkdkged8227-23-24 17:41:00* Test Item Value Reference Range Interpretation Comme nts glubed (test code = glubed) 234 mg/dL 60-125 H performing lab: (test code = performing lab:) [place] [id number] 12:46:00* Test Item Value Reference Range Interpretation Comme nts GLUBED (test code = GLUBED) 228 mg/dL 60-125 H obuhxw1792-75-35 12:19:00* Test Item Value Reference Range Interpretation Comme nts glubed (test code = glubed) 228 mg/dL 60-125 H performing lab: (test code = performing lab:) [facility] CenterGLUBED2022-07-05 11:05:00* Test Item Value Reference Range Interpretation Comme nts GLUBED (test code = GLUBED) 308 mg/dL 60-125 H [id number] 10:54:00* Test Item Value Reference Range Interpretation Comme nts glubed (test code = glubed) 308 mg/dL 60-125 H performing lab: (test code = performing lab:) [facility] Coronavirus 2019 [id number] 07:38:00* Test Item Value Reference Range Interpretation Comme nts Novel Coronavirus 2019 Inhouse (test code = COVNONPUI) Negative Negative Positive resul ts are indicative of the presence liWJQA-LkB-5 RNA, clinical correlation with patient historyand other [...] the qualitative detection of nucleic acids from sghNUDZ-EoG-3 virus and diagnosis of SARS-CoV-2 virusinfection. It is an Emergency Use Authorization (EUA) testauthorized by the U.S. FDA. Novel Coronavirus 2019 [id number] 07:37:00* Test Item Value Reference Range Interpretation Comme nts Novel Coronavirus 2019 Inhouse (test code = COVNONPUI) Negative Negative Positive resul ts are indicative of the presence vhWUUF-ObY-0 RNA, clinical correlation with patient historyand other [...] the qualitative detection of nucleic acids from trlGVNO-FaE-5 virus and diagnosis of SARS-CoV-2 virusinfection. It is an Emergency Use Authorization (EUA) testauthorized by the U.S. FDA. COMPREHENSIVE METABOLIC [id number] 10:36:00* Test Item Value Reference Range Interpretation [...] 92.6 >60 Unit of m easure: mL/min/1.73 n5Atrrsftan Range:Healthy Adults >90 mL/min/1.73 m2 For Chronic [...] = ALKP) 111 U/L 46-116 N PROTHROMBIN [id number] 10:35:00* Test Item Value Reference Range Interpretation [...] Patient is on Heparin Drip? NOTHROMBOPLASTIN TIME [id number] 10:35:00* Test Item Value Reference Range Interpretation [...] 0 % 0-0 N Novel Coronavirus 2018 [id number] 07:21:00* Test Item Value Reference Range Interpretation Comme nts Novel Coronavirus 2019 Inhouse (test code = COVNONPUI) Negative Negative Positive resul ts are indicative of the presence rwWGBS-JcF-9 RNA, clinical correlation with patient historyand other [...] in vitro. SPECIMEN COMMENT: NASALNovel Coronavirus 2019 [id number] 07:20:00* Test Item Value Reference Range Interpretation Comme nts Novel Coronavirus 2019 Inhouse (test code = COVNONPUI) Negative Negative Positive resul ts are indicative of the presence oaKQRW-WgI-3 RNA, clinical correlation with patient historyand other [...] fructosamineshould be considered for these patients.DONE AT: [facility] [address] [place] [address] GLYCOSYLATED HEMOGLOBIN (HA1C)2021-09-15 17:34:00* Test Item Value [...] be considered for these patients. BASIC METABOLIC [id number] 10:16:00* Test Item Value Reference Range Interpretation [...] 86.6 >60 Unit of m easure: mL/min/1.73 y6Ejenrwclh Range:Healthy Adults >90 mL/min/1.73 m2 For Chronic Kidney Disease: Stage II Mild Decrease in GFR 60-90 Stage III Moderate Decrease in GFR 30-59 Stage IV Severe Decrease in GFR 15-29 Stage V Kidney Failure <15 CREATININE (test code = CREAT) 0.89 mg/dL 0.55-1.30 N CALCIUM (test code = CA) 8.7 mg/dL 8.2-10.1 N - CT UP EXTREM W/O CONT [id number] 12:14:00 [facility] 1960 Sex: M Patient Name: EREN PARADA Unit No: [id number] EXAMS: CPT CODE: [id number] CT UP EXTREM W/[place] [id number] CT OF THE RIGHT SHOULDER WITH SAGITTAL [...] with ACR practice standards and adherence to master barber's recommendations. Rotator cuff arthropathy is again noted which is more severe than on the previous examination. There is anterior superior subluxation of the humeral head at 1214 Reported and signed by: Gab Ness MD CC: Manish Mackey MD Technologist: Wolf Graham,RT(R) CTDI: DLP: Trnscrpt: 07/16/2021 (1214) t.SDR.JCL [facility] NAME: EREN PARADA [address] [facility] PHYS: Manish Leos : 1960 AGE: 60 SEX: M [place] [address] LOC: Y.RAD PHONE #: [phone] EXAM DATE: 07/16/2021 STATUS: REG CLI FAX #: [phone] RAD #: D/C DT PAGE 1 Signed Report Patient Name: EREN PARADA Unit No: [id number] EXAMS: CPT CODE: [id number] CT UP EXTREM W/[place] [id number] (Continued) Orig Print D/T: S: 07/16/2021 (1217) [facility] NAME: EREN PARADA [address] [facility] PHYS: Manish Leos : 1960 AGE: 60 SEX: M [place] [address] LOC: Y.RAD PHONE #: [phone] EXAM DATE: 07/16/2021 STATUS: REG CLI FAX #: [phone] RAD #: D/C DT PAGE 2 Signed [id number] 12:07:00* Test Item Value Reference Range Interpretation Comme nts GLUBED (test code = GLUBED) 192 mg/dL 60-125 H Novel Coronavirus 2019 [id number] 03:02:00* Test Item Value Reference Range Interpretation Comme nts Novel Coronavirus 2019 Inhouse (test code = COVNONPUI) Negative Negative Positive resul ts are indicative of the presence xvWTDE-KcL-8 RNA, clinical correlation with patient historyand other [...] for the identification of SARS-CoV-2 RNA usingthe Mygistics M2000 System under the FDA Emergency UseAuthorization. The testing is performed by personneltrained in the procedures for the Pantoja M2000 moleculardiagnostic SARS-CoV-2 assay in vitro. Novel Coronavirus 2019 [id number] 03:02:00* Test Item Value Reference Range Interpretation Comme nts Novel Coronavirus 2019 Inhouse (test code = COVNONPUI) Negative Negative Positive resul ts are indicative of the presence leLMES-YeX-6 RNA, clinical correlation with patient historyand other [...] assay in vitro. - XR ARTHROGRAM SHLDR [id number] 12:21:00 [facility] 1960 Sex: M Patient Name: EREN PARADA Unit No: [id number] EXAMS: CPT CODE: [id number] [place] [address] RIGHT SHOULDER ARTHROGRAM AND LIDOCAINE INJECTION. DIAGNOSIS: Full- [...] with ACR practice standards and adherence to master barber's recommendations. Degenerative changes are present as described. The rotator cuff isabnormal as noted. at 1221 Reported and signed by: Gab Ness MD CC: Manish Mackey MD Technologist: Agata Hobbs RT.(R) Transcribed D/ (1221) Karen [facility] NAME: EREN PARADA [address] [facility] PHYS: Manish Leos : 1960 AGE: 60 SEX: M [place], [place] [address]UHZV NO: [id number] LOC: Y.RAD PHONE #: [phone] EXAM DATE: 12/04/2020 STATUS: REG CLI FAX #: [phone] RAD #: D/C DT PAGE 1 Signed Report Patient Name: EREN PARADA Unit No: [id number] EXAMS: CPT CODE: [id number] [place] [id number] (Continued) Orig Print D/T: S: 12/04/2020 (1224) [facility] NAME: EREN PARADA [address] [facility] PHYS: Manish Leos : 1960 AGE: 60 SEX: M [place], [place] [address] LOC: Y.RAD PHONE #: [phone] EXAM DATE: 12/04/2020 STATUS: REG CLI FAX #: [phone] RAD #: D/C DT PAGE 2 Signed Report- CT UP EXTRM W W/O CON [id number] 12:21:00 [facility] : 1960 Sex: M Patient Name: EREN PARADA Unit No: [id number] EXAMS: CPT CODE: [id number] CT UP EXTRM W W/[place] [address] RIGHT SHOULDER ARTHROGRAM AND LIDOCAINE INJECTION. DIAGNOSIS: Full- [...] with ACR practice standards and adherence to master barber's recommendations. Degenerative changes are present as described. The rotator cuffis abnormal as noted. at 1221 Reported and signed by: Gab Ness MD CC: Manish Mackey MD Technologist: Wolf graciaRT(R) CTDI: DLP: Trnscrpt: 12/04/2020 (1221) t.ADIR.L [facility] NAME: EREN PARADA [address] [facility] PHYS: Manish Leos : 1960 AGE: 60 SEX: M [place], [place] [address] LOC: Y.RAD PHONE #: [phone] EXAM DATE: 12/04/2020 STATUS: REG CLI FAX #: [phone] RAD #: D/C DT PAGE 1 Signed Report Patient Name: EREN PARADA Unit No: [id number] EXAMS: CPT CODE: [id number] CT UP EXTRM W W/[place] [id number] (Continued) Orig Print D/T: S:12/04/2020 (1224) [facility] NAME: EREN PARADA [address] [facility] PHYS: Manish Leos : 1960 AGE: 60 SEX: M [place], [place] [address] LOC: Y.RAD PHONE #: [phone] EXAM DATE: 12/04/2020 STATUS: REG CLI FAX #: [phone] RAD #: D/C DT PAGE 2 Signed Report Consult Notes Date/Time Note Provider Source 2024-11-09 14:23:16 Associated Order(s): IP CONSULT TO ACTION FINISHER Responding to a diabetes education consult. Chart reviewed. Pt admitted with glucose 312 mg/dl and A1c >14%. No history of diabetes noted from patient. Patient ready for discharge states he is ready to go home. Daughter on phone and sister at bedside. Pt declined education. Sister provided handouts from [employer] on diabetes management. Reviewed plate method, exercise importance and goals for glucose monitoring. Sister reports she is familiar with diabetes management. No questions at this time. ADA handouts provided on topics discussed. KO KOHANGA REO Nursing [facility] 2024-11-08 15:13:16 Associated Order(s): IP CONSULT TO CASE MANAGEMENT Noted MD consult for CM consult. Spoke to Sabrina with ID clinic. [place] already arranged. Provided pt's room and cell phone numbers to reach pt. Pt/daughter and sister at updated. Pt will go to ID clinic tomorrow. KO KOHANGA REO Case Management Rigging Supervisor [facility] 2024-11-06 16:23:23 Patient does not have an identified temple preference but a visit from stock control clerk services was requested for patient during admission process. Automatic Quilling Machine Operator attempted to visit patient but found patient asleep and unresponsive to junior programmer's presence and attempt to visit. Automatic Quilling Machine Operator will request follow up from stock control clerk services for patient as circumstances allow. [facility] 2024-11-04 19:45:00 Reason For Consult Right knee swelling, effusion History Of Present Illness Eren Parada is a 64 y.o. male with PMH of Heavy alcohol abuse, type II DM but not on any medications, osteoarthritis who received injections to his right knee almost 1 week ago came with complaints of right knee pain swelling for the past 3 days that gradually worsened He went to [facility] ER and was diagnosed with possible septic arthritis and transferred here for orthopedic surgery evaluation At present time patient's right knee is swollen painful, complains of 8 x 10 pain constant throbbing in nature nonradiating He admits to drinking about 4-5 drinks of vodka every day He was given broad-spectrum antibiotics at outside ER Patient complains of significant pain in knee. He had X ray, ultrasound were done at [facility] but images are not uploaded. It seems like they also did aspiration of knee but no reports are uploaded in our system. Past Medical History He has a past medical history of Diabetes mellitus (HCC). Surgical History He has a past surgical history that includes Shoulder surgery; Hiatal hernia repair; and Testicle surgery (Right). Social History He reports that he has never smoked. He has never used smokeless tobacco. He reports current alcohol use of about 6.0 standard drinks of alcohol per week. He reports that he does not use drugs. Allergies Patient has no known allergies. Medications No medications prior to admission. Review of Systems GEN: no fever, no chills, no fatigue HEENT: no headache,no blurry vision,no ear pain,no sore throat,no nasal congestion CVS: no chest pain, no dyspnea, no palpitations RESP: no cough, no wheeze GI: no abdominal pain, no nausea,no emesis,no diarrhea,no constipation : no dysuria, no polyuria MUSKULOSKETEAL: per HPI SKIN: no rash NEURO: no headache, no blurry vision, no weakness, no tingling, no numbness, no dysarthria Physical Exam GEN: patient awake, alert, Oriented to time, place, person, in no distress HEENT: no pallor, no icterus, no JVD, no thyromegaly, oral mucosa dry CVS: S1, S2 +, RRR, no murmur, no edema LUNGS: normal respiratory effort, no wheeze, no crackles, good air entry both sides GI: BS +, soft, not tender, no organomegaly, not distended MUSKULO SKELETAL: Rt knee warm, swollen, tender, warm to touch, significant effusion of the knee NEURO: no focal deficits, Normal strength in all Extremities, sensation intact PSYCH: normal mood Last Recorded Vitals Blood pressure 153/80, pulse 104, temperature 36.6 ?C (97.9 ?F), resp. rate 18, height 1.626 m (5' 4.02"), weight 68.3 kg (150 lb 8.1 oz), SpO2 97%. Relevant Results X ray: Tricompartmental osteoarthritis of the right knee Assessment & Plan Principal Problem: Septic arthritis (HCC) Active Problems: Diabetes mellitus (HCC) Impression: Right knee effusion with a differential diagnosis septic arthritis Plan: I recommend knee aspiration Aspiration was performed today Procedure: After obtaining verbal consent, we prepped the superolateral aspect of the right knee with alcohol swab, we placed a 18-gauge needle into the knee joint and aspirated about 50 cc of purulent joint fluid. The fluid was sent for the synovial fluid analysis The amount of the fluid which is purulent, I recommend surgical treatment Surgery plan: I&D of the right knee with arthrotomy with synovectomy. Surgery is Scheduled for gelatin powder mixer NPO after midnight Risks and benefits were reviewed with patient. Potential complications were discussed that include but not limited to infection, wound complication, injury to nerve, anesthesia complication, worsening oxygenation status. , May require multiple procedures, DVT, PE, Fat embolism. Consent was obtained. KO KOHANGA REO [facility] History and Physical Notes Date/Time Note Provider Source 2024-11-05 07:28:48 Knee aspiration found purulent material, I recommend surgery KO KOHANGA REO Source Note - Duncan Klein MD - 11/04/2024 8:07 AM KAIAKO KOHANGA REO History Of Present Illness Eren Parada is a 64 y.o. male with PMH of Heavy alcohol abuse, Dm2 but not on any medications, osteoarthritis who received injections to his right knee almost 1 week ago came with complaints of right knee pain swelling for the past 3 days that gradually worsened He went to [facility] ER and was diagnosed with possible septic arthritis and transferred here for orthopedic surgery evaluation At present time patient's right knee is swollen painful, complains of 8 x 10 pain constant throbbing in nature nonradiating He admits to drinking about 4-5 drinks of vodka every day He was given broad-spectrum antibiotics at outside ER Past Medical History He has no past medical history on file. Surgical History He has no past surgical history on file. Family History No family history on file. Social History He has no history on file for tobacco use, alcohol use, and drug use. Allergies Patient has no known allergies. Medications No medications prior to admission. REVIEW OF SYSTEMS: GEN: no fever, no chills, no fatigue HEENT: no headache,no blurry vision,no ear pain,no sore throat,no nasal congestion CVS: no chest pain, no dyspnea, no palpitations RESP: no cough, no wheeze GI: no abdominal pain, no nausea,no emesis,no diarrhea,no constipation : no dysuria, no polyuria MUSKULOSKETEAL: per HPI SKIN: no rash NEURO: no headache, no blurry vision, no weakness, no tingling, no numbness, no dysarthria PHYSICAL EXAM: GEN: patient awake, alert, Oriented to time, place, person, in no distress HEENT: no pallor, no icterus, no JVD, no thyromegaly, oral mucosa dry CVS: S1, S2 +, RRR, no murmur, no edema LUNGS: normal respiratory effort, no wheeze, no crackles, good air entry both sides GI: BS +, soft, not tender, no organomegaly, not distended MUSKULO SKELETAL: Rt knee warm, swollen, tender NEURO: no focal deficits, Normal strength in all Extremities, sensation intact PSYCH: normal mood Last Recorded Vitals Blood pressure 122/77, pulse 90, temperature 36.8 ?C (98.2 ?F), SpO2 95%. Relevant Results Pertinent Labs : Lab Results Component Value Date WBC 11.72 (H) 11/04/2024 Hgb 11.7 (L) 11/04/2024 Hct 34.3 (L) 11/04/2024 Plt Count 345 11/04/2024 Lab Results Component Value Date Sodium Lvl 133 (L) 11/04/2024 Potassium Lvl 4.7 (H) 11/04/2024 Chloride Lvl 101 11/04/2024 CO2 Lvl 23.9 11/04/2024 BUN 18 11/04/2024 Creatinine Lvl 0.88 11/04/2024 Glucose Lvl 312 (H) 11/04/2024 POC Glu 287 (H) 11/04/2024 Lab Results Component Value Date Calcium Lvl 8.8 11/04/2024 Magnesium 1.74 11/04/2024 Phosphorus Lvl 3.4 11/04/2024 Lab Results Component Value Date AST 41 (H) 11/04/2024 ALT 34 11/04/2024 Alkaline Phosphatase 203 (H) 11/04/2024 No results found for this or any previous visit from the past 365 days. Pertinent labs and radiology findings reviewed Assessment and Plan: Problem list include Possible right knee septic arthritis, present prior to admission Alcohol abuse, counseled Uncontrolled diabetes mellitus type 2 Plan Orthopedics consult Cefepime, pharmacy dosing vancomycin N.p.o. for now Sliding scale insulin for now and start long-acting insulin and childbirth educator consult once patient can tolerate p.o. intake CIWA protocol for alcohol abuse DVT ppx: chemical ppx once cleared by Ortho DISPO: expect 2 Mn stay KO KOHANGA REO [facility] 2024-11-04 08:07:13 History Of Present Illness Eren Parada is a 64 y.o. male with PMH of Heavy alcohol abuse, Dm2 but not on any medications, osteoarthritis who received injections to his right knee almost 1 week ago came with complaints of right knee pain swelling for the past 3 days that gradually worsened He went to [facility] ER and was diagnosed with possible septic arthritis and transferred here for orthopedic surgery evaluation At present time patient's right knee is swollen painful, complains of 8 x 10 pain constant throbbing in nature nonradiating He admits to drinking about 4-5 drinks of vodka every day He was given broad-spectrum antibiotics at outside ER Past Medical History He has no past medical history on file. Surgical History He has no past surgical history on file. Family History No family history on file. Social History He has no history on file for tobacco use, alcohol use, and drug use. Allergies Patient has no known allergies. Medications No medications prior to admission. REVIEW OF SYSTEMS: GEN: no fever, no chills, no fatigue HEENT: no headache,no blurry vision,no ear pain,no sore throat,no nasal congestion CVS: no chest pain, no dyspnea, no palpitations RESP: no cough, no wheeze GI: no abdominal pain, no nausea,no emesis,no diarrhea,no constipation : no dysuria, no polyuria MUSKULOSKETEAL: per HPI SKIN: no rash NEURO: no headache, no blurry vision, no weakness, no tingling, no numbness, no dysarthria PHYSICAL EXAM: GEN: patient awake, alert, Oriented to time, place, person, in no distress HEENT: no pallor, no icterus, no JVD, no thyromegaly, oral mucosa dry CVS: S1, S2 +, RRR, no murmur, no edema LUNGS: normal respiratory effort, no wheeze, no crackles, good air entry both sides GI: BS +, soft, not tender, no organomegaly, not distended MUSKULO SKELETAL: Rt knee warm, swollen, tender NEURO: no focal deficits, Normal strength in all Extremities, sensation intact PSYCH: normal mood Last Recorded Vitals Blood pressure 122/77, pulse 90, temperature 36.8 ?C (98.2 ?F), SpO2 95%. Relevant Results Pertinent Labs : Lab Results Component Value Date WBC 11.72 (H) 11/04/2024 Hgb 11.7 (L) 11/04/2024 Hct 34.3 (L) 11/04/2024 Plt Count 345 11/04/2024 Lab Results Component Value Date Sodium Lvl 133 (L) 11/04/2024 Potassium Lvl 4.7 (H) 11/04/2024 Chloride Lvl 101 11/04/2024 CO2 Lvl 23.9 11/04/2024 BUN 18 11/04/2024 Creatinine Lvl 0.88 11/04/2024 Glucose Lvl 312 (H) 11/04/2024 POC Glu 287 (H) 11/04/2024 Lab Results Component Value Date Calcium Lvl 8.8 11/04/2024 Magnesium 1.74 11/04/2024 Phosphorus Lvl 3.4 11/04/2024 Lab Results Component Value Date AST 41 (H) 11/04/2024 ALT 34 11/04/2024 Alkaline Phosphatase 203 (H) 11/04/2024 No results found for this or any previous visit from the past 365 days. Pertinent labs and radiology findings reviewed Assessment and Plan: Problem list include Possible right knee septic arthritis, present prior to admission Alcohol abuse, counseled Uncontrolled diabetes mellitus type 2 Plan Orthopedics consult Cefepime, pharmacy dosing vancomycin N.p.o. for now Sliding scale insulin for now and start long-acting insulin and childbirth educator consult once patient can tolerate p.o. intake CIWA protocol for alcohol abuse DVT ppx: chemical ppx once cleared by Ortho DISPO: expect 2 Mn stay KO KOHANGA REO KO KOHANGA REO Internal Medicine Physician [facility] Procedure Notes Date/Time Note Provider Source 2024-11-05 07:38:00 Date: 11/05/2024 Diagnosis: Right Knee septic arthritis Procedures: Irrigation and debridement of the right knee joint Arthrotomy of the right knee with a synovectomy Placement of antibiotic cement beads using stimulan Surgeons: * Saurabh Chavarria - Primary Payroll Assistant: * No surgical staff found * Anesthesia: General Estimated Blood Loss: Minimal Drains: * None in log * Urine Output: None Indications: Eren Parada is an 64 y.o. male who was admitted in the hospital with a septic arthritis of the right knee. Knee aspiration shows the purulent material so operative procedure was recommended.. The risks, benefits, and alternatives of the above procedure were discussed and the patient elected to proceed. Procedure Details: The patient was seen in the preoperative area. The site of surgery was properly noted/marked if necessary per policy. The patient has been actively warmed in preoperative area. Preoperative antibiotics have been ordered and given within 1 hours of incision. Venous thrombosis prophylaxis have been ordered including unilateral sequential compression device Technique: The patient was brought to the operating room and placed on the operating table in supine position with a bump under the right hip. General anesthesia was given preoperative IV antibiotic was given. Timeout was performed and tourniquet was inflated by using the elevation of the extremity without using any Esmarch. About 8 cm longitudinal incision was placed over the anterior aspect he right knee with the start from the superior border of the patella Intact distally up to the patella tendon. Full-thickness skin flap was elevated. Medial parapatellar incision was placed for the knee joint capsule and knee joint was open. As soon as we open the knee joint we found purulent drainage from the joint. Deep culture was obtained. We drained about close to 50 more cc. After drainage of the all the fluid, we did a debridement of the joint and did a synovectomy. We did notice underlying osteoarthritis of the joint. Thorough irrigation of the knee joint was done by using a cystoscopy tubing and using about 6 L of normal saline. We opened the stimulant antibiotic beads and mixed with the vancomycin and tobramycin and was placed over the bead template. Once the beads were set there was placed over the suprapatellar area deep to the joint capsule. Extensor retinaculum was repaired by using a 0 PDS suture subcutaneous tissue was closed by 2-0 PDS suture and skin incision was closed by 2-0 Prolene suture. The dressing was applied with Xeroform 4 x 4 gauze Kerlix and Sergio bandage. The tourniquet was deflated and found brisk capillary refill in the toes. The patient was shifted in the recovery room in stable condition. The patient tolerated entire operative procedures very well. I, Dr. Chavarria performed entire operative procedure. Findings: Specimens ID Source Type Tests Collected By Collected At Frozen? Priority Lab ID A Knee, Right E-Swab ANAEROBIC CULTURE WOUND CULTURE W/GRAM STAIN, SURGICAL FUNGAL CULTURE W/SMEAR Saurabh Chavarria MD 11/05/24 0840 Routine [id number], [id number], [id number] Description: intraoperative knee culture Implants Type Name Action Serial No. Graft KIT PASTE STIMULAN RAPID CURE - [id number] Implanted Procedure for cancer: Procedure for Cancer?: No Complications: No Disposition: PACU Condition: stable Attending Attestation: I was present and scrubbed for the entire procedure. [facility]
[2024-11-14 14:27] LABS: Absolute Basophils 0.1 K/uL (0-0.5); Absolute Eosinophils 0.2 K/uL (0-0.5); Absolute Lymphocytes (CBC) 1.5 K/uL (0.7-4.9); Absolute Neutrophil 8.5 K/uL (1.8-8.0); Basophils % 0.6 % (0-1.3); Eosinophils % 2.1 % (0-4.4); Hematocrit 30.7 % (39.6-49.0); Lymphocytes % 13.2 % (15.3-44.8); MCH 29.6 pg (27.0-35.0); MCHC 32.4 g/dL (32.0-36.0); MCV 91.3 fL (80-100); Monocytes % 8.7 % (3.3-12.3); Neutrophils % 75.4 % (41.7-73.7); Platelets 606 thou/uL (152-406); RBC Red Blood Cell Count 3.37 M/uL (4.33-5.43); Red Cell Distribution Width 12.7 % (12.1-15.2)
[2024-11-14] MEDS ORDERED: MORPHINE 4 MG/ML SYR ONE (14:32)
[2024-11-14] MEDS ORDERED: ONDANSETRON 4 MG/2 ML VIAL ONE (14:32)
[2024-11-14 14:45] LABS: Anion Gap 7.1 mEq/L (5.0-15.0)
[2024-11-14 14:47] LABS: Potassium 4.1 mEq/L (3.5-5.1)
--- NOTE | 2024-11-14 15:19 | EDPHYS ---
Physician Documentation [facility] Name: Carlos Parada Age: 64 yrs Sex: Male : 1960 Arrival Date: 11/14/2024 Time: 13:52 Bed 18 Private MD: None, None ED Physician Joey Mera HPI: 11/14 14:13 This 64 yrs old Male presents to ER via EMS with complaints of Knee Pain. ec2 14:13 Patient arrives today for evaluation of knee pain on the right side. Patient with ec2 recent admission and washout for septic arthritis. Reports he has been on IV infusions of antibiotics. Is here because he ran out of his pain medications last night and is having pain today. No other concerns injuries or trauma. No fevers or chills.. Historical: - Allergies: 14:02 No Known Allergies; db - PMHx: 14:02 Hernia; db - PSHx: 14:02 R shoulder replacment; Repair of inguinal hernia; db - Immunization history:: Adult Immunizations unknown. - Infectious Disease History:: Denies. - Social history:: Smoking status: Patient denies any tobacco usage or history of. ROS: 14:13 Constitutional: as per hpi ec2 Exam: 14:13 Constitutional: GEN: NAD Head: atraumatic Eyes: EOMI Ears: External ears are ec2 normal. CV: regular rate LUNGS: no respiratory distress ABD: non-distended SKIN: no evidence of rashes MSK: Right knee with intact wound, well-approximated, well-healing, no redness, no erythema, no drainage Vital Signs: 13:51 BP 130 / 86; Pulse 59; Resp 16; Temp 98.6; Pulse Ox 97% ; Weight 68.04 kg; Height 5 ft. db 4 in. ; Pain 10/10; 15:42 BP 124 / 67; Pulse 56; Resp 16; Pulse Ox 97% ; cm10 13:51 Body Mass Index 25.75 (68.04 kg, 162.56 cm) db 13:51 Pain Scale: Adult db MDM: 14:07 Medical Screening Exam initiated ec2 14:13 Data reviewed: vital signs, nurses notes. ED course: Patient arrives today for ec2 evaluation of right knee pain with recent surgery. Examination yields MSK findings as above. Will obtain lab work and treat the patient's pain. Suspect pain from recent procedure.. 14:47 ED course: Patient with reassuring lab work, CBC shows improved leukocytosis from ec2 recent evaluation.. 15:18 ED course: On reassess patient marked improvement in pain. Will discharge home have the ec2 patient follow-up with ortho surgeon. Return precautions given.. 11/14 14:07 Order name: CBC with Diff; Complete Time: 14:43 ec2 11/14 14:07 Order name: BMP; Complete Time: 14:55 ec2 Administered Medications: 14:36 Drug: morphine IVP or IV 4 mg IVP once over 4 mins Route: IVP; Infused Over: 4 mins; db Site: left forearm; 15:19 Follow up: Response: No adverse reaction cm10 14:37 Drug: Ondansetron IVP 4 mg IVP once; over 2 minutes Route: IVP; Site: left forearm; db 15:19 Follow up: Response: No adverse reaction cm10 15:42 Drug: HYDROcodone-acetaminophen PO 5 mg-325 mg 1 tabs PO once Route: PO; cm10 15:43 Follow up: Response: Medication administered at discharge. cm10 Disposition Summary: 11/14/24 15:18 Discharge Ordered Notes: Location: Home ec2 Condition: Stable ec2 Diagnosis - Post-Operative Pain ec2 Followup: ec2 - With: Private Physician - When: - Reason: Re-evaluation by your physician Discharge Instructions: - Discharge Summary Sheet ec2 Forms: - Medication Reconciliation Form ec2 - Antibiotic Education ec2 - Prescription Opioid Use ec2 - Patient Portal Instructions ec2 - Leadership Thank You Letter ec2 Prescriptions: - acetaminophen-codeine 300-30 mg Oral tablet - take 1 tablet ORAL route 3 times per day as needed for pain; 15 tablet; ec2 Refills: 0, Product Selection Permitted Signatures: Dispatcher [employer] Olga Gracia RN RN Sabrina Juárez RN RN cm10 Joey Mera MD MD ec2 Corrections: (The following items were deleted from the chart) 14:13 ED course: Patient arrives today for evaluation of right knee pain with recent ec2 surgery. Examination yields MSK findings as above. Will obtain lab work and treat the patient's pain. Suspect pain from recent operative procedure.. ec2
--- NOTE | 2024-11-14 15:19 | ER ---
Nurse's Notes [facility] Name: Carlos Parada Age: 64 yrs Sex: Male : 1960 Arrival Date: 11/14/2024 Time: 13:52 Bed 18 Private MD: None, None Diagnosis: Post-Operative Pain Presentation: 11/14 13:51 Chief complaint: EMS states: RIGHT KNEE PAIN STATES RECENT DIAGNOSES OF SEPTIC db ARTHRITIC KNEE. COMING FROM HOME. TODAY PAIN 08/30. Coronavirus screen: Client denies travel out of the [place] in the last 14 days. At this time, the client does not indicate any symptoms associated with coronavirus-19. Ebola Screen: Patient negative for fever greater than or equal to 101.5 degrees Fahrenheit, and additional compatible Ebola Virus Disease symptoms Patient denies exposure to infectious person. Patient denies travel to an Ebola-affected area in the 21 days before illness onset. No symptoms or risks identified at this time. Initial Sepsis Screen: Does the patient meet any 2 criteria? No. Patient's initial sepsis screen is negative. Does the patient have a suspected source of infection? No. Patient's initial sepsis screen is negative. Risk Assessment: Do you want to hurt yourself or someone else? Patient reports no desire to harm self or others. Onset of symptoms. Care prior to arrival: Medication(s) given: Tylenol, 1000 mg, IV IV initiated. 20 GA, in the left forearm, Glucose check: 386. 13:51 Method Of Arrival: EMS: [facility] db 13:51 Acuity: STEVE 3 db Triage Assessment: 14:02 General: Appears in no apparent distress. comfortable, Behavior is calm, cooperative. db Pain: Complains of pain in right knee. Neuro: Level of Consciousness is awake, alert, obeys commands, Oriented to person, place, time, situation. Respiratory: Airway is patent Respiratory effort is even, unlabored, Respiratory pattern is regular, symmetrical. Musculoskeletal: Reports pain in right knee. Historical: - Allergies: 14:02 No Known Allergies; db - PMHx: 14:02 Hernia; db - PSHx: 14:02 R shoulder replacment; Repair of inguinal hernia; db - Immunization history:: Adult Immunizations unknown. - Infectious Disease History:: Denies. - Social history:: Smoking status: Patient denies any tobacco usage or history of. Screenin:04 [facility] ED Fall Risk Assessment (Adult) History of falling in the last 3 months, db including since admission No falls in past 3 months (0 pts) Confusion or Disorientation No (0 pts) Intoxicated or Sedated No (0 pts) Impaired Gait No (0 pts) Mobility Assist Device Used No (0 pt) Altered Elimination No (0 pt) Score/Fall Risk Level 0 - 2 = Low Risk Oriented to surroundings, Maintained a safe environment. Abuse screen: Denies threats or abuse. Denies injuries from another. Nutritional screening: No deficits noted. Tuberculosis screening: No symptoms or risk factors identified. Assessment: 14:04 Reassessment: Patient appears in no apparent distress at this time. Patient and/or db family updated on plan of care and expected duration. Pain level reassessed. Patient is alert, oriented x 3, equal unlabored respirations, skin warm/dry/pink. SEE TRIAGE FOR INITIAL ASSESSMENT. Vital Signs: 13:51 BP 130 / 86; Pulse 59; Resp 16; Temp 98.6; Pulse Ox 97% ; Weight 68.04 kg; Height 5 ft. db 4 in. ; Pain 10/10; 15:42 BP 124 / 67; Pulse 56; Resp 16; Pulse Ox 97% ; cm10 13:51 Body Mass Index 25.75 (68.04 kg, 162.56 cm) db 13:51 Pain Scale: Adult db ED Course: 13:54 Patient arrived in ED. ss 13:54 Joey Mera MD is Attending Physician. ec2 13:58 Olga Perez, RN is Primary Nurse. db 14:02 Triage completed. db 14:02 Arm band placed on Patient placed in an exam room. db 14:04 Patient has correct armband on for positive identification. Bed in low position. Call db light in reach. Side rails up X 1. Pulse ox on. NIBP on. Warm blanket given. Pillow given. 14:05 Maintain EMS IV. Dressing intact. Good blood return noted. Site clean \T\ dry. Gauge \T\ db site: 20 G LFA. 14:17 Initial lab(s) drawn, by me, sent to lab. db 14:18 None, None is Private Physician. as 15:43 Provided Education on: Follow-up instructions. cm10 15:43 No provider procedures requiring assistance completed. IV discontinued, intact, cm10 bleeding controlled, No redness/swelling at site. Pressure dressing applied. Administered Medications: 14:36 Drug: morphine IVP or IV 4 mg IVP once over 4 mins Route: IVP; Infused Over: 4 mins; db Site: left forearm; 15:19 Follow up: Response: No adverse reaction cm10 14:37 Drug: Ondansetron IVP 4 mg IVP once; over 2 minutes Route: IVP; Site: left forearm; db 15:19 Follow up: Response: No adverse reaction cm10 15:42 Drug: HYDROcodone-acetaminophen PO 5 mg-325 mg 1 tabs PO once Route: PO; cm10 15:43 Follow up: Response: Medication administered at discharge. cm10 Medication: 14:04 VIS not applicable for this client. db Outcome: 15:18 Discharge ordered by . ec2 15:43 Discharged to home via wheelchair, with family, cm10 15:43 Condition: good 15:43 Discharge instructions given to patient, Instructed on discharge instructions, follow up and referral plans. medication usage, Demonstrated understanding of instructions, follow-up care, medications, Prescriptions given X 1, 15:44 Patient left the ED. cm10 Signatures: Huong Pradhan Shelby, RN RN Olga Perez RN RN db Martinez, Clarissa, RN RN cm10 Joey Mera MD MD ec2
[2024-11-14] MEDS ORDERED: HYDROCODONE/APAP 5/325 MG TAB ONE (15:23)
[2024-11-14 15:48] VITALS: BP 124/67; O2SAT 97
== END 2024-11-14 15:44 | disposition home or self-care (01) ==
LOC: ER 13:52
DX: M25.561 Pain in right knee (principal); G89.18 Other acute postprocedural pain
CPT/HCPCS: 85025; 80048; 36415; 96375; 96374; 99284; J2405

== ENCOUNTER 2025-01-26 00:42 | Emergency (ER) | payer OTHER ==
--- OUTSIDE RECORDS SUMMARY | 2025-01-26 00:48 | XMS REPORT | Continuity of Care Document ---
Author Name Unknown Address [address] [place] [address] [facility] [place] Address [address] [place] [address] Care Team Providers Care Manager Hydraulic Name Role Phone Pcp, Pcp Primary Care Physician Unavailab Batool Jeffries Attending Clinician Unavailabl e Manish Styles Attending Clinician Unava ilable Jani Higuera Rahil Attending Clinician Unavail able Leanne Cazares DOyeheath Yeh Attending Clinician [phone] Duncan Klein MD Attending Clinician [phone] Jazmine Meadows MD Attending Clinician Chayito SHEA, Malena Grady Attending Clinician JAZMINE MEADOWS Attending Cl inician Unavailable Junior Attending Clinician Unavail able Manish Styles Attending Clinician [phone] KNOW, DOES_NOT Admitting Clinician Unavailable Jani Higuera Rahil Admitting Clinician Unavail able Duncan Klein MD Admitting Clinician [phone] DUNCAN KLEIN Admitting Clinician Unavailable Junior Admitting Clinician Unavail able Manish Styles Admitting Clinician Unavailable UNDEFINED Admitting Clinician Unavailable Payers Payer Name Policy Type Policy Number Effective Date Expirati on Date Source [facility] [id number] [facility] [id number] MEDICARE PART A Medicare [id number] 2024 00:00:00 Problems Condition Name Condition Details Condition Category Status Onset Date Resolution Date Last Treatment Date Treating Clinician Comments Source Hypokalemi a Hypokalemi a Disease Active 2023-11 00:00: 00 Isi Szymanski Hypomagnes emia Hypomagnes emia Disease Active 2023-11 00:00: 00 Memtoshia Patiño Epic Acute sepsis (CMS/HCC) Acute sepsis (CMS/HCC) Disease [...] itis Localized, Primary Osteoarthr itis Problem Active 621 00:00: 00 [facility] Diabetes mellitus Diabetes mellitus Disease Active Isi Szymanski Allergies, Adverse Reactions, Alerts Allergy Name Allergy Type Status Severity Reaction(s) Onset Date Inactive Date Treating Clinician Comments Source No Known Allergie s DA Active U 0 07-16 00:00: 00 [facility] No Known Allergie s DA Active U 0 07-16 00:00: 00 [facility] No Known Allergie s DA Active U 0 1-14 00:00: 00 [facility] No Known Allergie s DA Active U 0 1-14 00:00: 00 [facility] No Known Allergie s DA Active U 0 1-13 00:00: 00 [facility] No Known Allergie s DA Active U 0 1-13 00:00: 00 [facility] Social History Social Habit Start Date Stop Date Quantity Comments Source Gender identity 2024-11-05 11:14:38 Identifies as male gender (finding) [facility] Sexual orientation M emoalfonso Szymanski History of Social function 2024-11-05 00:00:00 2024-11-05 00:00:00 Jeannine Lerona [facility] Alcoholic beverage intake 2024-11-05 00:00:00 2024-11-05 00:00:00 .86 /d [facility] Tobacco use and exposure 2024-11-04 00:00:00 2024-11-04 00:00:00 Smokeless tobacco non-user [facility] Smoking Status Start Date Stop Date Source Current Some Day Smoker [facility] Never smoked tobacco [facility] Medications Ordered Medication Name Filled Medication Name Start Date Stop Date Current Medication? Ordering Clinician Indication Dosage Frequency Signature (SIG) Comments Components Source pantoprazol e (ProtoNix) 40 MG EC tablet pantoprazol e (ProtoNix) 40 MG EC tablet 2023-11 00:00: 00 11-10 23:59 :00 No 40mg QD Take 1 tablet by mouth 1 time each day. Do not crush, chew, or split. [facility] folic acid (Folvite) 1 MG tablet folic acid (Folvite) 1 MG tablet 2023-11 00:00: 00 11-11 23:59 :00 No 1mg QD Take 1 tablet by mouth 1 time each day for 1 dose. [facility] Blood Glucose Monitoring Suppl (Accu-Chek Kayla Plus) w/Device kit Blood Glucose Monitoring Suppl (Accu-Chek Kayla Plus) w/Device kit 2023-11 00:00: 00 Yes Test daily before all meals/snac ks and once before bedtime. [facility] Blood Glucose Calibration (Accu-Chek Kayla) solution Blood Glucose Calibration (Accu-Chek Kayla) solution 2023-11 00:00: 00 Yes Glucose control solution provides an easy way to ensure accurate blood glucose testing. [facility] Lancets Misc. (Accu-Chek Softclix Lancet Dev) kit Lancets Misc. (Accu-Chek Softclix Lancet Dev) kit 2023-11 00:00: 00 Yes Test daily before all meals/snac ks and once before bedtime. [facility] Alcohol Sheets (Alcoh-Wipe ) sheet Alcohol Sheets (Alcoh-Wipe ) sheet 2023-11 00:00: 00 Yes Test daily before all meals/snac ks and once before bedtime. [facility] Haroon [facility] acetone, urine, test strip acetone, urine, test strip 2023-11 00:00: 00 Yes 1{strip } 1 strip if needed for high blood sugar. Isi Szymanski insulin lispro (Humalog, Admelog) 100 UNIT/ML injection [...] needed (ACHS). Isi Szymanski HYDROcodone -acetaminop hen (Elgin) 10-325 MG tablet HYDROcodone -acetaminop hen (Elgin) 10-325 MG tablet 2023-11 00:00: 00 11-16 23:59 :00 No [id number] 1{tbl} Q6H Take 1 tablet by mouth every 6 hours if needed for moderate pain (4-6) for up to 7 days. Isi Szymanski metoclopram roger (Reglan) tablet 10 mg metoclopram roger (Reglan) tablet 10 mg 2023-11 14:00: 00 Yes 10mg [id number] 3D 10 mg, Oral, Every 8 hours [...] orally or via feeding tube >/= 14 Wallisian, may dissolve each 20 mEq tablet in 4 oz of water. Allow about 2 minutes for the tablets to disintegra te. Stir before giving to prepare slurry and administer . Please exclude patient's with feeding tube less than 14 Wallisian (Dobhoff, J-tube, etc) and pediatric and patients [...] pain (7-10), Starting on Tue11/06/24 at 1343 sIi Szymanski ceFAZolin (Ancef) 2 g in sterile [...] per ivp renal dosing protocol approved by [facility] Reconstitu te vial with 10 mL [...] On Tue11/05/24 at 1600, For 1 dose Isi Patiño Epic insulin lispro (HumaLOG, Admelog) injection 4-16 Units insulin lispro (HumaLOG, Admelog) injection 4-16 Units 2023-11 13:42: 22 Yes 4U [id number] 3D 4-16 Units, Subcutaneo us, 3 times [...] > 300 instructio ns: Contact Provider Isi Patiño Epic sodium bicarbonate 150 mEq in sterile water 1,150 mL infusion sodium bicarbonate 150 mEq in sterile water 1,150 mL infusion 2023-11 13:30: 00 2024- 12-17 12:16 :28 No 100mL/h 100 mL/hr, Intravenou [...] 0911, For 1 dose, Intraproce dure Isi Patiño Epic HYDROmorpho ne (Dilaudid) injection 0.5 mg HYDROmorpho [...] 0715, For 1 dose, Intraproce dure Isi Patiño Epic pantoprazol e (ProtoNix) 40 mg in sodium [...] 11/04/24 at 0900, For 5 days Isi Patiño Stephon folic acid (Folvite) tablet 1 mg folic acid (Folvite) tablet 1 mg 2023-11 09:00: 00 11-05 16:52 :20 No 1mg QD 1 mg, Oral, Daily, First dose on 11/04/24 at 0900, For 5 days Isi Patiño Stephon multivitami n (Theragran- M) tablet 1 tablet multivitami n (Theragran- M) tablet 1 tablet 2023-11 09:00: 00 11-05 16:52 :20 No 1{tbl} QD 1 tablet, Oral, Daily, First dose on 11/04/24 at 0900, For 5 doses Isi Patiño Stephon insulin lispro (Humalog, Admelog) injection 2-8 Units insulin lispro (Humalog, Admelog) injection 2-8 Units 2023-11 08:12: 42 11-05 13:42 :37 No 2U Q6H 2-8 Units, Subcutaneo us, Every 6 hours PRN, high blood sugar, Starting on 11/04/24 at 0812, For BG < 70, follow [...] unable to swallow or npo and notify . Isi Szymanski LORazepam (Ativan) injection 1 mg [...] hours PRN, cough, Starting on Tue11/04/24 at 07 Isi Szymanski hydrALAZINE injection 10 mg hydrALAZINE injection 10 mg 2023-11 07:09: 59 Yes 10mg Q6H 10 mg, Intravenou s, Every 6 hours PRN, high blood pressure, SBP>170 mm, Starting on Tue11/04/24 at 708 Isi Szymanski ondansetron (Zofran) injection 4 mg ondansetron (Zofran) injection 4 mg 2023-11 07:09: 59 Yes 4mg Q8H 4 mg, Intravenou s, Every 8 hours PRN, nausea, vomiting, Starting on Tue11/04/24 at 708 Isi Szymanski HYDROcodone -acetaminop hen (Elgin) 10-325 MG per tablet 1 tablet HYDROcodone -acetaminop hen (Elgin) 10-325 MG per tablet 1 tablet 2023-11 07:09: 59 Yes 1{tbl} Q6H 1 tablet, Oral, Every 6 hours PRN, moderate pain (4-6), Starting on Tue11/04/24 at 708 Isi Szymanski sennosides (Senokot) tablet 8.6 mg sennosides (Senokot) tablet 8.6 mg 2023-11 07:09: 59 Yes 1{tbl} Q.5D 8.6 mg (1 tablet), Oral, 2 times daily PRN, constipati on, Starting on Tue11/04/24 at 708 Isi Szymanski morphine PF injection 2 mg morphine PF injection 2 mg 2023-11 07:09: 59 11-06 13:44 :05 No 2mg Q4H 2 mg, Intravenou s, Every 4 hours PRN, severe pain (7-10), Starting on Tue11/04/24 at 0709 Isi katia Szymanski acetaminoph en (Tylenol) tablet 650 mg acetaminoph en (Tylenol) tablet 650 mg 2023-11 07:09: 58 Yes 650mg Q6H 650 mg, Oral, Every 6 hours PRN, mild pain (1-3), fever, Starting on 11/04/24 at 0709 [facility] Haroon [facility] sodium chloride (NS) 0.9 % flush 10 mL sodium chloride (NS) 0.9 % flush 10 mL 2023-11 07:08: 33 Yes 10mL 10 mL, Intravenou s, As needed, line care, Line Flush, Starting on 11/04/24 at 0708 [facility] Haroon [facility] cyclobenzap rine 10 mg tablet 1 PO Q8H PRN cyclobenzap rine 10 mg tablet 1 PO Q8H PRN 1-0 3-30 00:00: 00 No cyclobenza eric 10 [...] mg tablet 1 PO Q8H PRN 1-0 3-30 00:00: 00 No cyclobenza eric 10 [...] mg tablet 1 PO Q8H PRN 1-0 3-30 00:00: 00 No cyclobenza eric 10 mg tablet 1 PO Q8H PRN [facility] hydrocodone 10 mg-acetamin ophen 325 mg tablet 1 PO Q6H PRN PAIN hydrocodone 10 mg-acetamin ophen 325 mg tablet 1 PO Q6H PRN PAIN 02-17 00:00: 00 No hydrocodon e 10 mg-acetami nophen 325 mg tablet 1 PO Q6H PRN PAIN [facility] Zofran 4 mg tablet 1 TAB PO Q4H PRN NAUSEA Zofran 4 mg tablet 1 TAB PO Q4H PRN NAUSEA 02-17 00:00: 00 No Zofran 4 mg tablet 1 TAB PO Q4H PRN NAUSEA [facility] metformin [...] sharlene Heart rate 2024-11-09 12:19:32 67 /[facility] Res[facility] rate 2024-11-09 12:19:32 18 /min [facility] Oxygen saturation in Arterial blood by Pulse oximetry 2024-11-09 12:19:32 92 /min [facility] Body temperature 2024-11-09 12:19:24 37.44 [facility] Systolic blood pressure 2024-11-09 12:19:14 107 mm[Hg] [facility] Diastolic blood pressure 2024-11-09 12:19:14 62 mm[Hg] [facility] Body height 2024-11-04 11:40:00 162.6 cm [facility] Body weight 2024-11-04 11:40:00 68.27 kg [facility] BMI 2024-11-04 11:40:00 25.82 kg/m2 [facility] Heart rate 2024-11-09 12:19:32 67 /min [facility] Respiratory rate 2024-11-09 12:19:32 18 /min [facility] Oxygen saturation in Arterial blood by Pulse oximetry 2024-11-09 12:19:32 92 /min [facility] Body temperature 2024-11-09 12:19:24 37.44 [facility] Systolic blood pressure 2024-11-09 12:19:14 107 mm[Hg] [facility] Diastolic blood pressure 2024-11-09 12:19:14 62 mm[Hg] [facility] Body height 2024-11-04 11:40:00 162.6 cm [facility] Body weight 2024-11-04 11:40:00 68.27 kg [facility] BMI 2024-11-04 11:40:00 25.82 kg/m2 [facility] Height 2022-12-09 00:00:00 64 [in_i] Azale a [...] Date / Time Performed Performing Clinician Source POCT Glucose 2024-12-05 00:00:00 [facility] POC GLUCOSE UNSOLICITED RESULTS 2024-11-09 12:17:00 [facility] BAS[facility] METABOLIC PANEL 2024-11-09 10:36:00 [facility] MAGNESIUM LEVEL 2024-11-09 10:36:00 Jazmine Meadows [facility] POC GLUCOSE UNSOLICITED RESULTS 2024-11-09 06:44:00 [facility] UNSOLICITED RESULTS 2024-11-08 15:56:00 [facility] C-REACTIVE PROTEIN 2024-11-08 14:39:00 Frankie Ordoñez [facility] SEDIMENTATION RATE 2024-11-08 14:39:00 Frankie Ordoñez [facility] POC GLUCOSE UNSOLICITED RESULTS 2024-11-08 12:10:00 [facility] GLUCOSE UNSOLICITED RESULTS 2024-11-08 11:41:00 Malena Stratton [facility] POC GLUCOSE UNSOLICITED RESULTS 2024-11-08 06:41:00 [facility] COMPLETE BLOOD COUNT 2024-11-08 06:04:00 [facility] AUTOMATED DIFFERENTIAL 2024-11-08 06:04:00 Malena Sosalamonte [facility] BASIC METABOLIC PANEL 2024-11-08 06:04:00 Malena Stone [facility] COMPLETE BLOOD COUNT W/DIFF AND PLATELET 2024-11-08 06:04:00 [facility] GLUCOSE UNSOLICITED RESULTS 2024-11-07 17:14:00 [facility]NSOLICITED RESULTS 2024-11-07 11:50:00 [facility] GLUCOSE UNSOLICITED RESULTS 2024-11-07 06:42:00 [facility] COMPLETE [facility]LO[facility] 2024-11-07 05:22:00 Chayito , [facility] AUTOMATED DIFFERENTIAL 2024-11-07 05:22:00 Mared ia, [facility] COMPREHENSIVE METABOLIC PANEL 2024-11-07 05:22:00 Chayito, [facility] MAGNESIUM LEVEL 2024-11-07 05:22:00 Chayito, Arsenio im [facility] PHOSPHORUS LEVEL 2024-11-07 05:22:00 Chayito, Sa montero [facility] C-REACTIVE PROTEIN 2024-11-07 05:22:00 Chayito, [facility] COMPLETE BLOOD COUNT W/DIFF AND PLATELET 2024-11-07 05:22:00 Chayito, [facility] POC GLUCOSE UNSOLICITED RESULTS 2024-11-06 16:52:00 Chayito, [facility] POC GLUCOSE UNSOLICITED RESULTS 2024-11-06 12:33:00 Chayito, [facility] POC GLUCOSE UNSOLICITED RESULTS 2024-11-06 11:55:00 Chayito, [facility] VANCOMYCIN LEVEL AUC 2024-11-06 07:48:00 Latoya Duncan [facility] COMPLETE BLOOD COUNT 2024-11-06 07:48:00 Jazmine Alicia [facility] AUTOMATED DIFFERENTIAL 2024-11-06 07:48:00 [facility] BASIC METABOLIC PANEL 2024-11-06 07:48:00 [facility] MAGNESIUM LEVEL 2024-11-06 07:48:00 [facility] Meadows [facility] PHOSPHORUS LEVEL 2024-11-06 07:48:00 [facility] COMPLETE BLOOD COUNT W/DIFF AND PLATELET 2024-11-06 07:48:00 Jazmine Meadows Dawson [facility] POC GLUCOSE UNSOLICITED RESULTS 2024-11-06 06:35:00 Jazmine Meadows Dawson [facility] POC GLUCOSE UNSOLICITED RESULTS 2024-11-05 23:39:00 Jazmine Meadows Dawson [facility] BASIC METABOLIC PANEL 2024-11-05 19:57:00 Jazmine Garcia Dawson [facility] POC GLUCOSE UNSOLICITED RESULTS 2024-11-05 17:32:00 Jazmine Meadows Dawson [facility] POC GLUCOSE UNSOLICITED RESULTS 2024-11-05 15:22:00 Jazmine Meadows Elsayed [facility] LACTIC ACID WITH 2 HOUR REFLEX 2024-11-05 13:47:00 Jazmine Meadows Dawson [facility] BETA HYDROXYBUTYRATE QUANTITATIVE 2024-11-05 13:47:00 Jazmine Meadows Dawson [facility] POC GLUCOSE UNSOLICITED RESULTS 2024-11-05 13:33:00 Jazmine Meadows Dawson [facility] POC GLUCOSE UNSOLICITED RESULTS 2024-11-05 12:04:00 Jazmine Meadows Dawson [facility] POC GLUCOSE UNSOLICITED RESULTS 2024-11-05 11:27:00 Jazmine Meadows Dawson [facility] BLOOD GAS, ARTERIAL 2024-11-05 10:55:00 Jazmine Kelley Dawson [facility] POC GLUCOSE UNSOLICITED RESULTS 2024-11-05 10:08:00 Jazmine Meadows Dawson [facility] POC GLUCOSE UNSOLICITED RESULTS 2024-11-05 09:04:00 Jazmine Meadows Dawson [facility] ANAEROBIC CULTURE 2024-11-05 08:40:00 Saurabh Chavarria [facility] WOUND CULTURE W/GRAM STAIN, SURGICAL 2024-11-05 08:40:00 Saurabh Chavarria [facility] FUNGAL CULTURE W/SMEAR 2024-11-05 08:40:00 Saurabh Gauthier [facility] IRRIGATION AND DEBRIDEMENT, LOWER EXTREMITY 2024-11-05 07:38:00 Saurabh Chavarria [facility] POC GLUCOSE UNSOLICITED RESULTS 2024-11-05 07:35:00 Jazmine Meadows [facility] POC GLUCOSE UNSOLICITED RESULTS 2024-11-05 07:05:00 Duncan Klein [facility] VANCOMYCIN LEVEL AUC 2024-11-05 04:26:00 Duncan Klein [facility] COMPLETE BLOOD COUNT 2024-11-05 04:26:00 Duncan Klein [facility] AUTOMATED DIFFERENTIAL 2024-11-05 04:26:00 César Klein [facility] BASIC METABOLIC PANEL 2024-11-05 04:26:00 Lady Klein [facility] COMPLETE BLOOD COUNT W/DIFF AND PLATELET 2024-11-05 04:26:00 Duncan Klein [facility] GLUCOSE LEVEL BODY FLUID 2024-11-04 20:38:00 Saurabh Jo [facility] CELL COUNT W/ DIFF BODY FLUID 2024-11-04 20:38:00 Saurabh Chavarria [facility] BODY FLUID CULTURE W/GRAM STAIN 2024-11-04 20:38:00 Saurabh Chavarria [facility] CRYSTAL EXAM BODY FLUID 2024-11-04 20:38:00 Saurabh Durant [facility] MRSA BY PCR 2024-11-04 18:55:00 Duncan Klein [facility] XR KNEE 3 VIEWS RIGHT 2024-11-04 17:42:58 Saurabh Rowland [facility] POC GLUCOSE UNSOLICITED RESULTS 2024-11-04 16:27:00 Duncan Klein [facility] VANCOMYCIN LEVEL AUC 2024-11-04 12:22:00 Latoya Duncan [facility] POC GLUCOSE UNSOLICITED RESULTS 2024-11-04 11:29:00 Latoya Duncan [facility] BLOOD CULTURE 2024-11-04 10:39:00 Latoya Duncan Jonesshashi al [facility] POC GLUCOSE UNSOLICITED RESULTS 2024-11-04 08:24:00 Latoya Duncan [facility] COMPLETE BLOOD COUNT 2024-11-04 07:25:00 Latoya Duncan [facility] AUTOMATED DIFFERENTIAL 2024-11-04 07:25:00 Doug Kleinkeaton fernandez [facility] COMPREHENSIVE METABOLIC PANEL 2024-11-04 07:25:00 Latoya Duncan [facility] HEMOGLOBIN A1C 2024-11-04 07:25:00 Latoya Duncan Jonesor ial [facility] MAGNESIUM LEVEL 2024-11-04 07:25:00 Latoya, Duncan Joneso rial [facility] PHOSPHORUS LEVEL 2024-11-04 07:25:00 Latoya Duncan Jones orial [facility] COMPLETE BLOOD COUNT W/DIFF AND PLATELET 2024-11-04 07:25:00 Latoya Duncan [facility] PROTIME-INR 2024-11-04 07:25:00 [facility] 2024-11-03 00:05:00 [facility] EXTERNAL STUDY 2024-11-03 00:00:00 Amrik Chavarriatreva [facility] XR EXTERNAL STUDY 2024-11-03 00:00:00 [facility] US EXTERNAL STUDY 2024-11-01 00:00:00 Amrik Chavarriatreva [facility] XR, shoulder, 2 or more view 2022-12-09 00:00:00 [facility] XR, shoulder, 2 or more view 2022-09-02 00:00:00 [facility] XR, shoulder, 2 or more view 2022-07-08 00:00:00 [facility] XR, shoulder, 2 or more view 2022-06-09 00:00:00 [facility] Blood culture, peripheral #2 [facility] Epic Wound culture [facility] Epic Anaerobic Culture [facility] Epic Fungal Culture w/Smear Memor [facility] Encounters Start Date/Time End Date/Time Encounter Type Admission Type Attending Clinicians Care Facility Care Department Encounter ID Source 2024-12-28 00:58:35 Outpatient Batool Dior [facility] [id number] [place] [facility] 2024-12-25 04:15:00 Outpatient Batool Dior [facility] [id number] [place] [facility] 2021-02-10 08:08:16 Inpatient Manish Merchant [facility] [id number] [facility] 2020-12-04 10:30:00 Inpatient Manish Merchant [facility] RADI [id number] [facility] 2024-11-29 18:40:00 2024-12-06 11:00:00 Inpatient 3 Jani Higuera ENCPL TRES [id number] [facility] 2024-11-04 06:26:00 2024-11-09 14:28:00 Hospital Encounter Debora, Niesha Ambrosio, Jazmine Angel, Malena Grady [facility] [id number] [facility] 2024-11-04 06:26:00 2024-11-09 14:28:00 Inpatient Elective JAZMINE MEADOWS General Medicine [id number] [facility] 2024-11-04 19:55:15 2024-11-03 23:59:00 Outpatient MHIEEPIC MHIEEPIC [id number] [facility] 2024-11-04 19:50:46 2024-11-03 23:59:00 Outpatient MHIEEPIC MHIEEPIC [id number] [facility] 2024-11-04 19:48:10 2024-11-03 23:59:00 Outpatient MHIEEPIC MHIEEPIC [id number] Isi Patiño [facility] 2024-11-04 19:52:31 2024-11-01 23:59:00 Outpatient MHIEEPIC MHIEEPIC [id number] Isi Patiño [facility] 2023-06-02 00:00:00 2023-06-02 00:00:00 Outpatient FOG_Brown_B Jv AOSM AOSM [id number] [facility] 2023-06-02 00:00:00 2023-06-02 00:00:00 Outpatient FOG_Brown_Chantelle Carias AOSM AOSM [id number] [facility] 2023-02-21 00:00:00 2023-02-21 00:00:00 Outpatient FOG_Brown_Chantelle Carias AOSM AOSM [id number] [facility] 2023-02-21 00:00:00 2023-02-21 00:00:00 Outpatient FOG_Brown_B Jv AOSM AOSM [id number] [facility] 2023-02-21 00:00:00 2023-02-21 00:00:00 Outpatient FOG_Gela Carias AOSM AOSM [id number] [facility] 2022-12-09 00:00:00 2022-12-09 00:00:00 Manish Styles MD: [address] [place] [id number] , Ph. [phone] [facility] [place] [facility] - FOG_Ofc [facility] [id number] [facility] 2022-09-02 00:00:00 2022-09-02 00:00:00 Outpatient FOG_Brown_Chantelle Carias AOSM AOSM [id number] [facility] 2022-09-02 00:00:00 2022-09-02 00:00:00 Outpatient FOG_Brown_Chantelle Carias AOSM AO [id number] [facility] 2022-09-02 00:00:00 2022-09-02 00:00:00 Outpatient FOG_Gela Carias AOSM AO [id number] [facility] 2022-09-02 00:00:00 2022-09-02 00:00:00 Manish Styles MD: [id number] [place] [address] , Ph. [phone] [facility] [place] - [facility] - FOG_Ofc [facility] [id number] [facility] 2022-09-01 00:00:00 2022-09-01 00:00:00 Outpatient FOG_Gela Carias AOSM AO [id number] [facility] 2022-07-08 00:00:00 2022-07-08 00:00:00 Outpatient FOG_Gela Carias AOSM AO [id number] [facility] 2022-07-08 00:00:00 2022-07-08 00:00:00 Outpatient Manish Styles AOSM AOSM [id number] 2022-07-08 00:00:00 2022-07-08 00:00:00 Manish Styles MD: [address] [place] [address] , Ph. [phone] [place] - [facility] [place] - FOG_Ofc [facility] [id number] [facility] 2022-06-09 09:48:00 2022-06-09 09:48:00 Outpatient FOG_Gela Carias AOSM AO [id number] [facility] 2022-06-09 00:00:00 2022-06-09 00:00:00 Outpatient Manish Styles AOSM AOSM [id number] 2022-06-09 00:00:00 2022-06-09 00:00:00 Manish Styles MD: [address] [place] [phone] , Ph. [phone] [place] - FOG_Ofc [facility] [place] [id number] [facility] 2022-05-27 09:51:00 2022-05-27 09:51:00 Outpatient FOG_Narendra_B Jv AOSM AOSM [id number] [facility] 2022-05-25 17:05:00 2022-05-26 15:17:00 Inpatient Manish Merchant HCATO SURG [id number] [facility] 2022-05-25 17:05:00 2022-05-26 15:17:00 Inpatient Manish Merchant HCATO SURG [id number] [facility] 2022-04-21 10:32:00 2022-04-21 10:32:00 Outpatient Cheo Carias AOSM AO [id number] [facility] 2022-04-21 00:00:00 2022-04-21 00:00:00 Outpatient Manish Styles AOSM AO [id number] 2022-04-21 00:00:00 2022-04-21 00:00:00 Manish Styles MD: [address] [place] [phone] , Ph. [phone] [place] - FOG_Ofc [facility] [place] [id number] [facility] 2021-09-15 00:00:00 2021-09-15 23:00:00 Inpatient ALEXANDR NarendraManish HCATO LABO [id number] [facility] 2021-09-15 17:17:00 2021-09-15 17:17:00 Outpatient Manish Styles HCACL LABO [id number] [facility] 2021-09-15 13:45:00 2021-09-15 13:45:00 Outpatient Manish Styles HCAWU REFE [id number] [facility] 2021-07-16 09:58:00 2021-07-16 09:58:00 Outpatient Manish Merchant HCATO RADI [id number] [facility] 2021-02-10 12:34:20 2021-02-10 12:34:20 Outpatient Manish Styles HCACL HCACL [id number] [facility] Results Test Description Test Time Test Comments Results Result Co mments Source [facility] [id number] 15:33:00* Test Item Value Reference Range Interpretation Comme [facility] GLUCOSE (test code = 58898709) 173 mg/dL 65-99 H Fasting referenc e interval For someone without known diabetes, a glucosevalue >125 mg/dL indicates that they may havediabetes and this should be confirmed with afollow-up test. UREA NITROGEN (BUN) (test code = 22480524) 17 mg/dL 7-25 N CREATININE (test code = 60213156) 0.65 mg/dL 0.70-1.35 L EGFR (test code = 97514445) 105 mL/min/1.73m2 >=60 N BUN/CREATININE RATIO (test code = 37243650) 26 (calc) 6-22 H SODIUM (test code = 73242008) 135 mmol/L 135-146 N POTASSIUM (test code = 01661557) 4.5 mmol/L 3.5-5.3 N CHLORIDE (test code = 02948652) 96 mmol/L 98-110 L CARBON DIOXIDE (test code = 35406882) 27 mmol/L 20-32 N CALCIUM (test code = 86057631) 8.8 mg/dL 8.6-10.3 N [facility] (DIFF/PLT)2024-12-03 15:33:00* Test Item Value Reference Range Interpretation Comme nts WHITE BLOOD CELL COUNT (test code = 40832305) 8.1 Thousand/uL 3.8-10.8 N RED BLOOD CELL COUNT (test code = 53600100) 3.74 Million/uL 4.20-5.80 L HEMOGLOBIN (test code = 40397651) 10.4 g/dL 13.2-17.1 L HEMATOCRIT (test code = 82165789) 32.9 % 38.5-50.0 L MCV (test code = 13825379) 88.0 fL 80.0-100.0 N MCH (test code = 29740246) 27.8 pg 27.0-33.0 N MCHC (test code = 92679892) 31.6 g/dL 32.0-36.0 L For adults, a sl ight decrease in the calculated MCHCvalue (in the range of 30 to 32 g/dL) is most likelynot clinically significant; however, it should beinterpreted with caution in correlation with otherred cell parameters and the patient's clinicalcondition. RDW (test code = 99705303) 11.9 % 11.0-15.0 N PLATELET COUNT (test code = 40798757) 576 Thousand/uL 140-400 H MPV (test code = 60577429) 9.5 fL 7.5-12.5 N ABSOLUTE NEUTROPHILS (test code = 96724975) 5176 cells/uL 9142-0962 N ABSOLUTE LYMPHOCYTES (test code = 90072673) 1555 cells/uL 850-3900 N ABSOLUTE MONOCYTES (test code = 40432611) 964 cells/uL 200-950 H ABSOLUTE EOSINOPHILS (test code = 21049553) 348 cells/uL 15-500 N ABSOLUTE BASOPHILS (test code = 71878643) 57 cells/uL 0-200 N NEUTROPHILS (test code = 83809384) 63.9 % N LYMPHOCYTES (test code = 57756788) 19.2 % N MONOCYTES (test code = 07380672) 11.9 % N EOSINOPHILS (test code = 97290934) 4.3 % N BASOPHILS (test code = 90242095) 0.7 % N [facility] H[facility]ITALIR[facility],TIBC,PAUL [id number] 13:45:00* Test Item Value Reference Range Interpretation Comme nts IRON, TOTAL (test code = 06534687) 22 mcg/dL 50-180 L IRON BINDING CAPACITY (test code = 74725957) 212 mcg/dL (calc) 250-425 L % SATURATION (test code = 94478342) 10 % (calc) 20-48 L [facility] [id number] 13:45:00* Test Item Value Reference Range Interpretation Comme [facility] GLUCOSE (test code = 66164193) 173 mg/dL 65-99 H Fasting referenc e interval For someone without known diabetes, a glucosevalue >125 mg/dL indicates that they may havediabetes and this should be confirmed with afollow-up test. UREA NITROGEN (BUN) (test code = 88163272) 17 mg/dL 7-25 N CREATININE (test code = 85821363) 0.65 mg/dL 0.70-1.35 L EGFR (test code = 32454181) 105 mL/min/1.73m2 >=60 N BUN/CREATININE RATIO (test code = 01046899) 26 (calc) 6-22 H SODIUM (test code = 42929087) 135 mmol/L 135-146 N POTASSIUM (test code = 49206983) 4.5 mmol/L 3.5-5.3 N CHLORIDE (test code = 35413991) 96 mmol/L 98-110 L CARBON DIOXIDE (test code = 79648020) 27 mmol/L 20-32 N CALCIUM (test code = 70884995) 8.8 mg/dL 8.6-10.3 N [facility] (DIFF/PLT)2024-12-03 13:45:00* Test Item Value Reference Range Interpretation Comme [facility] WHITE BLOOD CELL COUNT (test code = 87414744) 8.1 Thousand/uL 3.8-10.8 N RED BLOOD CELL COUNT (test code = 44839439) 3.74 Million/uL 4.20-5.80 L HEMOGLOBIN (test code = 12229580) 10.4 g/dL 13.2-17.1 L HEMATOCRIT (test code = 90595354) 32.9 % 38.5-50.0 L MCV (test code = 70390413) 88.0 fL 80.0-100.0 N MCH (test code = 85951732) 27.8 pg 27.0-33.0 N MCHC (test code = 22327659) 31.6 g/dL 32.0-36.0 L For adults, a sl ight decrease in the calculated MCHCvalue (in the range of 30 to 32 g/dL) is most likelynot clinically significant; however, it should beinterpreted with caution in correlation with otherred cell parameters and the patient's clinicalcondition. RDW (test code = 24126888) 11.9 % 11.0-15.0 N PLATELET COUNT (test code = 87768106) 576 Thousand/uL 140-400 H MPV (test code = 87285449) 9.5 fL 7.5-12.5 N ABSOLUTE NEUTROPHILS (test code = 07859550) 5176 cells/uL 0999-7347 N ABSOLUTE LYMPHOCYTES (test code = 30319866) 1555 cells/uL 850-3900 N ABSOLUTE MONOCYTES (test code = 98738313) 964 cells/uL 200-950 H ABSOLUTE EOSINOPHILS (test code = 99458273) 348 cells/uL 15-500 N ABSOLUTE BASOPHILS (test code = 01381395) 57 cells/uL 0-200 N NEUTROPHILS (test code = 19651988) 63.9 % N LYMPHOCYTES (test code = 52948776) 19.2 % N MONOCYTES (test code = 35719423) 11.9 % N EOSINOPHILS (test code = 45209165) 4.3 % N BASOPHILS (test code = 79756219) 0.7 % N [facility] [id number] 12:01:00* Test Item Value Reference Range Interpretation Comme nts GLUCOSE (test code = 26132754) 215 mg/dL 65-99 H Fasting referenc e interval For someone without known diabetes, a glucosevalue >125 mg/dL indicates that they may havediabetes and this should be confirmed with afollow-up test. UREA NITROGEN (BUN) (test code = 04158215) 14 mg/dL 7-25 N CREATININE (test code = 76642478) 0.66 mg/dL 0.70-1.35 L EGFR (test code = 97304762) 104 mL/min/1.73m2 >=60 N BUN/CREATININE RATIO (test code = 93918126) 21 (calc) 6-22 N SODIUM (test code = 04318908) 133 mmol/L 135-146 L POTASSIUM (test code = 30344914) 5.0 mmol/L 3.5-5.3 N CHLORIDE (test code = 04702167) 96 mmol/L 98-110 L CARBON DIOXIDE (test code = 09254017) 29 mmol/L 20-32 N CALCIUM (test code = 24056123) 8.6 mg/dL 8.6-10.3 N PROTEIN, TOTAL (test code = 66251409) 5.9 g/dL 6.1-8.1 L ALBUMIN (test code = 58463323) 3.3 g/dL 3.6-5.1 L GLOBULIN (test code = 98738969) 2.6 g/dL (calc) 1.9-3.7 N ALBUMIN/GLOBULIN RATIO (test code = 45599812) 1.3 (calc) 1.0-2.5 N BILIRUBIN, TOTAL (test code = 23477255) 0.3 mg/dL 0.2-1.2 N ALKALINE PHOSPHATASE (test code = 01909475) 81 U/L 35-144 N AST (test code = 52353459) 8 U/L 10-35 L ALT (test code = 98338813) 11 U/L 9-46 N [facility] WITH [id number] 12:01:00* Test Item Value Reference Range Interpretation Comme nts INR (test code = 14264285) 1.1 N Reference Range 0.9-1.1Moderate-intensity Warfarin Therapy 2.0-3.0Higher-intensity Warfarin Therapy 3.0-4.0 PT (test code = 94093991) 11.7 sec 9.0-11.5 H For additional information, please refer [email or web address].[email or web address]/faq/[email or web address] (This link is being provided for informational/educational purposes only.) [facility]2024-11-30 12:01:00* Test Item Value Reference Range Interpretation Comme nts WHITE BLOOD CELL COUNT (test code = 73128493) 8.7 Thousand/uL 3.8-10.8 N RED BLOOD CELL COUNT (test code = 89221308) 3.42 Million/uL 4.20-5.80 L HEMOGLOBIN (test code = 94099384) 9.5 g/dL 13.2-17.1 L HEMATOCRIT (test code = 50548339) 30.0 % 38.5-50.0 L MCV (test code = 05446459) 87.7 fL 80.0-100.0 N MCH (test code = 89990810) 27.8 pg 27.0-33.0 N MCHC (test code = 09240389) 31.7 g/dL 32.0-36.0 L For adults, a sl ight decrease in the calculated MCHCvalue (in the range of 30 to 32 g/dL) is most likelynot clinically significant; however, it should beinterpreted with caution in correlation with otherred cell parameters and the patient's clinicalcondition. RDW (test code = 07608736) 11.8 % 11.0-15.0 N PLATELET COUNT (test code = 88523609) 532 Thousand/uL 140-400 H MPV (test code = 39117794) 9.4 fL 7.5-12.5 N ABSOLUTE NEUTROPHILS (test code = 73297124) 5742 cells/uL 1744-0293 N ABSOLUTE LYMPHOCYTES (test code = 41180097) 1531 cells/uL 850-3900 N ABSOLUTE MONOCYTES (test code = 26066031) 887 cells/uL 200-950 N ABSOLUTE EOSINOPHILS (test code = 30277514) 470 cells/uL 15-500 N ABSOLUTE BASOPHILS (test code = 55504791) 70 cells/uL 0-200 N NEUTROPHILS (test code = 07123585) 66 % N LYMPHOCYTES (test code = 27228164) 17.6 % N MONOCYTES (test code = 67718332) 10.2 % N EOSINOPHILS (test code = 85331406) 5.4 % N BASOPHILS (test code = 57116632) 0.8 % N [facility] Wpsucgy4877-19-64 12:31:42* Test Item Value Reference Range Interpretation Comme [facility] POC Glu (test code = 4681987912) 324 mg/dL 70-99 H POC Glu Comment 1 (test code = 1884113030) Notified RN/MD POC Performing Location (gio t code = 8285464206) 2A S/Or/Ne Lab Interpretation (test cod e = 50568-7) Abnormal [facility] Nvbaugg8055-51-17 07:00:20* Test Item Value Reference Range Interpretation Comme nts POC Glu (test code = 2300704363) 165 mg/dL 70-99 H POC Glu Comment 1 (test code = 1583951239) Notified RN/MD POC Performing Location (gio t code = 1628538076) 2A S/Or/Ne Lab Interpretation (test cod e = 67200-9) Abnormal [facility] Gbkiigc5556-09-64 16:08:18* Test Item Value Reference Range Interpretation Comme nts POC Glu (test code = 7834575626) 242 mg/dL 70-99 H POC Performing Location (gio t code = 6886218068) 2A S/Or/Ne Lab Interpretation (test cod e = 13092-0) Abnormal [facility] Omrikuq4223-10-68 12:25:05* Test Item Value Reference Range Interpretation Comme nts POC Glu (test code = 6062344058) 290 mg/dL 70-99 H POC Performing Location (gio t code = 5983645107) 2A S/Or/Ne Lab Interpretation (test cod e = 88475-9) Abnormal [facility] Omdvohh5742-63-65 11:55:49* Test Item Value Reference Range Interpretation Comme nts POC Glu (test code = 0788202109) 321 mg/dL 70-99 H POC Performing Location (gio t code = 1228045102) 2A S/Or/Ne Lab Interpretation (test cod e = 02679-9) Abnormal [facility] Ghwckbg5193-31-93 06:51:05* Test Item Value Reference Range Interpretation Comme nts POC Glu (test code = 8008026820) 143 mg/dL 70-99 H POC Glu Comment 1 (test code = 7850831130) Notified RN/MD POC Performing Location (gio t code = 0300121729) 2A S/Or/Ne Lab Interpretation (test cod e = 80358-6) Abnormal [facility] Oycnvoo7798-29-40 17:33:46* Test Item Value Reference Range Interpretation Comme nts POC Glu (test code = 8101996456) 212 mg/dL 70-99 H POC Performing Location (gio t code = 6732590334) 2A S/Or/Ne Lab Interpretation (test cod e = 25644-0) Abnormal [facility] Bvaxlyt0934-42-71 13:00:20* Test Item Value Reference Range Interpretation Comme nts POC Glu (test code = 4844635426) 286 mg/dL 70-99 H POC Performing Location (gio t code = 1762901630) 2A S/Or/Ne Lab Interpretation (test cod e = 79747-1) Abnormal [facility] Izrcovo0015-14-87 07:02:35* Test Item Value Reference Range Interpretation Comme nts POC Glu (test code = 7976439922) 247 mg/dL 70-99 H POC Glu Comment 1 (test code = 2422774537) Notified RN/MD POC Performing Location (gio t code = 1366313881) 2A S/Or/Ne Lab Interpretation (test cod e = 04952-5) Abnormal [facility] Iwdrlyk5557-58-11 16:56:13* Test Item Value Reference Range Interpretation Comme nts POC Glu (test code = 2438675045) 248 mg/dL 70-99 H POC Glu Comment 1 (test code = 4137876138) Notified RN/MD POC Performing Location (gio t code = 3153607399) 2A S/Or/Ne Lab Interpretation (test cod e = 10978-6) Abnormal [facility] Ugbspkm5954-10-82 12:42:15* Test Item Value Reference Range Interpretation Comme nts POC Glu (test code = 4685439830) 284 mg/dL 70-99 H POC Glu Comment 1 (test code = 9042608789) Notified RN/MD POC Performing Location (gio t code = 4592798240) 2A S/Or/Ne Lab Interpretation (test cod e = 39733-3) Abnormal [facility] Mcdcyoo7938-03-88 12:08:25* Test Item Value Reference Range Interpretation Comme nts POC Glu (test code = 0508424793) 256 mg/dL 70-99 H POC Glu Comment 1 (test code = 7713555224) Notified RN/MD POC Performing Location (gio t code = 4450287239) 2A S/Or/Ne Lab Interpretation (test cod e = 31704-1) Abnormal [facility] Sthwbpt1333-72-82 06:54:02* Test Item Value Reference Range Interpretation Comme nts POC Glu (test code = 9304359981) 248 mg/dL 70-99 H POC Glu Comment 1 (test code = 7393428541) Notified RN/MD POC Performing Location (gio t code = 3639851615) 2A S/Or/Ne Lab Interpretation (test cod e = 09762-0) Abnormal [facility] Rywgeik2178-34-05 00:00:39* Test Item Value Reference Range Interpretation Comme nts POC Glu (test code = 5744243187) 212 mg/dL 70-99 H POC Glu Comment 1 (test code = 2457571229) Notified RN/MD POC Performing Location (gio t code = 3530807045) 2A S/Or/Ne Lab Interpretation (test cod e = 67897-1) Abnormal [facility] Orajfqr1148-26-26 17:37:34* Test Item Value Reference Range Interpretation Comme nts POC Glu (test code = 5281321820) 261 mg/dL 70-99 H POC Glu Comment 1 (test code = 6812116520) Notified RN/MD POC Performing Location (gio t code = 7287466018) 2A S/Or/Ne Lab Interpretation (test cod e = 85735-2) Abnormal [facility]2024-12-16 15:25:01* Test Item Value Reference Range Interpretation Comme nts POC Glu (test code = 9626119304) 249 mg/dL 70-99 H POC Glu Comment 1 (test code = 2385676580) Notified RN/MD POC Performing Location (gio t code = 0347050926) 2A S/Or/Ne Lab Interpretation (test cod e = 88249-5) Abnormal [facility] [place] [facility]2024-12-16 13:37:22* Test Item Value Reference Range Interpretation Comme nts POC Glu (test code = 9716852143) 288 mg/dL 70-99 H POC Performing Location (gio t code = 7322796688) 2A S/Or/Ne Lab Interpretation (test cod e = 12768-3) Abnormal [facility]2024-12-16 12:12:37* Test Item Value Reference Range Interpretation Comme nts POC Glu (test code = 9763989632) 330 mg/dL 70-99 H POC Glu Comment 1 (test code = 9372137532) Notified RN/MD POC Performing Location (gio t code = 3357965871) 2A S/Or/Ne Lab Interpretation (test cod e = 42060-5) Abnormal [facility] Mysowkp5312-85-21 11:30:18* Test Item Value Reference Range Interpretation Comme nts POC Glu (test code = 8948376385) 327 mg/dL 70-99 H POC Performing Location (gio t code = 1808899644) 2A S/Or/Ne Lab Interpretation (test cod e = 13929-1) Abnormal [facility] Qtnrlla3309-99-34 10:10:34* Test Item Value Reference Range Interpretation Comme nts POC Glu (test code = 6554865137) 327 mg/dL 70-99 H POC Glu Comment 1 (test code = 8901705311) Notified RN/MD POC Performing Location (gio t code = 3833998175) 2A S/Or/Ne Lab Interpretation (test cod e = 71614-8) Abnormal [facility] Eedadnz3422-37-53 09:09:20* Test Item Value Reference Range Interpretation Comme nts POC Glu (test code = 3186956752) 352 mg/dL 70-99 H POC Glu Comment 1 (test code = 3074486274) Notified RN/MD POC Performing Location (gio t code = 8700658315) 3/PACU Lab Interpretation (test cod e = 45017-5) Abnormal [facility] Nnwjddo9467-56-59 08:18:59* Test Item Value Reference Range Interpretation Comme nts POC Glu (test code = 4971641606) 323 mg/dL 70-99 H POC Performing Location (gio t code = 0724092577) 3/PreOp Lab Interpretation (test cod e = 31567-9) Abnormal [facility] Wcxfywo8134-17-76 07:10:42* Test Item Value Reference Range Interpretation Comme nts POC Glu (test code = 9159393488) 321 mg/dL 70-99 H POC Performing Location (gio t code = 3065379147) 3/PreOp Lab Interpretation (test cod e = 04287-4) Abnormal [facility] Zekjrlq0267-81-48 16:30:10* Test Item Value Reference Range Interpretation Comme nts POC Glu (test code = 4243538512) 172 mg/dL 70-99 H POC Glu Comment 1 (test code = 7559419091) Notified RN/MD POC Performing Location (gio t code = 9330888192) 1A GM/Surg Lab Interpretation (test cod e = 82477-0) Abnormal [facility] Gqenlks0356-22-03 11:37:25* Test Item Value Reference Range Interpretation Comme nts POC Glu (test code = 4508726841) 216 mg/dL 70-99 H POC Glu Comment 1 (test code = 9334108636) Notified RN/MD POC Performing Location (gio t code = 4081259487) 1A GM/Surg Lab Interpretation (test cod e = 45607-1) Abnormal [facility] Awjtjqy2720-35-57 08:26:46* Test Item Value Reference Range Interpretation Comme nts POC Glu (test code = 6831258826) 287 mg/dL 70-99 H POC Glu Comment 1 (test code = 5147285539) Notified RN/MD POC Performing Location (gio t code = 9087643032) 1A GM/Surg Lab Interpretation (test cod e = 61448-8) Abnormal [facility]- XR SHOULDER 1 V [id number] 10:33:00 [facility] 1960 Sex: M Patient Name: EREN HODGE Unit No: [id number] EXAMS: CPT CODE: [id number] XR SHOULDER 1 VRT 49030 IMAGES PROVIDED: Single AP view of the right shoulder FINDINGS: 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 No acute fracture. Visualized lung is clear. IMPRESSION: Right reverse total shoulder arthoplasty without immediate complication. at 1033 Reported and signed by: Maximo Chen M.D. CC: Manish Styles MD Technologist: ALEX JOE (RT.R) Transcribed D/ (1033) tDANNY [facility] NAME: EREN HODGE [address] [facility] PHYS: Manish Leos MD : 1960 AGE: 61 SEX: M [place] [id number] LOC: [id number] A PHONE #: [phone] EXAM DATE: 05/25/2022 STATUS: ADM IN FAX #: [phone] RAD #: D/C DT PAGE 1 Signed Report Patient Name: EREN HODGE Unit No: [id number] EXAMS: CPT CODE: [id number] XR SHOULDER 1 V RT 46213 (Continued) Orig Print D/T: S: 05/26/2022 (1036) [facility] NAME: EREN HODGE [address] [facility] PHYS: Manish Leal MD : 1960 AGE: 61 SEX: M [place], [place] [address] LOC:Y.O17 A PHONE #: [phone] EXAM DATE: 05/25/2022 STATUS: ADM IN FAX #: [phone] RAD #: D/C DT PAGE 2 Signed Report [id number] 07:10:00* Test Item Value Reference Range Interpretation Comme nts GLUBED (test code = GLUBED) 234 mg/dL 60-125 H FQDGMX7536-57-05 05:07:00* Test Item Value Reference Range Interpretation Comme nts GLUBED (test code = GLUBED) 338 mg/dL 60-125 H asbnmf3394-56-59 04:53:00* Test Item Value Reference Range Interpretation Comme nts glubed (test code = glubed) 338 mg/dL 60-125 H performing lab: (test code = performing lab:) [facility]* Test Item Value Reference Range Interpretation Comme nts glubed (test code = glubed) 234 mg/dL 60-125 H performing lab: (test code = performing lab:) [facility] 12:46:00* Test Item Value Reference Range Interpretation Comme nts GLUBED (test code = GLUBED) 228 mg/dL 60-125 H jylvnd0999-71-06 12:19:00* Test Item Value Reference Range Interpretation Comme nts glubed (test code = glubed) 228 mg/dL 60-125 H performing lab: (test code = performing lab:) [facility] 11:05:00* Test Item Value Reference Range Interpretation Comme nts GLUBED (test code = GLUBED) 308 mg/dL 60-125 H xcvmwi6011-38-63 10:54:00* Test Item Value Reference Range Interpretation Comme nts glubed (test code = glubed) 308 mg/dL 60-125 H performing lab: (test code = performing lab:) [facility] Msdabwo3413-22-99 07:38:00* Test Item Value Reference Range Interpretation Comme nts Novel Coronavirus 2019 Inhouse (test code = COVNONPUI) Negative Negative Positive resul ts are indicative of the presence uhJJTU-BkP-8 RNA, clinical correlation with patient historyand other [...] the qualitative detection of nucleic acids from zuuGSLX-JyH-8 virus and diagnosis of SARS-CoV-2 virusinfection. It is an Emergency Use Authorization (EUA) testauthorized by the U.S. FDA. Novel Coronavirus 2019 Ilduqsu8757-61-08 07:37:00* Test Item Value Reference Range Interpretation Comme nts Novel Coronavirus 2019 Inhouse (test code = COVNONPUI) Negative Negative Positive resul ts are indicative of the presence xxJNHZ-SsI-9 RNA, clinical correlation with patient historyand other [...] the qualitative detection of nucleic acids from vmlGYUI-KsE-5 virus and diagnosis of SARS-CoV-2 virusinfection. It is an Emergency Use Authorization (EUA) testauthorized by the [place] FDA. COMPREHENSIVE METABOLIC [id number] 10:36:00* Test Item Value Reference Range Interpretation [...] 92.6 >60 Unit of m easure: mL/min/1.73 g1Rekkhejug Range:Healthy Adults >90 mL/min/1.73 m2 For Chronic [...] = ALKP) 111 U/L 46-116 N PROTHROMBIN [id number] 10:35:00* Test Item Value Reference Range Interpretation [...] Patient is on Heparin Drip? NOTHROMBOPLASTIN TIME [id number] 10:35:00* Test Item Value Reference Range Interpretation [...] 0 % 0-0 N Novel Coronavirus 2018 [id number] 07:21:00* Test Item Value Reference Range Interpretation Comme nts Novel Coronavirus 2019 Inhouse (test code = COVNONPUI) Negative Negative Positive resul ts are indicative of the presence vsLOZF-GgX-6 RNA, clinical correlation with patient historyand other [...] in vitro. SPECIMEN COMMENT: NASALNovel Coronavirus 2019 [id number] 07:20:00* Test Item Value Reference Range Interpretation Comme nts Novel Coronavirus 2019 Inhouse (test code = COVNONPUI) Negative Negative Positive resul ts are indicative of the presence ftLBBB-TvT-9 RNA, clinical correlation with patient historyand other [...] fructosamineshould be considered for these patients.DONE AT: [facility] [id number] [place] [id number] GLYCOSYLATED HEMOGLOBIN (HA1C)2021-09-15 17:34:00* Test Item Value [...] be considered for these patients. BASIC METABOLIC [id number] 10:16:00* Test Item Value Reference Range Interpretation [...] 86.6 >60 Unit of m easure: mL/min/1.73 b0Thmcyosmi Range:Healthy Adults >90 mL/min/1.73 m2 For Chronic Kidney Disease: Stage II Mild Decrease in GFR 60-90 Stage III Moderate Decrease in GFR 30-59 Stage IV Severe Decrease in GFR 15-29 Stage V Kidney Failure <15 CREATININE (test code = CREAT) 0.89 mg/dL 0.55-1.30 N CALCIUM (test code = CA) 8.7 mg/dL 8.2-10.1 N - CT UP EXTREM W/O CONT [id number] 12:14:00 [facility] 1960 Sex: M Patient Name: EREN HODGE Unit No: [id number] EXAMS: CPT CODE: [id number] CT UP EXTREM W/[place] [address] CT OF THE RIGHT SHOULDER WITH SAGITTAL AND CORONAL RECONSTRUCTIONS DIAGNOSIS: Comparison is made with the previous examination of December 04, 2020. On the current examination there isincreased superior migration of the humeral head which [...] with ACR practice standards and adherence to concert or lecture hall manager's recommendations. Rotator cuff arthropathy is again noted which is more severe than on the previous examination. There is anterior superior subluxation of the humeral head at 1214 Reported and signed by: Gab Ness MD CC: Manish Styles MD Technologist: Wolf Graham,RT(R) CTDI: DLP: Trnscrpt: 07/16/2021 (1214) t.ADIR.JCL [facility] NAME: ERNE HODGE [address] [facility] PHYS: CARMEN StylesManish Ramsay : 1960 AGE: 60 SEX: M [place] [address] : Y.RAD PHONE #: [phone] EXAM DATE: 07/16/2021 STATUS: REG CLI FAX #: [phone] RAD #: D/C DT PAGE 1 Signed Report Patient Name: EREN HODGE Unit No: [id number] EXAMS: CPT CODE: [id number] CT UP EXTREM W/[place] [address] (Continued) Orig Print D/T: S: 07/16/2021 (1217) [facility] NAME: EREN HODGE [address] [facility] PHYS: Manish Leos Devendra : 1960 AGE: 60 SEX: M [place] [address] LOC: Y.RAD PHONE #: [phone] EXAM DATE: 07/16/2021 STATUS: REG CLI FAX #: [phone] RAD #: D/C DT PAGE 2 Signed [id number] 12:07:00* Test Item Value Reference Range Interpretation Comme nts GLUBED (test code = GLUBED) 192 mg/dL 60-125 H Novel Coronavirus 2019 [id number] 03:02:00* Test Item Value Reference Range Interpretation Comme nts Novel Coronavirus 2019 Inhouse (test code = COVNONPUI) Negative Negative Positive resul ts are indicative of the presence qfFOAY-XvJ-8 RNA, clinical correlation with patient historyand other [...] SARS-CoV-2 assay in vitro. Novel Coronavirus 2019 [id number] 03:02:00* Test Item Value Reference Range Interpretation Comme nts Novel Coronavirus 2019 Inhouse (test code = COVNONPUI) Negative Negative Positive resul ts are indicative of the presence pfQYJH-KwR-2 RNA, clinical correlation with patient historyand other [...] assay in vitro. - XR ARTHROGRAM SHLDR [id number] 12:21:00 [facility] 1960 Sex: M Patient Name: EREN HODGE Unit No: [id number] EXAMS: CPT CODE: [id number] [address] RIGHT SHOULDER ARTHROGRAM AND LIDOCAINE INJECTION. DIAGNOSIS: Full- thickness rotator cuff tear. COMMENT: COMPARISON: No prior exams available. After informed consent was obtained a single-contrast arthrogram was performed with Isovue-300 . 0.3 minutes of fluoroscopy time was utilized. There was irregular filling of the joint and prompt leakage [...] with ACR practice standards and adherence to concert or lecture hall manager's recommendations. Degenerative changes are present as described. The rotator cuff is abnormal as noted. at 1221 Reported and signed by: Gab Ness MD CC: Manish Styles MD Technologist: Agata Hobbs RT.(R) Transcribed D/ (1221) t.ADIR.JCL [facility] NAME: EREN HODGE [address] PHYS: Manish Leos : 1960 AGE: 60 SEX: M [place], [place] [address] LOC: Y.RAD PHONE #: [phone] EXAM DATE: 12/04/2020 STATUS: REG CLI FAX #: [phone] RAD #: D/C DT PAGE 1 Signed Report Patient Name: EREN HODGE Unit No: [id number] EXAMS: CPT CODE: [id number] [place] [address] (Continued) Orig Print D/T: S: 12/04/2020 (1224) [facility] NAME: EREN HODGE [address] [facility] PHYS: Manish Leos : 1960 AGE: 60 SEX: M [place], [place] [address] LOC: Y.RAD PHONE #: [phone] EXAM DATE: 12/04/2020 STATUS: REG CLI FAX #: [phone] RAD #: D/C DT PAGE 2 Signed Report- CT UP EXTRM W W/O CON [id number] 12:21:00 [facility] : 1960 Sex: M Patient Name: EREN HODGE Unit No: [id number] EXAMS: CPT CODE: [id number] CT [place] EXTRM W W/[place] [address] RIGHT SHOULDER ARTHROGRAM AND LIDOCAINE INJECTION. DIAGNOSIS: [...] with ACR practice standards and adherence to concert or lecture hall manager's recommendations. Degenerative changes are present as described. The rotator cuff isabnormal as noted. at 1221 Reported and signed by: Gab Ness MD CC: Manish Styles MD Technologist: RT Fiona(R) CTDI: DLP: Trnscrpt: 12/04/2020 (1221) tMINIJCL [facility] NAME: EREN HODGE [address] [place] [address] PHYS: Manish Leos : 1960 AGE: 60 SEX: M [place] [address] LOC: Y.RAD PHONE #: [phone] EXAM DATE: 12/04/2020 STATUS: REGCLI FAX #: [phone] RAD #: D/C DT PAGE 1 Signed Report Patient Name: EREN HODGE Unit No: [id number] EXAMS: CPT CODE: [id number] CT UP EXTRM W W/[place] [address] (Continued) Orig Print D/T: S: 12/04/2020 (1224) [facility] NAME: EREN HODGE [address] [facility] PHYS: Manish Leos : 1960 AGE: 60 SEX: M [place] [address] LOC: YEMERY PHONE #: [phone] EXAM DATE: 12/04/2020 STATUS: [facility] FAX #: [phone] RAD #: D/C DT PAGE 2Signed Report Consult Notes Date/Time Note Provider Source 2024-11-09 14:23:16 Associated Order(s): IP CONSULT TO FISCAL ACCOUNTANT Responding to a diabetes education consult. Chart [...] time. ADA handouts provided on topics discussed. [employer] MECH[employer]IC Nursing [facility] 2024-11-08 15:13:16 Associated Order(s): IP CONSULT TO CASE MANAGEMENT Noted MD consult for CM consult. Spoke to Sabrina with ID clinic. [place] already arranged. Provided pt's room and cell phone numbers to reach pt. Pt/daughter and sister at updated. Pt will go to ID clinic tomorrow. [employer] MECHANIC Case Management Intelligence Officer [facility] 2024-11-06 16:23:23 Patient does not have an identified yarsanism preference but a visit from landfill gas collection system operator services was requested for patient during admission process. Rate Reviewer attempted to visit patient but found patient asleep and unresponsive to dietary aid's presence and attempt to visit. Rate Reviewer will request follow up from landfill gas collection system operator services for patient as circumstances allow. [employer] MECHANIC Pastoral Care [facility] 2024-11-04 19:45:00 Reason For Consult Right knee swelling, effusion History Of Present Illness Eren Hodge is a 64 y.o. male with PMH of Heavy alcohol abuse, type II DM but not on any medications, osteoarthritis who received injections to his right knee almost 1 week ago came with complaints of right knee pain swelling for the past 3 days that gradually worsened He went to [facility]'s ER and was diagnosed with possible septic [...] had X ray, ultrasound were done at [facility] but images are not uploaded. It seems [...] arthrotomy with synovectomy. Surgery is Scheduled for rn allergy NPO after midnight Risks and benefits were reviewed with patient. Potential complications were discussed that include but not limited to infection, wound complication, injury to nerve, anesthesia complication, worsening oxygenation status. , May require multiple procedures, DVT, PE, Fat embolism. Consent was obtained. UT MECHANIC [facility] History and Physical Notes Date/Time Note Provider Source 2024-11-05 07:28:48 Knee aspiration found purulent material, I recommend surgery UT MECHANIC Source Note - Duncan Klein MD - 11/04/2024 8:07 AM LAYOUT MECHANIC History Of Present Illness Eren Hodge is a 64 y.o. male with PMH of Heavy alcohol abuse, Dm2 but not on any medications, osteoarthritis who received injections to his right knee almost 1 week ago came with complaints of right knee pain swelling for the past 3 days that gradually worsened He went to [facility] ER and was diagnosed with possible septic [...] for now and start long-acting insulin and micropaleontologist consult once patient can tolerate p.o. intake CIWA protocol for alcohol abuse DVT ppx: chemical ppx once cleared by Ortho DISPO: expect 2 Mn stay UT MECHANIC UT MECHANIC [facility] 2024-11-04 08:07:13 History Of Present Illness Eren Hodge is a 64 y.o. male with PMH of Heavy alcohol abuse, Dm2 but not on any medications, osteoarthritis who received injections to his right knee almost 1 week ago came with complaints of right knee pain swelling for the past 3 days that gradually worsened He went to [facility]' ER and was diagnosed with possible septic [...] for now and start long-acting insulin and micropaleontologist consult once patient can tolerate p.o. intake CIWA protocol for alcohol abuse DVT ppx: chemical ppx once cleared by Ortho DISPO: expect 2 Mn stay UT MECHANIC UT MECHANIC Internal Medicine Physician [facility] Procedure Notes Date/Time Note Provider Source 2024-11-05 07:38:00 Date: 11/05/2024 Diagnosis: Right Knee septic arthritis Procedures: Irrigation and debridement of the right knee joint Arthrotomy of the right knee with a synovectomy Placement of antibiotic cement beads using stimulan Surgeons: * Saurabh Chavarria - Primary Shingle Carrier: * No surgical staff found * Anesthesia: General Estimated Blood Loss: Minimal Drains: * None in log * Urine Output: None Indications: rEen Hodge is an 64 y.o. male who was [...] patient tolerated entire operative procedures very well. IDr. Chavarria performed entire operative procedure. Findings: Specimens ID Source Type Tests Collected By Collected At Frozen? Priority Lab ID A Knee, Right E-Swab ANAEROBIC CULTURE WOUND CULTURE W/GRAM STAIN, SURGICAL FUNGAL CULTURE W/SMEAR Saurabh Chavarria MD 11/05/24 0840 Routine [id number], [id number], [id number] Description: intraoperative knee culture Implants Type Name Action Serial No. Graft KIT PASTE STIMULAN RAPID CURE - [id number] Implanted Procedure for cancer: Procedure for Cancer?: No Complications: No Disposition: PACU Condition: stable Attending Attestation: I was present and scrubbed for the entire procedure. [facility] Notes Date/Time Note Provider Source Referral ID Status Reason Start Date Expiration Date Visits Requested Visits Authorized [id number] Pending Review Specialty Services Required 01/08/2025 999 999 [facility]2024-12-20 14:28:41* Auth/Cert (Routine) Specialty Diagnoses / Procedures Referred By Contac t Referred To Contact Diagnoses Septic arthritis (HCC) Septic Joint-Right knee [place] [address] [place] [address] Phone: tel: fax: [facility] (2a Ortho/Neuro) [address] [facility] [place] [address] Phone: tel: fax: Referral ID Status Reason Start Date Expiration Date Visits Re quested Visits Authorized [id number] 1 [facility] 14:28:41* Audit-C Score Answer Date of Assessment Author 10 11/04/2024 9:33 AM Óscar House RN * Intimate Partner Violence Question Answer Date of Assessment Author Within the last year, have y ou been humiliated or emotionally abused in other ways by your partner or ex-partner? No 11/04/2024 9:33 AM Gia Connor RN Within the last year, have y ou been afraid of your partner or ex-partner? No 11/04/2024 9:33 AM Gia House RN Within the last year, have y ou been raped or forced to have any kind of sexual activity by your partner or ex-partner? No 11/04/2024 9:33 AM Gia House RN Within the last year, have y ou been kicked, hit, slapped, or otherwise physically hurt by your partner or ex-partner? No 11/04/2024 9:33 AM Gia House RN * * Calculated C-SSRS Risk Score (Lifetime/Recent) Answer Date of Assessment Author No Risk Indicated 11/04/2024 9:52 AM LAYOUT MECHANIC Gia Llamas RN * Scott Suicide Severity Rating Scale (Screener/Recent Self-Report) Question Answer Date of Assessment Author 1. Wish to be (Past 1 Month) No 024 9:52 AM LAYOUT MECHANIC Gia Llamas RN 2. Non-Specific Active Suici bryon Thoughts (Past 1 Month) No 11/04/2024 9:52 AM LAYOUT MECHANIC Gia Llamas RN 6. Suicidal Behavior (Lifetime) No 4 9:52 AM LAYOUT MECHANIC Gia Llamas RN [facility]-79 14:28:41* Toby Hoyos, PT - 11/09/2024 9:45 AM LAYOUT MECHANIC Physical Therapy Treatment Note Patient Name: Eren Hodge Patient Location: [place] [address] [address] Today's Date: 11/09/2024 Start Time: 944 Stop Time: 1030 Preferred Language: Romanian AM-PAC Basic Mobility: Turning in bed without bedrails: None Lying on back to sitting on edge of flat bed: None Bed to chair: A Little Standing up from chair: A Little Walk in room: A Little Climbing 3-5 stairs: A Lot Mobility Inpatient Raw Score: 19 -HLM Goal: 6 Walked 25 feet or more (i.e. walked outside of room) Assessment PT Assessment: Pt. presents supine in bed. Sup to sit on eob with SBA. Pt. sat eob/bs chair x 20 minutes working on S/D sitting balance while preparing for oob mobility, performing Richar LE AROM ex's including AP's, seated heel slides, LAQ, supine heel slides, quad sets x 10 reps ea with rest breaks as needed and performing ADL's. Sit to stand from eob to RW with SBA/CGA. Pt. ambulated x 90 ft using RW with SBA/CGA. Stand to sit on bs chair with SBA/CGA. Increased time required with all mobility, ADL's and ex's. Prognosis: Good Evaluation/Treatment Tolerance: Patient tolerated treatment well Medical Staff Made Aware: Yes Plan Treatment Plan/Goals Established with Patient/Caregiver: Yes Treatment/Interventions: (Cont per POC) PT Plan: Skilled PT PT Frequency: Other (Comment) (Cont per POC) PT Discharge Recommendations: Outpatient PT Equipment Recommended: Walker- rolling DME Recommendation and Justification: ROLLING WALKER: The functional mobility deficit can be sufficiently resolved with the use of walker. Therapy discharge recommendations are made by determining the patient's prior level of function, assessing current function level and establishing rehab potential. The overall discharge plan may be affected by input from Physicians, Care Coordination, medical condition/status, family support and insurance benefits. Subjective Pt. Agreed to PT treat. "OK" Pain: Pain Assessment: DVPRS Pain Score: 5 Pain Rating Scale (DVPRS): Interrupts some activities Pain Type: Surgical pain Pain Location: Knee Pain Orientation: Right Pain Interventions: Distraction, Emotional support, Rest, Repositioned Objective Vital Signs: Stable General Visit Information: Cognition: Overall Cognitive Status: Within Functional Limits Behavior/Cognition: Alert, Cooperative, Pleasant mood Orientation Level: Oriented X4 Activity Tolerance: Endurance: Tolerates 30 min exercise with multiple rests Sitting Balance: Supports self independently with both upper extremities Treatment: Therapeutic Exercise: Therapeutic Exercise Time Entry: 15 Therapeutic Exercise Activity 1: Pt. performed AROM ex's including AP's, seated heel slides, LAQ, supine heel slides, quad sets x 10 reps ea with rest breaks as needed. Bed Mobility: Bed Mobility: Yes Bed Mobility 1 Level of Assistance 1: Supervision/touching assistance Bed Mobility To/From: Supine to sit on EOB Transfers: Level of Assistance 1: Supervision/touching assistance Transfer To/From: Cyk-ti-Mwmjz/Pbipz-mp-Zim Assistive Devices And Adaptive Equipments: Walker, front-wheeled Gait Training: Gait Training Time Entry: 30 Gait Training Activity: Distance (enter in feet): 90 ft Gait Training Activity 1: Indoor surface Assistive Devices And Adaptive Equipments: Walker, front-wheeled Level of Assistance 1: Supervision/touching assistance Gait Training Activity 1 Comment: Gait was very slow but steady and without lob. Step to gait pattern. At end of session: RN notified, in chair, alarm intact, and call perez in reach Patient Education: Education Documentation Home Exercise Program, taught by Toby Hoyos PT at 11/09/2024 1:20 PM. Learner: Patient Readiness: Acceptance Method: Explanation, Demonstration Response: Verbalizes Understanding, Needs Reinforcement Home Safety, taught by Toby Hoyos PT at 11/09/2024 1:20 PM. Learner: Patient Readiness: Acceptance Method: Explanation, Demonstration Response: Verbalizes Understanding, Needs Reinforcement Fall Prevention, taught by Toby Hoyos PT at 11/09/2024 1:20 PM. Learner: Patient Readiness: Acceptance Method: Explanation, Demonstration Response: Verbalizes Understanding, Needs Reinforcement Mobility, taught by Toby Hoyos PT at 11/09/2024 1:20 PM. Learner: Patient Readiness: Acceptance Method: Explanation, Demonstration Response: Verbalizes Understanding, Needs Reinforcement Physical Therapy Plan of Care, taught by Toby Hoyos PT at 11/09/2024 1:20 PM. Learner: Patient Readiness: Acceptance Method: Explanation, Demonstration Response: Verbalizes Understanding, Needs Reinforcement Education Comments No comments found. Treatment Note: If this is the last documented treatment, then it will signify discharge from acute care prior to discharge from the therapy service and will serve as the discharge summary. Toby Hoyos PT UT MECHANIC * Saurabh Chavarria MD - 11/08/2024 10:54 AM LAYOUT MECHANIC Subjective Post op 3 days status post I&D of the right knee with arthrotomy for the septic arthritis with the placement of antibiotic beads. Pain is under control. Patient did therapy with weightbearing as tolerated. Objective Last Recorded Vitals Blood pressure 135/72, pulse 85, temperature 37.1 ?C (98.8 ?F), resp. rate 17, height 1.626 m (5' 4.02"), weight 68.3 kg (150 lb 8.1 oz), SpO2 95%. Physical Exam:Right knee: Dressing is on. No evidence of any soaking of dressing. Full range of motion of the toes and ankle. No growth of the bacteria in the culture so far. Impression: Assessment & Plan Septic arthritis (HCC) Diabetes mellitus (HCC) Alcohol withdrawal (HCC) Hyperglycemia due to diabetes mellitus (CMS/HCC) (HCC) High anion gap metabolic acidosis Hypomagnesemia Acute sepsis (CMS/HCC) (HCC) Hiccup Hypokalemia Impression:3 days status post I&D of the right knee arthrotomy for septic arthritis Plan: Continue IV antibiotic as per recommendation by infectious disease specialist. Patient can be discharged home whenever is cleared by admitting team and IDteam. I will follow patient in the clinic in about 2 weeks F/u Appointment: [place] Location: [id number] [place] [address] [place] Location: Tuesday [id number], [place] [address] [place] Location:[facility], [address], [place] [address] Yms: [phone] Current Diet: Adult Diet Carbohydrate Controlled; Carb choice 1800 nikki UT MECHANIC * Malena Stratton MD - 11/08/2024 10:35 AM LAYOUT MECHANIC [facility] ([facility]) Integrated [facility] Medicine Program Progress Note Patient:Eren Hodge LOS: 4days Date:1960 Admission Date:11/04/2024 Attending:Malena Stratton MD REASON FOR VISIT : Septic arthritis (HCC) SUBJECTIVE : Patient seen and examined bedside today, patient seated in chair, pain is improving, no fever, REVIEW OF SYSTEMS : Complete 14 point review of system was assessed and is negative except for as mentioned above. PHYSICAL EXAMINATION : Visit VitalsBP 135/72 Pulse 85 Temp 37.1 ?C (98.8 ?F) Resp 17 Ht 1.626 m (5' 4.02") Wt 68.3 kg (150 lb 8.1 oz) SpO2 95% BMI 25.82 kg/m? Smoking Status Never BSA 1.76 m? PHYSICAL EXAMINATION: Physical Exam:Constitutional: Appearance: Normal appearance. HENT: Head: Normocephalic and atraumatic. Mouth/Throat: Mouth: Mucous membranes are moist. Eyes: Extraocular Movements: Extraocular movements intact. Pupils: Pupils are equal, round, and reactive to light. Cardiovascular: Rate and Rhythm: Normal rate and regular rhythm. Heart sounds: Normal heart sounds. Pulmonary: Effort: Pulmonary effort is normal. Breath sounds: Normal breath sounds. Abdominal: General: Bowel sounds are normal. Palpations: Abdomen is soft. Musculoskeletal: General: Normal range of motion. Cervical back: Normal range of motion and neck supple. Comments: Right knee with a dressing Skin: General: Skin is warm. Neurological: General: No focal deficit present. Mental Status: He is alert. Mental status is at baseline. Psychiatric: Mood and Affect: Mood normal. Behavior: Behavior normal. CURRENT MEDICATIONS : Home Meds:No current outpatient medications Scheduled Hospital Meds:ceFAZolin, 2 g, Intravenous, q8h enoxaparin, 40 mg, Subcutaneous, q24h folic acid, 1 mg, Oral, Daily insulin glargine, 10 Units, Subcutaneous, Every evening metoclopramide, 10 mg, Oral, q8h NATACHA metoprolol tartrate, 25 mg, Oral, q12h NATACHA multivitamin, 1 tablet, Oral, Daily pantoprazole, 40 mg, Oral, Daily sodium chloride, 10 mL, Intravenous, q12h NATACHA sodium chloride, 10 mL, Intravenous, q12h NATACHA Scheduled drips: PRN meds: PRN medications: acetaminophen, cloNIDine, dextrose, dextrose, glucagon, guaiFENesin-codeine, hydrALAZINE, HYDROcodone-acetaminophen, insulin lispro, LORazepam, morphine, ondansetron, sennosides, simethicone, sodium chloride, sodium chloride CURRENT DIET :Adult Diet Carbohydrate Controlled; Carb choice 1800 nikki INPUT/OUTPUT : Intake/Output Summary (Last 24 hours) at 11/08/2024 1035Last data filed at 11/07/2024 1648 Gross per 24 hour Intake 600 ml Output 1100 ml Net -500 ml ACP/ CODE STATUS : Full Code INVESTIGATION DATALABS : Results from last 7 days Lab Units 11/08/24 0604 WBC 10*3/uL 9.90 HEMOGLOBIN g/dL 11.1* HEMATOCRIT % 32.3* PLATELETS 10*3/uL 447* LYMPHOCYTES % 15.3 MONOCYTES % 15.5* Results from last 7 daysLab Units 11/08/24 0641 11/08/24 0604 11/07/24 0642 11/07/24 0522 SODIUM mEq/L -- 136 -- 131* POTASSIUM mEq/L -- 3.2* -- 3.4 CHLORIDE mEq/L -- 98 -- 95* CO2 mEq/L -- 30.9 -- 28.1 BUN mg/dL -- 12 -- 14 CREATININE mg/dL -- 0.68* -- 0.70 CALCIUM mg/dL -- 8.8 -- 9.0 PROTEIN TOTAL g/dL -- -- -- 5.1* BILIRUBIN TOTAL mg/dL -- -- -- 0.39 ALK PHOS U/L -- -- -- 128* ALT U/L -- -- -- 15 AST U/L -- -- -- 14 GLUCOSE mg/dL -- 162* -- 217* POC GLUCOSE mg/dL 143* -- < > -- < > = values in this interval not displayed. CULTURE :Susceptibility data from last 90 days. Collected Organism Quantity Specimen Info 11/04/242037 Gram Positive Cocci Body Fluid from Knee, Right IMAGING :=== 11/04/24 === XR EXTERNAL STUDY === 11/04/24 === US EXTERNAL STUDY No results found for this or any previous visit from the past 365 days. ASSESSMENT AND PLAN No notes on file Assessment & PlanSeptic arthritis (HCC) Currently cefazolin based on ID recommendation, ID to decide final antibiotic therapy and duration of therapy, if patient needs long-term antibiotic therapy then will initiate PICC line today, Antipyretics and analgesics as needed Follow up blood cx, so far negative Pain control Acute sepsis ([facility]) ([facility]) Patient met sepsis criteria met continue broad-spectrum antibiotic coverage High anion gap metabolic acidosis Secondary to anion gap metabolic acidosis Positive ketones Resolved Hyperglycemia due to diabetes mellitus ([facility]/HCC) ([facility]) Controlled blood sugar, not well-controlled, add Lantus 10 units at bedtime Alcohol withdrawal ([facility]) CIWA protocol, resolved Hypomagnesemia Magnesium sulfate replaced Hypokalemia Potassium chloride replaced Hiccup Had Protonix and Reglan, resolved Diabetes mellitus ([facility]) High ISS Accuchecks per protocol We will add Lantus 10 units at bedtime DVT PROPHYLAXIS : Lovenox GI PROPHYLAXIS : Protonix OTHER PROPHYLAXIS : DISPOSITION PLAN : Home with home health REASON FOR ONGOING HOSPITALIZATION : Decision for antibiotic therapy upon discharge from ID team, Malena Stratton MDspital Medicine [facility] [place] * Shana Martinez, OT - 11/08/2024 9:52 AM LAYOUT MECHANIC Occupational Therapy Occupational Therapy Treatment Session Note Patient Name: Eren Hodge Today's Date: 11/08/2024 Room: [place] [id number] Start Time: 0952 Stop Time: 1017 Preferred Language: Romanian AM-PAC Daily Activity: Putting on and taking off regular lower body clothing: A Lot Bathing (including washing, rinsing, drying): A Lot Toileting, which includes using toilet, bedpan or urinal: A Little Putting on and taking off regular upper body clothing: A Little Taking care of personal grooming such as brushing teeth: A Little Eating Meals: None AM-[facility] Daily Activity Raw Score: 17 Mobility Highest Level of Mobility Performed (JH-HLM): Transferred to chair/commode Assessment & Plan Assessment: OT Assessment Results: Impaired ADL status Prognosis: Good Evaluation/Treatment Tolerance: Patient limited by fatigue, Patient limited by pain Medical Staff Made Aware: Yes Strengths: Attitude of self Pt is progressing toward goals. Pt will continue to benefit from skilled OT services. Plan: Treatment Plan/Goals Established with Patient/Caregiver: Yes Treatment Interventions: ADL retraining, Endurance training OT Plan: Skilled OT OT Frequency: 3-5 times per week until discharge OT Discharge Recommendations: Home Health OT Equipment Recommended: (tbd pending progress) OT - OK to Discharge: Yes OT Planned Treatments: Activities of Daily Living, Therapeutic activities, Therapeutic exercises OT Duration: 1-2 weeks The above plan of care is determined by the supervising OT. DME Recommendation and Justification: ROLLING WALKER: The patient has mobility limitations that significantly impairs their ability to perform one or more mobility-related activities of daily living such as toileting, feeding, grooming and bathing. The mobility impairment cannot sufficiently be resolved using a cane. Therapy discharge recommendations are made by determining the patient's prior level of function, assessing current function level and establishing rehab potential. The overall discharge plan may be affected by input from Physicians, Care Coordination, medical condition/status, family support and insurance benefits. Subjective "Can you help me to the bathroom?" Pain: 05/30 Precautions: Precautions UE Weight Bearing Status: FWB LE Weight Bearing Status: WBAT to RLE; FWB to LLE Medical Precautions: Falls/Standard Treatment Self-Care: Self Care/Home Management (ADLs) Time Entry: 25 Grooming Assistance: Supervision/touching assistance Grooming Deficit: Increased time to complete, Steadying, Verbal cueing, Wash/dry hands, Teeth care LE Dressing Assistance: Partial/Mod assistance Toileting Assistance: Supervision/touching assistance Toileting Deficit: Steadying, Verbal cueing, Supervison/safety, Increased time to complete, Clothing management up, Clothing management down ADL Comments: Patient seen for skilled OT services AM. Patient UIC upon OT arrival and indicated the need to void. Patient was assisted to bathroom at SBA w/ RW for mobility. Performed toileting and clothing management at min A and increased time for safety. Once completed, patient washed hands at sink and engaged in grooming care at SBA standing in front of sink. Good safety awareness noted. Patient returned to bedside chair with SBA with phone/call light in reach. Continue OT services. Transfers: Transfers Transfer: Yes Transfer 1 Technique 1: Via walking Level of Assistance 1: Supervision/touching assistance Transfer To/From: Chair Assistive Devices And Adaptive Equipments: Walker, front-wheeled Toilet Transfers Toilet Transfers Toilet Transfer To/From: Toilet Transfer Type: Via walking Level of Assistance: Supervision/touching assistance Assistive Devices And Adaptive Equipments: Walker, Front-wheeled Post Therapy Safety Checklist: Call light in reach, Nurse informed, All lines/leads intact, and Vitals signs stable Outcome Measures: Bernard Index of Idependence in Activities of Daily Living Bathing: Dependence Dressing: Dependence Toileting: Dependence Transferring: Dependence Continence: [place] Feeding: [place] Bernard Index of Idependence in Activities of Daily Living Total Points: 2 Patient Education:Education Documentation Mobility Training, taught by Shana Martinez OT at 11/08/2024 2:11 PM. Learner: Patient Readiness: Acceptance Method: Explanation Response: Verbalizes Understanding ADL Training, taught by Shana Martinez OT at 11/08/2024 2:11 PM.Learner: Patient Readiness: Acceptance Method: Explanation Response: Verbalizes Understanding OT Home Therapy Program, taught by Shana Martinez OT at 11/08/2024 2:11 PM.Learner: Patient Readiness: Acceptance Method: Explanation Response: Verbalizes Understanding Occupational Therapy Plan of Care, taught by Shana Martinez OT at 11/08/2024 2:11PM. Learner: Patient Readiness: Acceptance Method: Explanation Response: Verbalizes Understanding Education CommentsNo comments found. Goals:Encounter Goals Encounter Goals (Active) LTG - Patient will utilize adaptive techniques/equipment to dress lower body w/ mod I. (Progressing) Start: 11/07/24 Expected End: 11/14/24 STG - Patient tolerates sitting EOB w/ Supervision to complete g/h x10 minutes. (Progressing) Start: 11/07/24 Expected End: 11/14/24 STG - Transfers to toilet using RW w/ Supervision (Progressing) Start: 11/07/24 Expected End: 11/14/24 Treatment Note: If this is the last documented treatment, then it will signify discharge from acute care prior to discharge from the therapy service and will serve as the discharge summary. Shana Martinez OT [place] [employer] * Toby Hoyos, PT - 11/08/2024 8:50 AM LAYOUT MECHANIC Physical Therapy Evaluation and Treatment Patient Name: Eren Hodge Patient Location: 239 Today's Date: 11/08/2024 Time Calculation Start Time: 951 Stop Time: 1016 Time Calculation (min): 25 min Preferred Language: Romanian AM-PAC Basic Mobility: Turning in bed without bedrails: None Lying on back to sitting on edge of flat bed: None Bed to chair: A Little Standing up from chair: A Little Walk in room: A Little Climbing 3-5 stairs: A Little Mobility Inpatient Raw Score: 20 -HLM Goal: 6 Walked 10 steps or more (i.e. walked to restroom) PT Assessment: PT Assessment: Patient is a 64 y/o male who presents with R Knee swelling/pain and admitted with R knee septic arthritis now s/p R knee aspiration(11/05) and s/p R knee I&D with synovectomy and antibiotic cement beads placement. Upon evaluation, pt. presents supine in bed. Pt. demonstrates bed mobility with SBA, transfers to RW with CGA and ambulated x 15 ft using RW with CGA. Gait was slow and unsteady at times but without any loss of balance. Pt. demonstrates decreased strength, balance and endurance/activity tolerance as well as overall impaired functional mobility/gait at this time. Pt. will benefit from skilled PT services to address these limitations/impairments and promote increased independence with all functional mobility/gait for safe discharge to next setting. Anticipate pt. may benefit from a RW and OP vs HHPT services upon discharge pending progress and resources. Prognosis: Good Evaluation/Treatment Tolerance: Patient tolerated treatment well Medical Staff Made Aware: Yes Plan: Treatment Plan/Goals Established with Patient/Caregiver: Yes Treatment/Interventions: Balance training, Bed mobility training, Equipment training, Functional activities, Gait training, Patient education, Stair training, Therapeutic exercises, Transfer training PT Plan: Skilled PT PT Frequency: 4-5 times per week until discharge PT Discharge Recommendations: Outpatient PT, Home health PT Equipment Recommended: Walker- rolling DME Recommendation and Justification: ROLLING WALKER: The functional mobility deficit can be sufficiently resolved with the use of walker. Therapy discharge recommendations are made by determining the patient's prior level of function, assessing current function level and establishing rehab potential. The overall discharge plan may be affected by input from Physicians, Care Coordination, medical condition/status, family support and insurance benefits. Subjective: Pt. Agreed to PT eval/treat. "OK" Pain: Pain Assessment: DVPRS Pain Score: 5 Pain Rating Scale (DVPRS): Interrupts some activities Pain Type: Surgical pain Pain Location: Knee Pain Interventions: Repositioned, Distraction, Emotional support, Rest Vital Signs: Stable Current PT Diagnosis: Ambulation deficits, Bed mobility deficits, Decreased activity tolerance, Decreased functional mobility, ROM deficits, Strength deficits, and Transfer deficits Home Living: Type of Home: House Lives With: Alone Home Layout: One level Home Access: Stairs to enter without rails Entrance Stairs-Rails: None Entrance Stairs-Number of Steps: 1 Prior Level of Function: Level of [place]: Household ambulation Receives Help From: Family ADL Assistance: Independent Visitors Present: None Objective: Precautions: UE Weight Bearing Status: FWB LE Weight Bearing Status: WBAT R LE; FWB L LE Medical Precautions: Falls/standard Cognition: Overall Cognitive Status: Within Functional Limits Behavior/Cognition: Alert, Cooperative, Pleasant mood Orientation Level: Oriented X4 General Assessments: Activity Tolerance Endurance: Tolerates 30 min exercise with multiple rests Sitting Balance: Moves/returns truncal midpoint 1-2 inches in multiple planes Sensation Light Touch: RLE Intact, LLE Intact, RUE Intact, LUE Intact Dynamic Sitting Balance Dynamic Sitting-Balance Support: Right upper extremity supported, Left upper extremity supported, Feet supported Dynamic Sitting-Comments: SBA/CGA Static Standing Balance Static Standing-Balance Support: Right upper extremity supported, Left upper extremity supported Static Standing-Level of Assistance: Supervision/touching assistance Dynamic Standing Balance Dynamic Standing-Balance Support: Right upper extremity supported, Left upper extremity supported Dynamic Standing-Comments: CGA Functional Assessments: Bed Mobility Bed Mobility: Yes Bed Mobility 1 Level of Assistance 1: Supervision/touching assistance Bed Mobility To/From: Supine to sit on EOB Assistive Devices And Adaptive Equipments: Bed rail Bed Mobility 2 Level of Assistance 2: Partial/Mod assistance Bed Mobility To/From: Sitting EOB to supine Bed Mobility 3 Level of Assistance 3: Supervision/touching assistance Bed Mobility To/From: (scooting towards HOB) Bed Mobility 4 Level of Assistance 4: Independent Bed Mobility To/From: Supine to long sit Transfers Transfer: Yes Transfer 1 Technique 1: Via walking Level of Assistance 1: Supervision/touching assistance Transfer To/From: Chair Assistive Devices And Adaptive Equipments: Walker, front-wheeled Gait Training Gait Training Activity: Yes Gait Training Activity 1 Distance (enter in feet): 15 Gait Training Activity 1: Indoor surface Assistive Devices And Adaptive Equipments: Walker, front-wheeled Level of Assistance 1: Supervision/touching assistance Gait Training Activity 1 Comment: Gait was slow but steady and without lob. Step to gait pattern WBAT R LE. Extremity Assessments: RLE Assessment RLE Assessment: Within Functional Limits (Grossly WFL; limited by post-surgical site pain) LLE Assessment LLE Assessment: Within Functional Limits RUE Assessment RUE Assessment: Within Functional Limits LUE Assessment LUE Assessment: Within Functional Limits Treatment: Therapeutic Exercise Therapeutic Exercise Time Entry: 10 Therapeutic Exercise Activity 1: Richar UE/LE AROM seated ther ex (AP's, LAQ, Hip Flexion, bicep curls, shoulder flexion) x 15 reps ea with rest breaks as needed Therapeutic Activity Therapeutic Activity Time Entry: 15 Therapeutic Activity 1: Pt. presents supine in bed. Sup to sit on eob with SBA. Pt. sat eob/bs chair x 15 minutes working on S/D sitting balance while preparing for oob mobility, performing Richar UE/LE AROM seated ther ex (AP's, LAQ, Hip Flexion, bicep curls, shoulder flexion) x 15 reps ea with rest breaks as needed, and performing ADL's. Sit to stand from eob to RW with CGA. Pt. ambulated x 15 ft using RW with CGA. Stand to sit on bs chair with CGA. Increased time required with all mobility, ADL's and ex's. At end of session: RN notified, in chair, and call perez in reach Goal: Encounter Goals Encounter Goals (Active) Patient will progress supine<>sit with Modified [place] and no verbal cues. Start: 11/08/24 Expected End: 11/29/24 Patient will progress to ambulate on even surface using RW x 450 ft with Modified [place]. Start: 11/08/24 Expected End: 11/29/24 Patient will ascend and descend a standard curb using RW with Modified [place] in order to improve safety and efficiency with community mobility and doctor's visits. Start: 11/08/24 Expected End: 11/29/24 Patient will progress level surface transfers using RW with Modified [place] and no verbal cues. Start: 11/08/24 Expected End: 11/29/24 Patient Education:Education Documentation Home Exercise Program, taught by Toby Hoyos PT at 11/08/2024 3:41 PM. Learner: Patient Readiness: Acceptance Method: Explanation, Demonstration Response: Verbalizes Understanding, Needs Reinforcement Home Safety, taught by Toby Hoyos PT at 11/08/2024 3:41 PM.Learner: Patient Readiness: Acceptance Method: Explanation, Demonstration Response: Verbalizes Understanding, Needs Reinforcement Fall Prevention, taught by Toby Hoyos PT at 11/08/2024 3:41 PM.Learner: Patient Readiness: Acceptance Method: Explanation, Demonstration Response: Verbalizes Understanding, Needs Reinforcement Mobility, taught by Toby Hoyos PT at 11/08/2024 3:41 PM.Learner: Patient Readiness: Acceptance Method: Explanation, Demonstration Response: Verbalizes Understanding, Needs Reinforcement Physical Therapy Plan of Care, taught by Toby Hoyos PT at 11/08/2024 3:41 PM. Learner: Patient Readiness: Acceptance Method: Explanation, Demonstration Response: Verbalizes Understanding, Needs Reinforcement Education CommentsNo comments found. Treatment Note: If this is the last documented treatment, then it will signify discharge from acute care prior to discharge from the therapy service and will serve as the discharge summary. Toby Hoyos, PT [place] [employer] * Martita Nassar, OT - 11/07/2024 3:03 PM LAYOUT MECHANIC Occupational Therapy Evaluation and Treatment Patient Name: Eren Hodge Today's Date: 11/07/2024 Room: [place] [address] Start Time: 1: 25 pm Stop Time: 1: 53 pm Preferred Language: Romanian AM-PAC Daily Activity: Putting on and taking off regular lower body clothing: Total Bathing (including washing, rinsing, drying): A Lot Toileting, which includes using toilet, bedpan or urinal: A Lot Putting on and taking off regular upper body clothing: A Little Taking care of personal grooming such as brushing teeth: A Little Eating Meals: None AM-PAC Daily Activity Raw Score: 15 Mobility Highest Level of Mobility Performed (JH-HLM): Sat at edge of bed Assessment & Plan Assessment: OT Assessment Results: Impaired ADL status, Impaired endurance, Impaired functional mobility Prognosis: Good Evaluation/Treatment Tolerance: Patient limited by pain, Treatment limited secondary to medical complications (Comment) (limited by pending weight bearing restrictions) Medical Staff Made Aware: Yes Strengths: Attitude of self, Support of extended family/friends Pt would benefit from skilled acute OT services to address the above deficits. Plan: Treatment Plan/Goals Established with Patient/Caregiver: Yes Treatment Interventions: ADL retraining, Endurance training, Functional transfer training, UE strengthening/ROM OT Plan: Skilled OT OT Frequency: 3-5 times per week until discharge OT Discharge Recommendations: Home independent, Home Health OT (pending progress) Equipment Recommended: (tbd pending progress) OT - OK to Discharge: Yes OT Planned Treatments: Activities of Daily Living, Balance training, Mobility training, Patient education, Therapeutic activities, Therapeutic exercises OT Duration: 1-2 weeks DME Recommendation and Justification: Therapy discharge recommendations are made by determining the patient's prior level of function, assessing current function level and establishing rehab potential. The overall discharge plan may be affected by input from Physicians, Care Coordination, medical condition/status, family support and insurance benefits. Subjective Pt feels most limited by pain. Current Problem: Per EMR: Eren Hodge is a 64 y.o. male with PMH of Heavy alcohol abuse, Dm2 but not on any medications, osteoarthritis who received injections to his right knee almost 1 week ago came with complaints of right knee pain swelling for the past 3 days that gradually worsened He went to [facility] ER and was diagnosed with possible septic arthritis and transferred here for orthopedic surgery evaluation At present time patient's right knee is swollen painful, complains of 8 x 10 pain constant throbbing in nature nonradiating He admits to drinking about 4-5 drinks of vodka every day He was given broad-spectrum antibiotics at outside ER Patient Active Problem List Diagnosis Septic arthritis (HCC) Diabetes mellitus (HCC) Alcohol withdrawal (HCC) Hyperglycemia due to diabetes mellitus (CMS/HCC) (HCC) High anion gap metabolic acidosis Hypomagnesemia Acute sepsis (CMS/HCC) ([facility]) Hiccup Past Medical History: Diagnosis Date Diabetes mellitus (HCC) Pain: 11/07/24 1325 11/07/24 1353Pain Assessment Pain Assessment DVPRS DVPRS Pain Score 9 9 Pain Type Acute pain Acute pain Pain Location Knee Knee Pain Orientation Right Right Objective Vital Signs:HR WNL General Visit Information:Family/Caregiver Present: No Precautions:UE Weight Bearing Status: FWB LE Weight Bearing Status: pending R knee precautions from MD Cognition:Orientation Level: Oriented X4 Home Living:Type of Home: House Lives With: Significant other Home Adaptive Equipment: Walker rolling or standard, Crutches Home Layout: One level Bathroom Shower/Tub: Tub/shower unit Bathroom Toilet: Handicapped height Prior Function:Level of [place]: Household ambulation (Pt ambulated i'ly up until about a week ago began needing walker or crutches d/t pain) Receives Help From: Family ADL Assistance: Independent Homemaking Assistance: Independent 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 Prior Function Comments: drives Social History:Social History Source: Patient OT General Assessments:ADL Self Care/Home Management (ADLs) Time Entry: 13 Grooming Assistance: (using mouth wash and washing face w/ cloth long sitting in bed w/ set up A) Activity ToleranceEndurance: Tolerates less than 10 min exercise, no significant change in vital signs Sitting Balance: Supports self independently with both upper extremities SensationLight Touch: RUE Intact, LUE Intact Hand FunctionGross Grasp: Functional Coordination: Functional Mobility/Transfers:Bed Mobility Bed Mobility Bed Mobility: Yes Bed Mobility 1 Level of Assistance 1: Partial/Mod assistance Bed Mobility To/From: Supine to sit on EOB Assistive Devices And Adaptive Equipments: Bed rail Bed Mobility 2 Level of Assistance 2: Partial/Mod assistance Bed Mobility To/From: Sitting EOB to supine Bed Mobility 3 Level of Assistance 3: Supervision/touching assistance Bed Mobility To/From: (scooting towards HOB) Bed Mobility 4 Level of Assistance 4: Independent Bed Mobility To/From: Supine to long sit Functional MobilityFunctional Mobility Functional Mobility: Pt tolerated sitting EOB using BUEs to support self x1 minute only d/t pain. Rest break. Pt then long sitting in bed x3 minutes w/ Supervision to complete g/h. Extremity Assessments:Right Upper Extremity RUE Assessment RUE Assessment: Within Functional Limits (prior shoulder sx; does not limit RUE ROM or strength) Left Upper Extremity LUE AssessmentLUE Assessment: Within Functional Limits Outcome Measures:Bernard Index of Idependence in Activities of Daily Living Bathing: Dependence Dressing: Dependence Toileting: Dependence Transferring: Dependence Continence: [place] Feeding: [place] Bernard Index of Idependence in Activities of Daily Living Total Points: 2 Treatment:Self-Care: Self Care/Home Management (ADLs) Time Entry: 13 Grooming Assistance: (using mouth wash and washing face w/ cloth long sitting in bed w/ set up A) Bed Mobility:Bed Mobility Bed Mobility: Yes Bed Mobility 1 Level of Assistance 1: Partial/Mod assistance Bed Mobility To/From: Supine to sit on EOB Assistive Devices And Adaptive Equipments: Bed rail Bed Mobility 2 Level of Assistance 2: Partial/Mod assistance Bed Mobility To/From: Sitting EOB to supine Bed Mobility 3 Level of Assistance 3: Supervision/touching assistance Bed Mobility To/From: (scooting towards HOB) Bed Mobility 4 Level of Assistance 4: Independent Bed Mobility To/From: Supine to long sit Functional MobilityFunctional Mobility Functional Mobility: Pt tolerated sitting EOB using BUEs to support self x1 minute only d/t pain. Rest break. Pt then long sitting in bed x3 minutes w/ Supervision to complete g/h. RN cleared pt for EOB activity. Found supine in bed. Performed bed mobility,g/h, returned to semi-supine. Left w/ all needs met. Post Therapy Safety Checklist:Call light in reach, Nurse informed, All lines/leads intact, and Vitals signs stable Patient Education:Education Documentation Mobility Training, taught by Martita Nassar OT at 11/07/2024 2:59 PM. Learner: Patient Readiness: Acceptance Method: Explanation, Demonstration Response: Verbalizes Understanding, Demonstrated Understanding ADL Training, taught by Martita Nassar OT at 11/07/2024 2:59 PM.Learner: Patient Readiness: Acceptance Method: Explanation, Demonstration Response: Verbalizes Understanding, Demonstrated Understanding OT Home Therapy Program, taught by Martita Nassar OT at 11/07/2024 2:59 PM. Learner: Patient Readiness: Acceptance Method: Explanation, Demonstration Response: Verbalizes Understanding, Demonstrated Understanding Occupational Therapy Plan of Care, taught by Martita Nassar OT at 11/07/2024 2:59 PM. Learner: Patient Readiness: Acceptance Method: Explanation, Demonstration Response: Verbalizes Understanding, Demonstrated Understanding Education CommentsNo comments found. Goals:Encounter Goals Encounter Goals (Active) LTG - Patient will utilize adaptive techniques/equipment to dress lower body w/ mod I. Start: 11/07/24 Expected End: 11/14/24 STG - Patient tolerates sitting EOB w/ Supervision to complete g/h x10 minutes. Start: 11/07/24 Expected End: 11/14/24 STG - Transfers to toilet using RW w/ Supervision Start: 11/07/24 Expected End: 11/14/24 Treatment Note: If this is the last documented treatment, then it will signify discharge from acute care prior to discharge from the therapy service and will serve as the discharge summary. Martita Nassar OT [place] [employer] * Toby Hoyos, PT - 11/07/2024 11:25 AM LAYOUT MECHANIC Physical Therapy Encounter Note Patient Name: Eren Hodge Today's Date: 11/07/2024 Missed Treatment Time and Reason PT Orders received and chart reviewed. Noted pt. Is s/p R Knee surgical intervention for septic Right knee by Dr. Chavarria. Awaiting weight bearing clarification by ortho services. RN aware. Toby Hoyos PT [place] [employer] * Malena Stratton MD - 11/07/2024 10:21 AM LAYOUT MECHANIC [facility] ([facility]) Integrated Hospital Medicine Program Progress Note Patient:Eren Hodge LOS: 3days Date:1960 Admission Date:11/04/2024 Attending:Malena Stratton MD REASON FOR VISIT : Septic arthritis (HCC) SUBJECTIVE : Patient seen and examined bedside today, denies any hiccups today, no nausea vomiting, still pain is not well-controlled, he has not done any therapy REVIEW OF SYSTEMS : Complete 14 point review of system was assessed and is negative except for as mentioned above. PHYSICAL EXAMINATION : Visit VitalsBP 137/71 Pulse 72 Temp 36.7 ?C (98.1 ?F) Resp 17 Ht 1.626 m (5' 4.02") Wt 68.3 kg (150 lb 8.1 oz) SpO2 95% BMI 25.82 kg/m? Smoking Status Never BSA 1.76 m? PHYSICAL EXAMINATION: Physical Exam:Constitutional: Appearance: Normal appearance. HENT: Head: Normocephalic and atraumatic. Mouth/Throat: Mouth: Mucous membranes are moist. Eyes: Extraocular Movements: Extraocular movements intact. Pupils: Pupils are equal, round, and reactive to light. Cardiovascular: Rate and Rhythm: Normal rate and regular rhythm. Heart sounds: Normal heart sounds. Pulmonary: Effort: Pulmonary effort is normal. Breath sounds: Normal breath sounds. Abdominal: General: Bowel sounds are normal. Palpations: Abdomen is soft. Musculoskeletal: General: Normal range of motion. Cervical back: Normal range of motion and neck supple. Comments: Knee covered with a dressing Skin: General: Skin is warm. Neurological: General: No focal deficit present. Mental Status: He is alert. Mental status is at baseline. Psychiatric: Mood and Affect: Mood normal. Behavior: Behavior normal. CURRENT MEDICATIONS : Home Meds:No current outpatient medications Scheduled Hospital Meds:ceFAZolin, 2 g, Intravenous, q8h enoxaparin, 40 mg, Subcutaneous, q24h [START ON 11/08/2024] folic acid, 1 mg, Oral, Daily insulin glargine, 10 Units, Subcutaneous, Every evening magnesium sulfate, 2 g, Intravenous, Once metoclopramide, 10 mg, Intravenous, q8h metoprolol tartrate, 25 mg, Oral, q12h NATACHA [START ON 11/08/2024] multivitamin, 1 tablet, Oral, Daily pantoprazole, 40 mg, Intravenous, Daily sodium chloride, 10 mL, Intravenous, q12h NATACHA sodium chloride, 10 mL, Intravenous, q12h NATACHA sodium chloride 0.9 % 1,000 mL with multiple vitamin (Adult MVI) 10 mL, thiamine 100 mg, folic acid 1 mg infusion, 100 mL/hr, Intravenous, Daily [START ON 11/08/2024] thiamine, 100 mg, Oral, Daily Scheduled drips: PRN meds: PRN medications: acetaminophen, cloNIDine, dextrose, dextrose, glucagon, guaiFENesin-codeine, hydrALAZINE, HYDROcodone-acetaminophen, insulin lispro, LORazepam, morphine, ondansetron, sennosides, simethicone, sodium chloride, sodium chloride CURRENT DIET :Adult Diet Carbohydrate Controlled; Carb choice 1800 nikki INPUT/OUTPUT : Intake/Output Summary (Last 24 hours) at 11/07/2024 1021Last data filed at 11/07/2024 0214 Gross per 24 hour Intake 4345.01 ml Output 1300 ml Net 3045.01 ml ACP/ CODE STATUS : Full Code INVESTIGATION DATALABS : Results from last 7 days Lab Units 11/07/24 0522 WBC 10*3/uL 10.46* HEMOGLOBIN g/dL 11.7* HEMATOCRIT % 34.0* PLATELETS 10*3/uL 454* LYMPHOCYTES % 8.6* MONOCYTES % 13.7* Results from last 7 daysLab Units 11/07/24 0642 11/07/24 0522 SODIUM mEq/L -- 131* POTASSIUM mEq/L -- 3.4 CHLORIDE mEq/L -- 95* CO2 mEq/L -- 28.1 BUN mg/dL -- 14 CREATININE mg/dL -- 0.70 CALCIUM mg/dL -- 9.0 PROTEIN TOTAL g/dL -- 5.1* BILIRUBIN TOTAL mg/dL -- 0.39 ALK PHOS U/L -- 128* ALT U/L -- 15 AST U/L -- 14 GLUCOSE mg/dL -- 217* POC GLUCOSE mg/dL 247* -- CULTURE :No results found for the last 90 days. IMAGING :=== 11/04/24 === XR EXTERNAL STUDY === 11/04/24 === US EXTERNAL STUDY No results found for this or any previous visit from the past 365 days. ASSESSMENT AND PLAN No notes on file Assessment & PlanSeptic arthritis (HCC) Currently cefazolin based on ID recommendation, ID to decide final antibiotic therapy and duration of therapy Antipyretics and analgesics as needed Follow up blood cx, so far negative Pain control Acute sepsis ([facility]) ([facility]) Patient met sepsis criteria met continue broad-spectrum antibiotic coverage High anion gap metabolic acidosis Secondary to anion gap metabolic acidosis Positive ketones Resolved Hyperglycemia due to diabetes mellitus ([facility]/HCC) ([facility]) Controlled blood sugar, not well-controlled, add Lantus 10 units at bedtime Alcohol withdrawal ([facility]) CIWA protocol Hypomagnesemia Magnesium sulfate replaced Diabetes mellitus ([facility]) High ISS Accuchecks per protocol We will add Lantus 10 units at bedtime Hiccup Had Protonix and Reglan DVT PROPHYLAXIS : Lovenox GI PROPHYLAXIS : Protonix OTHER PROPHYLAXIS : DISPOSITION PLAN : Home REASON FOR ONGOING HOSPITALIZATION : Decision for IV antibiotic therapy athome, follow-up on culture result, Malena Stratton MDHospital Medicine [facility] [place] [employer] * Kalyan Antunez PharmD - 11/06/2024 12:48 PM LAYOUT MECHANIC Vancomycin Dosing and Monitoring Protocol - Sign-Off Note The Department of Pharmacy will no longer be managing Vancomycin therapy for this patient because: Therapy is being discontinued Thank you for allowing us to participate in the care of this patient. We will sign off for now. Please re-consult if needed. [employer] * Malena Stratton MD - 11/06/2024 12:11 PM LAYOUT MECHANIC [facility] ([facility]) Integrated Hospital Medicine Program Progress Note Patient:Eren Hodge LOS: 2days Date:1960 Admission Date:11/04/2024 Attending:Malena Stratton MD REASON FOR VISIT : Septic arthritis (HCC) SUBJECTIVE : Patient seen and examined bedside today, patient has pain in his right knee, he has he, no overnight event, he has low-grade fever and tachycardia, REVIEW OF SYSTEMS : Complete 14 point review of system was assessed and is negative except for as mentioned above. PHYSICAL EXAMINATION : Visit VitalsBP 127/81 Pulse (!) 116 Temp 37.8 ?C (100.1 ?F) Resp 18 Ht 1.626 m (5' 4.02") Wt 68.3 kg (150 lb 8.1 oz) SpO2 96% BMI 25.82 kg/m? Smoking Status Never BSA 1.76 m? PHYSICAL EXAMINATION: Physical Exam:Constitutional: Appearance: Normal appearance. HENT: Head: Normocephalic and atraumatic. Mouth/Throat: Mouth: Mucous membranes are moist. Eyes: Extraocular Movements: Extraocular movements intact. Pupils: Pupils are equal, round, and reactive to light. Cardiovascular: Rate and Rhythm: Regular rhythm. Tachycardia present. Heart sounds: Normal heart sounds. Pulmonary: Effort: Pulmonary effort is normal. Breath sounds: Normal breath sounds. Abdominal: General: Bowel sounds are normal. Palpations: Abdomen is soft. Musculoskeletal: General: Normal range of motion. Cervical back: Normal range of motion and neck supple. Comments: Right knee with a dressing Skin: General: Skin is warm. Neurological: General: No focal deficit present. Mental Status: He is alert. Mental status is at baseline. Psychiatric: Mood and Affect: Mood normal. Behavior: Behavior normal. CURRENT MEDICATIONS : Home Meds:No current outpatient medications Scheduled Hospital Meds:cefepime, 1 g, Intravenous, q6h [START ON 11/08/2024] folic acid, 1 mg, Oral, Daily metoclopramide, 10 mg, Intravenous, q8h [START ON 11/08/2024] multivitamin, 1 tablet, Oral, Daily pantoprazole, 40 mg, Intravenous, Daily sodium chloride, 10 mL, Intravenous, q12h NATACHA sodium chloride, 10 mL, Intravenous, q12h NATACHA sodium chloride 0.9 % 1,000 mL with multiple vitamin (Adult MVI) 10 mL, thiamine 100 mg, folic acid 1 mg infusion, 100 mL/hr, Intravenous, Daily [START ON 11/08/2024] thiamine, 100 mg, Oral, Daily vancomycin, 1,000 mg, Intravenous, q12h Scheduled drips:sodium bicarbonate 150 mEq in sterile water 1,150 mL infusion, 100 mL/hr, Last Rate: 100 mL/hr (11/06/24 1130) PRN meds:PRN medications: acetaminophen, cloNIDine, dextrose, dextrose, glucagon, guaiFENesin-codeine, hydrALAZINE, HYDROcodone-acetaminophen, insulin lispro, LORazepam, morphine, ondansetron, sennosides, simethicone, sodium chloride, sodium chloride, Pharmacy to dose vancomycin AND Vancomycin Pharmacy Dosing CURRENT DIET :Adult Diet Carbohydrate Controlled; Carb choice 1800 nikki INPUT/OUTPUT : Intake/Output Summary (Last 24 hours) at 11/06/2024 1212Last data filed at 11/06/2024 1130 Gross per 24 hour Intake 3027.17 ml Output 1375 ml Net 1652.17 ml ACP/ CODE STATUS : Full Code INVESTIGATION DATALABS : Results from last 7 days Lab Units 11/06/24 0748 WBC 10*3/uL 12.71* HEMOGLOBIN g/dL 12.6 HEMATOCRIT % 36.0* PLATELETS 10*3/uL 440* LYMPHOCYTES % 5.7* MONOCYTES % 8.9 Results from last 7 daysLab Units 11/06/24 1155 11/06/24 0748 11/04/24 0824 11/04/24 0725 SODIUM mEq/L -- 131* < > 133* POTASSIUM mEq/L -- 3.7 < > 4.7* CHLORIDE mEq/L -- 95* < > 101 CO2 mEq/L -- 24.1 < > 23.9 BUN mg/dL -- 13 < > 18 CREATININE mg/dL -- 0.76 < > 0.88 CALCIUM mg/dL -- 9.4 < > 8.8 PROTEIN TOTAL g/dL -- -- -- 5.8 BILIRUBIN TOTAL mg/dL -- -- -- 0.67 ALK PHOS U/L -- -- -- 203* ALT U/L -- -- -- 34 AST U/L -- -- -- 41* GLUCOSE mg/dL -- 242* < > 312* POC GLUCOSE mg/dL 256* -- < > -- < > = values in this interval not displayed. CULTURE :No results found for the last 90 days. IMAGING :=== 11/04/24 === XR EXTERNAL STUDY === 11/04/24 === US EXTERNAL STUDY No results found for this or any previous visit from the past 365 days. ASSESSMENT AND PLAN No notes on file Assessment & PlanSeptic arthritis ([facility]) IV antibiotics with cefepime and vancomycin ID consult for antibiotic selection and duration Antipyretics and analgesics as needed Follow up blood cx Pain control Acute sepsis ([facility]) ([facility]) Patient met sepsis criteria met continue broad-spectrum antibiotic coverage High anion gap metabolic acidosis Secondary to anion gap metabolic acidosis Positive ketones Resolved Hyperglycemia due to diabetes mellitus ([facility]) ([facility]) Controlled blood sugar, not well-controlled, add Lantus 10 units at bedtime Alcohol withdrawal ([facility]) CIWA protocol Hypomagnesemia Magnesium sulfate replaced Diabetes mellitus ([facility]) High ISS Accuchecks per protocol We will add Lantus 10 units at bedtime Hiccup Had Protonix and Reglan DVT PROPHYLAXIS : Lovenox GI PROPHYLAXIS : Protonix OTHER PROPHYLAXIS : DISPOSITION PLAN : Home REASON FOR ONGOING HOSPITALIZATION : Follow-up on culture, continue antibiotic therapy, Malena Stratton MDHospital Medicine [facility] [place] [employer] * Kalyan Antunez, PharmD - 11/06/2024 10:46 AM LAYOUT MECHANIC Clinician Notes: Bone/Joint Infection;Dr. Klein Start date: 11/04 (day 3 of 5) 1comp Dose: Vanc 1 gm q12h Level: 11/07 @ 08:00 MRSA PCR negative Pending ID consult Recommended Dose: 1000 mg IV over 1 hour every 12 hours for 2 days Next Dose At: 11:00 on Nov 06 2024 Dosing Interval: 12 hours Infusion Length: 1 hours Dose Valid For: 2 days only Dose Recommendation Method: Individualized model Target Outcome: AUC24: 450 mcg.h/mL Predicted Outcome: AUC24: 452.84 mcg.h/mL Predicted Peak: 28.2 mcg/mL Predicted Trough: 11.7 mcg/mL Predicted AUC24: 452.8 mcg.h/mL Predicted AUC12: 226.4 mcg.h/mL Most Recent Dose: 1000 mg over 1 hours at 03:02 on Nov 05 2024 Most Recent SCr: 0.76 mg/dL at 07:48 on Nov 06 2024 Most Recent Blood Concentration: 3.3 mcg/mL at 07:48 on Nov 06 2024 Peak: 27.2 mcg/mL Trough: 2.2 mcg/mL AUC24: 270 mcg.h/mL AUC32: 360 mcg.h/mL [place] [employer] * Mallory Gaston - 11/05/2024 2:41 PM LAYOUT MECHANIC Spiritual Care Subjective Rate Reviewer attempted visit but found Mr Hodge fast asleep. Rate Reviewer left note encouraging Mr. Hodge to request a follow-up if desired. Reason For Visit Care Recipient: Patient not available Time spent: Other (Comment) (5 minutes) Reason for Visit: Admission request Referral From: Nurse Interventions Relationship Building Interventions: Left written note for care recipient [employer] * Jazmine Meadows MD - 11/05/2024 1:29 PM LAYOUT MECHANIC [facility] ([facility]) Integrated Hospital Medicine Program Progress Note Patient:Eren Hodge LOS: 1daysBirth Date:1960 Admission Date:11/04/2024 Attending:Jazmine Meadows* SubjectiveNo acute events overnight. The patient complains of knee pain and states that he wants to go home. I discussed with the patient his pain medication regimen. He encouraged to alternate analgesics as needed. He verbalized understanding. Assessment & Plan: Assessment & PlanSeptic arthritis (HCC) IV antibiotics with zosyn ID consult Antipyretics and analgesics as needed Follow up blood cx Acidemia Secondary to anion gap metabolic acidosis Positive ketones Continue aggressive blood sugar control Start IV fluids with bicarb Repeat BMP at 6 pm Diabetes mellitus ([facility]) High ISS Accuchecks per protocol Alcohol withdrawal (HCC) CIWA protocol Hyperglycemia due to diabetes mellitus ([facility]/HCC) ([facility]) DVT prophylaxis: This patient does not have an active medication from one ofthe medication groupers. Current Diet: NPO Diet CODE Status: No Order Disposition Anticipated: 3 midnights Current Medications: Current Facility-Administered Medications:acetaminophen (Tylenol) tablet 650 mg, 650 mg, Oral, q6h PRN, Duncan Klein MD, 650 mg at 11/04/24 2218 cefepime (Maxipime) 1 g in sterile water injection, 1 g, Intravenous, q8h, Duncan Klein MD, 1 g at 11/05/24 1133 cloNIDine (Catapres) tablet 0.1 mg, 0.1 mg, Oral, 4x daily PRN, Duncan Klein MD dextrose 10 % infusion 125 mL, 125 mL, Intravenous, PRN, Duncan Klein MD dextrose 10 % infusion 250 mL, 250 mL, Intravenous, PRN, Duncan Klein MD folic acid (Folvite) tablet 1 mg, 1 mg, Oral, Daily, Duncan Klein MD, 1 mg at 11/04/24 0904 glucagon injection 1 mg, 1 mg, Intramuscular, PRN, Duncan Klein MD guaiFENesin-codeine (Robitussin-AC) 100-10 MG/5ML solution 5 mL, 5 mL, Oral, q6h PRN, Duncan Klein MD hydrALAZINE injection 10 mg, 10 mg, Intravenous, q6h PRN, Duncan Klein MD HYDROcodone-acetaminophen ([place]) 10-325 MG per tablet 1 tablet, 1 tablet, Oral, q6h PRN, Duncan Klein MD, 1 tablet at 11/04/24 1759 insulin lispro (Humalog, Admelog) injection 2-8 Units, 2-8 Units, Subcutaneous, q6h PRN, Duncan Klein MD, 4 Units at 11/04/24 1301 LORazepam (Ativan) injection 1 mg, 1 mg, Intravenous, q2h PRN, Duncan Klein MD, 1 mg at 11/05/24 1141 morphine PF injection 2 mg, 2 mg, Intravenous, q4h PRN, Duncan Klein MD, 2 mg at 11/05/24 1133 multivitamin (Theragran-M) tablet 1 tablet, 1 tablet, Oral, Daily, Duncan Klein MD, 1 tablet at 11/04/24 0904 ondansetron (Zofran) injection 4 mg, 4 mg, Intravenous, q8h PRN, Duncan Klein MD, 4 mg at 11/05/24 0800 pantoprazole (ProtoNix) 40 mg in sodium chloride (PF) 0.9 % 10 mL IVP, 40 mg, Intravenous, Daily, Nieshaadelaida Dao, DO, 40 mg at 11/05/24 0349 sennosides (Senokot) tablet 8.6 mg, 1 tablet, Oral, BID PRN, Duncan Klein MD simethicone (Mylicon) chewable tablet 80 mg, 80 mg, Oral, q6h PRN, Andria Covington NP sodium bicarbonate 150 mEq in sterile water 1,150 mL infusion, 100 mL/hr, Intravenous, Continuous, Jazmine Meadows MD sodium chloride (NS) 0.9 % flush 10 mL, 10 mL, Intravenous, q12h NATACHA, Duncan Klein MD, 10 mL at 11/04/242039 sodium chloride (NS) 0.9 % flush 10 mL, 10 mL, Intravenous, PRN, Duncan Klein MD sodium chloride (NS) 0.9 % flush 10 mL, 10 mL, Intravenous, q12h NATACHA, Duncan Klein MD, 10 mL at 11/04/242038 sodium chloride (NS) 0.9 % flush 10 mL, 10 mL, Intravenous, PRN, Duncan Klein MD thiamine (Vitamin B-1) tablet 100 mg, 100 mg, Oral, Daily, Duncan Klein MD, 100 mg at 11/04/24 0904 [START ON 11/06/2024] vancomycin 1.5-5 GM/300ML-% IVPB (premix), 1,500 mg, Intravenous, q24h, Duncan Klein MD Pharmacy to dose vancomycin, , , Once AND Vancomycin Dosing per Pharmacy, 1 each, Does not apply, PRN, Duncan Klein MD Objective Vitals:11/05/24 0930 11/05/24 1100 11/05/24 1204 11/05/24 1204 BP: 148/78 136/77 143/74 Pulse: (!) 115 102 107 Resp: 15 Temp: SpO2: 97% 93% Intake/Output Summary (Last 24 hours) at 11/05/2024 1329Last data filed at 11/05/2024 0900 Gross per 24 hour Intake 1252.5 ml Output 1200 ml Net 52.5 ml PHYSICAL EXAMINATION:General: in moderate distress HEENT: NCAT, moist mucous membrane Chest: Good breath sounds bilaterally, no chest wall tenderness Heart: Normal S1, S2, regular rate Abdomen: Soft, nontender, nondistended Extremities: right knee tenderness ResultsLABORATORY DATA: Pertinent Labs : Lab Results Component Value Date WBC 17.16 (H) 11/05/2024 Hgb 13.1 11/05/2024 Hct 39.5 11/05/2024 Plt Count 454 (H) 11/05/2024 Lab ResultsComponent Value Date Sodium Lvl 132 (L) 11/05/2024 Potassium Lvl 3.9 11/05/2024 Chloride Lvl 100 11/05/2024 CO2 Lvl 24.5 11/05/2024 BUN 17 11/05/2024 Creatinine Lvl 0.90 11/05/2024 Glucose Lvl 235 (H) 11/05/2024 POC Glu 261 (H) 11/05/2024 Lab ResultsComponent Value Date Calcium Lvl 9.0 11/05/2024 Magnesium 1.74 11/04/2024 Phosphorus Lvl 3.4 11/04/2024 Lab ResultsComponent Value Date AST 41 (H) 11/04/2024 ALT 34 11/04/2024 Alkaline Phosphatase 203 (H) 11/04/2024 RADIOLOGY DATA:XR external study This order has been auto-finalized and does not contain a result. US external study This order has been auto-finalized and does not contain a result. US external study This order has been auto-finalized and does not contain a result. US external study This order has been auto-finalized and does not contain a result. XR knee 3 views right Narrative: PROCEDURE INFORMATION: Exam: XR Right Knee Exam date and time: 11/04/2024 5:25 PM Age: 64 years old Clinical indication: Knee effusion TECHNIQUE:Imaging protocol: Radiologic exam of the right knee. Views: 3 views. AP Obilque Lateral COMPARISON:No relevant prior studies available. FINDINGS:Bones/joints: No acute bony fracture or joint dislocation is seen. 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 Lobulated loose body posterior to the knee is seen. Chondrocalcinosis of the knee is seen. Soft tissues: There are no radiopaque foreign bodies. Vasculature: Arterial calcifications are present. Notes: If there is further concern, recommend follow-up radiographs or MRI for complete assessment. Impression: 1. Advanced degenerative change of the right knee without acute bony abnormality. 2. Large joint effusion. ELECTRONICALLY SIGNED BY MAXIMO DONG MD ON 11/04/2024 AT 18:07. MICROBIOLOGY:No results found for the last 90 days. Jazmine Meadows MD[facility] [place] [facility] * Kalyan Antunez PharmD - 11/05/2024 1:21 PM LAYOUT MECHANIC Clinician Notes: 11/05 HHN Bone/Joint Infection; Dr. Klein Start date: 11/04 (day 2 of 5) 1comp Dose: Vanc 1500mg q24h Level: 11/06 @ 06:00 MRSA PCR negative Recommended Dose: 1500 mg IV over 1.5 hours every 24 hours for 4 days Next Dose At: 09:00 on Nov 06 2024 Dosing Interval: 24 hours Infusion Length: 1.5 hours Dose Valid For: 4 days only Dose Recommendation Method: Clinician-selected dose (Individualized model) Predicted Peak: 33.7 mcg/mL Predicted Trough: 7.8 mcg/mL Predicted AUC24: 430.9 mcg.h/mL Most Recent Dose: 1000 mg over 1 hours at 03:02 on Nov 05 2024 Most Recent SCr: 0.98 mg/dL at 04:26 on Nov 05 2024 Most Recent Blood Concentration: 28.4 mcg/mL at 04:26 on Nov 05 2024 Peak: 27.3 mcg/mL Trough: 4.2 mcg/mL AUC24: 300 mcg.h/mL AUC30: 375 mcg.h/mL [place] [employer] * Jamila Nugent PharmD - 11/04/2024 2:36 PM LAYOUT MECHANIC Clinician Notes: Vancomycin Dosing and Monitoring Protocol - Initial Consult Note Consulting Physician: Duncan Klein Indication for Vancomycin: Bone/Joint Infection AUC Goal: 400 - 600 mg h/L Vancomycin Start Date: 11/04/2024 (pt received vancomycin 1 gm in outside facility at 02:00 am today as per RN) Duration: 5 days Plan: Vancomycin 1000 mg every 12 hours Next level: AM labs MRSA PCR: Ordered Thank you for allowing us to participate in the care of this patient. We will continue to monitor and adjust vancomycin therapy as needed. Recommended Dose: 1000 mg IV over 1 hour every 12 hours for 2 days Next Dose At: 16:00 on Nov 04 2024 Dosing Interval: 12 hours Infusion Length: 1 hours Dose Valid For: 2 days only Dose Recommendation Method: Population model Target Outcome: AUC24: 450 mcg.h/mL Predicted Outcome: AUC24: 424.92 mcg.h/mL Predicted Peak: 25 mcg/mL Predicted Trough: 11.9 mcg/mL Predicted AUC24: 424.9 mcg.h/mL Predicted AUC12: 212.5 mcg.h/mL [facility]2024-12-20 14:28:41Pending Results Scheduled Orders Name Type Priority Associated Diagnoses Orde r Schedule POCT Glucose Point of Care Testing - Docked Device Routine Every 15 minutes as needed until discontinued starting 11/04/2024 POCT Glucose Point of Care Testing - Docked Device Routine 3 times daily before meals (Lab) for 30 Days starting 11/05/2024 until 12/05/2024, 10 completed Scheduled Referrals Name Type Priority Associated Diagnoses Orde r Schedule Ambulatory referral to Home Health Outpatient Referral Routine Streptococcal arthritis of knee, unspecified laterality (CMS/HCC) (HCC) Expected: 11/09/2024 (Approximate), Expires: 11/09/2025 Health Maintenance Due Date Last Done Comments CT Colonography 1960 Colonoscopy 1960 Colorectal Cancer Screening 1960 FIT-DNA 1959 FIT 1959 FOBT 1960 Lipid Panel 1960 Medicare Initial Physical (IPPE) 1960 Sigmoidoscopy 1959 Annual Physical 1962 Pneumococcal Vaccine: 65+ Ye ars (1 of 2 - PCV) 1965 Diabetes: Foot Exam 1969 Diabetes: Retinopathy Screening 1969 DTaP/Tdap/Td Vaccines (1 - Tdap) 1978 Diabetes: Urine Protein Screening 1978 Zoster Vaccines (1 of 2) 2009 Respiratory Syncytial Virus (RSV) or >=60 (1 - Risk 60-74 years 1-dose series) 2019 Influenza Vaccine (#1) 2024 Diabetes: Hemoglobin A1C 05/05/2025 11/04/2024 HIB Vaccines Aged Out No longer eligi ble based on patient's age to complete this topic HPV Vaccines Aged Out No longer eligi ble based on patient's age to complete this topic Hepatitis A Vaccines Aged Out No long er eligible based on patient's age to complete this topic Hepatitis B Vaccines Aged Out No long er eligible based on patient's age to complete this topic IPV Vaccines Aged Out No longer eligi ble based on patient's age to complete this topic Meningococcal Vaccine Aged Out No manuel luis eligible based on patient's age to complete this topic Rotavirus Vaccines Aged Out No longer eligible based on patient's age to complete this topic [id number]:28:41 [id number] 14:28:41 Diagnosis Septic arthritis (HCC) - Primary Pyogenic arthritis, site unspecified Streptococcal arthritis of k nee, unspecified laterality (CMS/HCC) (HCC) Diabetes mellitus (HCC) Type II or unspecified type diabetes mellitus without mention of complication, not stated as uncontrolled Alcohol withdrawal (HCC) Alcohol withdrawal Hyperglycemia due to diabete s mellitus (CMS/HCC) (HCC) High anion gap metabolic aci dosis Hypomagnesemia Disorders of magnesium metabolism Acute sepsis (CMS/HCC) (HCC) Hiccup Hiccough Hypokalemia Hypopotassemia [id number] 14:28:41 [place] [id number] 13:09:39 Images from the original note were not included. Hydrocodone and Acetaminophen - Video Understand how Hydrocodone and Acetaminophen work to help you manage pain. Also, understand the possible side effects to be aware of and how to properly use and store these medications. To view the video go to this web address: https://bit.ly/[email or web address] Or, scan this QR code with your smart phone ? [facility]2024-12-20 13:09:30 Images from the original note were not included. [id number] AC Arthritis (Acromioclavicular Arthritis) Arthritis is a type of damage to a joint that can cause inflammation. AC arthritis affects the acromioclavicular (AC) joint. This joint joins the shoulder blade (scapula) and the collarbone (clavicle). The joint has ligaments and cartilage. Various things can inflame the area around the joint. The damage is done by wear and tear over time or other causes. It can lead to pain, swelling, and a stiff feeling in the joint. This can limit a person?s range of motion. AC arthritis is fairly common in older adults. What causes AC arthritis? AC arthritis can be caused by: ? Osteoarthritis. This happens from gradual wear and tear. Over time, the outer cartilage of the joint is worn away. That causes the bones of the joint to scrape together. It leads to stiffness, limited motion, pain, and inflammation. ? Rheumatoid arthritis (RA). This is an autoimmune disorder. It occurs when the immune system attacks the lining of the joint. This leads to pain, limited motion, and inflammation. ? Injury to the joint. This can be a break (fracture) or a shoulder separation. For example, a shoulder separation damages the ligaments around the AC joint. The bones may no longer line up right. They may also scrape against each other. This can cause inflammation, limited motion, and pain. ? Bacterial infection of the joint. This can cause sudden and severe inflammation of the joint. Certain things may raise your risk for AC arthritis. These include: ? Older age ? Arthritis in other joints ? Family history of arthritis ? Injury of your AC joint in the past ? A history of AC joint overuse ? A weak immune system, which raises the risk for joint infection ? Use of illegal IV (intravenous) medicines, which raises the risk for joint infection Symptoms of AC arthritis In most cases, the symptoms of AC arthritis start slowly and get worse with time. Some common symptoms include: ? Pain at the top of the shoulder that may spread to the side of the neck ? Snapping or clicking sound as you move your shoulder ? Limited range of motion, such as when lifting up your arm Your symptoms might get worse with certain activities that use the joint. For example, lifting something over your head might cause pain. Crossing your arm in front of your body might hurt. Over time, the joint pain may even keep you from sleeping well at night, especially when you lie on that shoulder. Many people who have AC arthritis have symptoms in other joints or parts of the body. For example, if you have osteoarthritis, you may also have arthritis of your fingers, knees, or hips. People with RA also often get symptoms in several joints. If you have RA, you may have problems with other organs, such as your heart and lungs. And a person with a joint infection may have very sudden symptoms with fever and a lot of swelling. Diagnosing AC arthritis AC arthritis can be diagnosed by your primary healthcare provider. Or it may be diagnosed by an orthopedic healthcare provider or magneto repairer. Your provider will ask about your health history and your symptoms. They will give you a physical exam. This will include a careful exam of the shoulder, arm, and collarbone. It will likely include a test of your range of motion, your strength, and joint pain. Your healthcare provider may check your whole body for joint problems. Your healthcare provider may also order imaging tests. These are to help diagnose the cause of your arthritis and to see how bad it is. An X-ray is the most common first test. You may also need other tests, such as: ? Bone scan, to get more information ? MRI, if more detail is needed ? Injection of a pain medicine or steroid in the joint (diagnostic injection) ? Ultrasound of the joint, often done at the same time as a diagnostic injection Treatment for AC arthritis Your healthcare provider may advise these treatments for your AC arthritis: ? Changing the way you move your arm to prevent pain ? Taking ewpp-vac-feqahpt pain medicines ? Doing physical therapy exercises ? Icing your shoulder a couple of times a day ? Taking a medicine to treat rheumatoid arthritis, if you have RA ? Having corticosteroid injections in the joint to ease inflammation If you still have bad symptoms after trying other treatments, your healthcare provider may talk with you about surgery. An orthopedic healthcare provider might advise a surgery called distal clavicle resection. This surgery takes out a small amount of bone from the end of the collarbone. The bone then no longer scrapes the other bones of the joint. Your healthcare provider may do this through a small cut or incision, using small tools and a tiny camera. Talk with your healthcare provider about the benefits and risks of this surgery. Last Reviewed Date: 2024 00:00:00 ? 9816-2355 [employer]. All rights reserved. This information is not intended as a substitute for professional medical care. Always follow your healthcare professional's instructions. [place] 44428-12-19 13:31:09 The patient is Moderately Stable - Low risk of patient condition declining or worsening The patient's goals for the shift include PT/OT The clinical goals for the shift include Pain management [place] [id number] 16:32:03 The patient is Moderately Stable - Low risk of patient condition declining or worsening The patient's goals for the shift include pain control The clinical goals for the shift include pain control [place] [id number] 10:45:10 The patient is Moderately Stable - Low risk of patient condition declining or worsening The patient's goals for the shift include pain management The clinical goals for the shift include pain control [place] [id number] 00:30:00 The patient is Moderately Stable - Low risk of patient condition declining or worsening The patient's goals for the shift include pain control The clinical goals for the shift include pain control Over the shift, the patient did not make progress toward the following goals. Barriers to progression include pain . Recommendations to address these barriers include administer pain medications as ordered . [place] [id number] 22:00:00 The patient is Moderately Stable - Low risk of patient condition declining or worsening The patient's goals for the shift include go home The clinical goals for the shift include I&D Over the shift, the patient did not make progress toward the following goals. Barriers to progression include pain . Recommendations to address these barriers include pain management. [place] [id number] 15:41:38 The patient is Moderately Stable - Low risk of patient condition declining or worsening The patient's goals for the shift include go home The clinical goals for the shift include I&D [place] [id number] 11:19:18 The patient is Moderately Stable - Low risk of patient condition declining or worsening The patient's goals for the shift include to go home The clinical goals for the shift include pain control [place] 761494-12-17 03:13:41 The patient is Moderately Stable - Low risk of patient condition declining or worsening The patient's goals for the shift include pain management The clinical goals for the shift include pain management Over the shift, the patient did not make progress toward the following goals. Barriers to progression include . Recommendations to address these barriers include . [place] [id number] 20:11:26 Requested a diet for this pt, as per md, pt is too drowsy to eat and pt blood sugar is still elevated. [place] [id number] 19:29:02 The patient is Moderately Stable - Low risk of patient condition declining or worsening The patient's goals for the shift include to go home The clinical goals for the shift include to have surgery [place] 44428-12-16 03:41:02 The patient is Moderately Unstable - Medium risk of patient condition declining or worsening The patient's goals for the shift include to go home The clinical goals for the shift include to have surgery Over the shift, the patient did not make progress toward the following goals. Barriers to progression include . Recommendations to address these barriers include . [place] [id number] 21:37:40 Problem: Knowledge Deficit Goal: Patient/family/caregiver demonstrates understanding of disease process, treatment plan, medications, and discharge instructions Outcome: Ongoing Problem: Potential for Falls Goal: I will remain free of falls Outcome: Ongoing The patient is Moderately Stable - Low risk of patient condition declining or worsening The patient's goals for the shift include to go home The clinical goals for the shift include to have surgery [facility]2024-12-15 16:31:37 The patient is Moderately Stable - Low risk of patient condition declining or worsening The patient's goals for the shift include to go home The clinical goals for the shift include pain control Over the shift, the patient did not make progress toward the following goals. Barriers to progression include . Recommendations to address these barriers include . [place] [id number] 09:26:20 The patient is Moderately Stable - Low risk of patient condition declining or worsening The patient's goals for the shift include The clinical goals for the shift include Over the shift, the patient did not make progress toward the following goals. Barriers to progression include . Recommendations to address these barriers include . [place] [id number] 07:03:57 Pt arrived to unit from [facility] in stable condition. Pt instructed on fall precautions and safety protocols. Bed alarm and fall risk band in place; pt placed in yellow socks. notified. [facility] 07:59:[id number] [facility] [address] [address] PATIENT NAME: EREN HODGE ADMIT DATE: 05/25/22 ACCOUNT NO: [id number] ROOM NO: Y.O17 AGE: 61 REPORT TYPE: DISCHARGE SUMMARY REPORT SEX: M ADMITTING PHYSICIAN:Manish Styles MD ATTENDING PHYSICIAN:Manish Styles MD ADMISSION DATE: 05/25/2022 DISCHARGE DATE: 05/26/2022 DISMISSING HOSPITALIST SERVICE: Orthopedic Surgery. REASON FOR HOSPITALIZATION: Right shoulder pain. HISTORY OF PRESENT ILLNESS: Please see the history and physical. HOSPITAL COURSE: The patient underwent reverse total shoulder arthroplasty on May 25. Postoperatively, the patient progressed well. Drain output steadily decreased. This was removed on postoperative day #1. He was transitioned from IV to an oral medication regimen. Internal medicine hospitalist consultation was obtained to monitor medical conditions including anemia of acute blood loss and hypertension postoperatively. On postoperative day #1, his pain was controlled with oral medication regimen, tolerating a regular diet, and voiding spontaneously. He was determined to be stable to be discharged. FINAL DIAGNOSIS: Repaired right shoulder rotator cuff tear. ADDITIONAL DIAGNOSES: Anemia of acute blood loss and hypertension. INSTRUCTIONS TO THE PATIENT ON DISCHARGE AND PHYSICAL ACTIVITY: Keep his sling in place at all times, keep incision covered and dry. Follow his written discharge instructions. Follow up in 10 to 14 days, earlier if necessary. He is to otherwise, resume all prehospitalization medications. Dictated By: Manish Styles MD WT: DS:HEIKE/CARMEN/EMILEE Conf#: [id number]/DID#: [id number] Authenticated by Manish Styles MD On 06/14/2022 07:37:44 AM at 0737 PATIENT NAME: EREN HODGE 09:31:00 [facility] ([facility]) Clinical Note REPORT#:[id number] REPORT STATUS: Signed DATE:05/26/22 TIME: 930 PATIENT: EREN HODGE UNIT #: [id number] ROOM/BED: Y.O17-A : 59 AGE: 61 SEX: M ATTEND: Manish Styles MD ADM AUTHOR: Ruslan Beckford MD * ALL edits or amendments must be made on the electronic/computer document * Clinical Note Note: [facility] Ruslan Donohue M.D. (cell text [phone]) Assessment/Plan 1.) Anemia of acute blood loss- . asymptomatic. 2.) S/p Right RSA- .acute multi-modal pain control and followup. Anticoagulation as per Dr. Styles. 3.) Hypertension- .follow BP and hold Rxs if SBP<120. 4.) Diabetes-2 OsteoArthritis- .continue on Rx. * OK for DISCHARGE per Internal Medicine. Prior Events/Overnight: Uneventful. Chief Complaint: No significant complaints. Objective Vital Signs Date Temp Pulse Resp B/P B/P Mean Pulse Ox FiO2 05/25-05/26 96.1-97.9 78-97 13-20 118-159/65-91 96.6-107.2 95-100 28-32 Gen: Alert, oriented, in mild discomfort Neck: No Masses, No Thyromegaly- CV: Regular Rate Rhythm / Edema- no significant Resp: Clear To Ascultation / Normal Respiratory Effort ABD: NonTender / NonDistended MS/Skin: No sign of compartment syndrome / +ankle DF/PF Other: Labs/X-ray: Laboratory Tests: 05/26 05/25 05/25 05/25 0453 1741 1219 1054 Chemistry POC Glucose (60 - 125 mg/dL) 338 H 234 H 228 H 308 H Ruslan Donohue M.D. at 1125 RPT #:[id number] END OF REPORT [id number] 07:52:00 [facility] ([facility]) Clinical Note REPORT#:[id number] REPORT STATUS: Signed DATE:05/26/22 TIME: 751 PATIENT: EREN HODGE UNIT #: [id number] ROOM/BED: [address] : 58 AGE: 61 SEX: M ATTEND: Manish Styles MD ADM AUTHOR: Manish Styles MD * ALL edits or amendments must be made on the electronic/computer document * Clinical Note Note: BLOCK HAS WORN OFF AF VSS; HVAC 13ML R UE: DSG C/D/I; +POST DELT/EPL/FDP-IF/FDI; LIGHT TOUCH INTACT AX/R/U/M XR: SATISFACTORY ALIGNMENT S/P R RSA APPRECIATE CONSULTANTS' ASSISTANCE PT ABLE DVT PROPH D/C DRAIN D/C HOME FINAL DX: SAME POSTOP DX SIGNIFICANT FINDINGS: ABOVE TREATMENT RENDERED: ABOVE CONDITION: STABLE DISPOSITION: HOME F/U 10-14 DAYS ADDITIONAL INSTRUCTIONS PER D/C SHEET at 0753 RPT #:[id number] END OF REPORT [id number] 19:32:00 [facility] ([facility]) Clinical Note REPORT#:[id number] REPORT STATUS: Signed DATE:05/25/22 TIME: 1931 PATIENT: EREN HODGE UNIT #: [id number] ROOM/BED: [address] : 58 AGE: 61 SEX: M ATTEND: Manish Styles MD ADM AUTHOR: Ruslan Beckford MD * ALL edits or amendments must be made on the electronic/computer document * Clinical Note Note: [facility] Ruslan Donohue MD (cell text [phone]) Internal Medicine Consult at request of : Dr Manish Styles Chief Complaint: right shoulder pain HPI: 61yo M is now s/p Right reverse Total Shoulder Arthroplasty (RSA) by Dr. Styles. Mr. Hodge relates progressive right shoulder pain (recently severe), worse with activity, and with restricted motion at times in quality. He has failed conservative management. Comorbidities: see below. PmHx: Type 2 diabetes, hypertension, osteoarthritis ALLERGY: Allergies: No Known Allergies (Coded, 07/16/21) Home Medications: Home Medications: IBUPROFEN (ADVIL) 400 MG PO Q8H PRN PRN PAIN MULTIVITAMIN (MULTIPLE VITAMIN) 1 TAB PO DAILY ZINC GLUCONATE 50 MG PO DAILY ACETAMINOPHEN (TYLENOL) 500 MG PO Q4H PRN PRN PAIN metFORMIN (GLUCOPHAGE) 500 MG PO BID ASPIRIN EC (ECOTRIN) 81 MG PO DAILY SgHx: .Right knee, right RCR, right testicle, right shoulder SHx: Tob: none FHx: .No significant hx of DVT/PE. Alcohol: 1-2/daily Drugs: none Lives: alone . . Vitals: Vital Signs Date Temp Pulse Resp B/P B/P Mean Pulse Ox FiO2 / 97.3-97.9 82-97 13-20 118-159/65-91 107.2 98-100 Gen: Alert, in mild discomfort. EYE: Nl lids conjunctiva. ENT: Nl ears Nose, nl lips,. Neck: Supple, nl thyroid, No masses. CV: Regular Rate Rhythm, no heave or significant murmur. Edema- none RESP: Clear to Auscultation, normal Respiratory effort. ABD: Soft, NonDistended,. LYM: No significant cervical Lymphadenopathy. MS: No sign of compartment syndrome, shoulder dressing is dry intact, elevated in sling. NEURO: partial movement of fingers . . Preop Labs(05/17/22): CBC:. Hgb 14.1, Plt 324, CHEM: Na 136, K 4.3, Cr 0.84(eGFR 92.6%), . Ekg: NSR . (medium to high risk of complications or morbidity) (major surgery) (IV sedative, meds) . Assessment Plan 1.) Anemia of Acute Blood Loss- .will recheck tomorrow. 2.) S/p Right RSA- .acute multi-modal pain control and followup. Anticoagulation as per Dr. Styles. 3.) Hypertension- .follow BP and hold Rxs if SBP<120. 4.) Diabetes-2 OsteoArthritis- .continue on Rx. . Ruslan Donohue M.D. Thanks! . . . . G8417 BMI documented as above normal parameters and a f/u plan is documented G8491 - current medications obtained and reviewed. 1124F - offered discussion on advanced care plan and patient declined to address issue at this time. at [address] [facility] #:[id number] END OF REPORT [id number] 17:58:[id number] [facility] [place] [address] PATIENT NAME: EREN HODGE ADMIT DATE: 05/25/22 ACCOUNT NO: [id number] ROOM NO: Y.O17 AGE: 61 REPORT TYPE: OPERATIVE REPORT SEX: M ADMITTING PHYSICIAN:Manish Styles MD ATTENDING PHYSICIAN:Manish Styles MD OPERATION DATE: 05/25/2022 PREOPERATIVE DIAGNOSIS: Irreparable right shoulder rotator cuff tear. POSTOPERATIVE DIAGNOSIS: Irreparable right shoulder rotator cuff tear. PROCEDURE PERFORMED: Reverse right total shoulder arthroplasty. SURGEON: Manish Styles MD MEDICAL STAFFING COORDINATOR: Ingris Jose MD. Dr. Jose, property management assistant, was medically necessary for the procedure. His assistance allowed me to operate with two hands freely. He assisted with arm positioning, suture management, and implant placement. For this, he is medically necessary. ANESTHESIA: General with a block. DESCRIPTION OF FINDINGS AND INDICATIONS FOR PROCEDURE: The patient is a 61-year-old male who sustained a work-related injury to his right shoulder. Clinical and radiographic evaluation is consistent with a irreparable rotator cuff tear. He failed exhaustive measures. He was counseled as to the risks and benefits of the recommended treatment of operative intervention including but not limited to bleeding, infection, neurovascular injury, persistent pain, need for additional procedure, loss of function, recurrence of his condition, need for revision arthroplasty as well as anesthetic risks including but not limited to change in blood pressure, deep venous thrombosis, pulmonary embolism, heart attack, stroke, or . The patient voiced understanding and wished to proceed. PROCEDURE IN DETAIL: After obtaining informed consent, the right shoulder was marked by me in the preoperative holding area. The patient underwent preoperative block. He was brought to the operating room suite where satisfactory anesthesia was established by the anesthesia service. The patient was placed in the low beachchair position on operating room table and all bony prominences were well padded. Right upper extremity was prepped and draped in sterile fashion and sterile drapes were applied. Timeout was called prior to commencing the procedure verifying the correct site and correct side. The patient received preoperative antibiotics within 1 hour of commencing of procedure. At this point, skin incision was made centered over anterior aspect of the shoulder for a standard deltopectoral approach. Dissection carried through skin and subcutaneous tissue. Bovie cautery was used to maintain hemostasis. Cephalic vein was visualized and distracted laterally. PATIENT NAME: EREN HODGE Clavipectoral fascia was incised. Conjoined tendon retracted medially. Stay suture was placed in subscapularis which was poor quality tissue. Rotator interval was opened. Sharp knife was utilized to elevate the anterior capsular structures. Progressive external rotation with electrocautery along the inferior border of the humeral head did allow for satisfactory anterior release, humerus was then dislocated. A Trillat retractor was then placed. Arm was placed in internal rotation. Anterior releases were performed. The subscapularis tissue was able to be mobilized; however, this was of poor quality. After this had been released, labrum was resected anteriorly. Attention turned back to the proximal humerus. Humeral head cutting guide was placed, set at 30 degrees of retroversion. This was malleted in place superiorly. This was marked along with electrocautery. A reciprocating saw was utilized to establish the head cut. After this was started, a head cutting guide was removed. This was then completed and a canal seeker was utilized followed by reamers, followed by broaches up to a size 7, most appropriate neck cut was 7C. A humeral head cut protector was brought into place. After the peripheral reamer was then utilized, attention was turned back to the glenoid. Aiming guide was placed centrally. A guidepin was drilled. Bone was significantly sclerotic. There was slight retroverted nature of the glenoid. After the guidepin was drilled, followed by the peripheral reamer, the boss pin was then drilled, followed by predrilling the cannulated screw. This measured most appropriately size 40. Osteotomes and rongeurs were utilized to resect osteophytes anteriorly as well as inferiorly. A 36 x 25 standard baseplate was brought into place with the central 40 mm screw. This was placed without difficulty with excellent purchase. Peripheral anterior and posterior screws were bicortical in nature, both measured 14, inferior was a size 30, superior was 32. All were placed without difficulty. A peripheral reamer was utilized to clear the adjacent remaining osteophytes. A 2-mm inferior offset glenosphere was brought into place, this was 36 x 25, this was malleted into place with the center screw being tightened. At this point, attention was turned back to the proximal humerus. High offset index 6 tray was placed. With complete neuromuscular blockade, a 9-mm poly was able to be seated, which had satisfactory tension both distally as well as laterally, no evidence of impingement. Trials were removed. The implant was assembled on the back table and was malleted into place, appropriate version. The 9-mm poly was inserted without difficulty. Wounds were copiously irrigated. Glenohumeral joint was reduced. Drain was brought out proximally and sewn into place with 3-0 nylon suture. One gram vancomycin powder was placed along the deltopectoral interval. Wound closure then commenced. Deep closure performed using 0 Vicryl, superficial closed using 2-0 Vicryl, and skin was closed with running 3-0 Monocryl. Sterile dressings of Steri-Strips, Xeroform, 4 x 4's were applied and was secured with ABD and tape. He was placed in UltraSling, tolerated the procedure well, was extubated, transferred to [facility], and onto the recovery room in satisfactory condition. ESTIMATED BLOOD LOSS: 100 mL. INTRAVENOUS FLUIDS: 1.3 liters of crystalloid. COMPLICATIONS: There were no known intraoperative complications. Dictated By: Manish Styles MD WT: OP:Y.HIM/CARMEN/NTS PATIENT NAME: EREN HODGE Conf#: [id number]/DID#: [id number] Authenticated and Edited by Manish Styles MD On 05/26/22 7:24:04 AM at 0727 PATIENT NAME: EREN HODGE 17:00:00 [facility] ([facility] Brief Op Note REPORT#:[id number] REPORT STATUS: Signed DATE:05/25/22 TIME: 1700 PATIENT: EREN HODGE UNIT #: [id number] ROOM/BED: : 59 AGE: 61 SEX: M ATTEND: Manish Styles MD ADM AUTHOR: Manish Styles MD * ALL edits or amendments must be made on the electronic/computer document * Op/Inv Proc Note - Brief Pre-procedure diagnosis: IRREPARABLE ROTATOR CUFF TEAR, RIGHT Post-procedure diagnosis: same as pre procedure dx Procedures performed: REVERSE RIGHT TOTAL SHOULDER ARTHROPLASTY Primary Surgeon: MANISH STYLES MD Emergency Vehicle Technician(s): INGRIS JOSE MD Anesthesia: combined general/regional Findings: TEAR Complications: none Estimated blood loss in ml's: 100ML Specimens removed/altered: HUMERAL HEAD, DISCARDED Drain(s): HVAC X 1 Fluids: 1.3L CRYSTALLOID at 1702 RPT #:[id number] END OF REPORT [id number] 07:39:[id number] [facility] [place] [address] PATIENT NAME: EREN HODGE ADMIT DATE: 05/25/22 ACCOUNT NO: [id number] ROOM NO: Y.O17 AGE: 61 REPORT TYPE: HISTORY AND PHYSICAL SEX: M ADMITTING PHYSICIAN:Manish Styles MD ATTENDING PHYSICIAN:Manish Styles MD ADMISSION DATE: 05/25/2022 CHIEF COMPLAINT: Right shoulder pain, functional loss. HISTORY OF PRESENT ILLNESS: The patient is a 61-year-old male, who sustained a work-related injury, noted to have irreparable rotator cuff tear, failed exhaustive conservative measures. He was counseled as to the risks and benefits of the recommended treatment of operative intervention. He presents for surgical evaluation. PAST MEDICAL HISTORY: Diabetes. PAST SURGICAL HISTORY: Right acromial nonunion excision, carpal tunnel release, hernia surgery, knee arthroscopy. SOCIAL HISTORY: No daily tobacco. Social alcohol. FAMILY HISTORY: Noncontributory. ALLERGIES: NONE. MEDICATIONS: Baclofen, Flexeril, metformin, tramadol, Zofran. PHYSICAL EXAMINATION: GENERAL: Pleasant male, in no acute distress. He is alert and oriented x3. NEUROLOGIC: Nonfocal. HEAD AND NECK: No mass or deformity. HEART: Spontaneous pulse. LUNGS: Spontaneous respiration. ABDOMEN: Soft. EXTREMITIES: Right shoulder does have scapular winging, supraspinatus and infraspinatus atrophy, 75 degrees of forward elevation, weakness with isolation of supra and infraspinatus. DIAGNOSTIC DATA: Radiographs demonstrate adequate bone stock of the glenoid and humerus. MRI demonstrates irreparable rotator cuff tear. CT arthrogram demonstrates irreparable rotator cuff tear. ASSESSMENT AND PLAN: Discussed with the patient his condition, treatment options available for him. At this point, he wished to proceed with surgical reverse arthroplasty reconstruction. He was counseled on the risks and benefits of this. He voiced understanding and wished to proceed. Surgical consent will PATIENT NAME: EREN HODGE be obtained. Surgical site being marked. Dictated By: Manish Styles MD WT: HP:HEIKE/CARMEN/EMILEE Conf#: [id number]/DID#: [id number] Authenticated by Manish Styles MD On 05/26/2022 07:23:48 AM at 0723 PATIENT NAME: EREN HODGE [id number]:[id number] [place] [address] PATIENT NAME: EREN HODGE ADMIT DATE: ACCOUNT NO: [id number] ROOM NO: AGE: 61 REPORT TYPE: ELECTROCARDIOGRAM SEX: M ADMITTING PHYSICIAN: ATTENDING PHYSICIAN:Manish Styles MD Order: [id number] Test Reason : SMOKING Test Date/Time Stamp: TueMay 17 2022 09:26:29 Blood Pressure : / mmHG Vent. Rate : 080 BPM Atrial Rate : 080 BPM P-R Int : 140 ms QRS Dur : 088 ms QT Int : 382 ms P-R-T Axes : 067 -01 052 degrees QTc Int : 440 ms Normal sinus rhythm Normal ECG When compared with ECG of 10-FEB-2021 08:42, No significant change was found Confirmed by BOLA JONES MD ([id number]) on 05/18/2022 5:13:20 PM Referred By: Manish Styles Confirmed by:BOLA JONES MD PATIENT NAME: EREN HODGE [id number] [place] [address] PATIENT NAME: EREN HODGE ADMIT DATE: 02/17/21 ACCOUNT NO: [id number] ROOM NO: AGE: 60 REPORT TYPE: OPERATIVE REPORT SEX: M ADMITTING PHYSICIAN: ATTENDING PHYSICIAN:Manish Styels MD OPERATION DATE: 02/17/2021 PREOPERATIVE DIAGNOSIS: Right shoulder acromial nonunion. POSTOPERATIVE DIAGNOSIS: Right shoulder acromial nonunion. PROCEDURE: Ostectomy of the scapular acromion, partial. SURGEON: Manish Styles MD MEDICAL STAFFING COORDINATOR: MD Dr. Isaac Mcpherson, property management assistant, was medically necessary for the procedure. His assistance allowed me to operate with two hands freely. He assisted with arm positioning, suture management. For this, he is medically necessary. ANESTHESIA: General with a block. DESCRIPTION OF FINDINGS AND INDICATIONS FOR PROCEDURE: The patient is a 60-year-old male, who sustained a work-related injury to his right shoulder. Clinical and radiographic evaluation is consistent with an acromial nonunion. He has failed exhaustive conservative measures. He was counseled as to the risks and benefits of the recommended treatment of operative intervention including but not limited to bleeding, infection, neurovascular injury, persistent pain, need for additional procedure, loss of function, recurrence of his condition by return to activity, persistent posttraumatic rotator cuff arthropathy, need for additional intervention as well as anesthetic risks including but not limited to change in blood pressure, deep venous thrombosis, pulmonary embolism, heart attack, stroke, or . The patient voiced understanding and wished to proceed. PROCEDURE IN DETAIL: After obtaining informed consent, the right shoulder was marked by me in the preoperative holding area. The patient underwent a preoperative block. The patient was brought to the operating suite where satisfactory anesthesia was established by the anesthesia service. The patient was placed in the beach-chair position on a Schlein bony prominences were padded. Right upper extremity was prepped and draped in sterile fashion and sterile drapes were applied. Time-out was called prior to commencing of procedure, verifying the correct site and correct side. The patient received preoperative antibiotics within 1 hour of commencing of procedure. With the patient having on a prior open rotator cuff repair, prior skin incision was utilized. Dissection carried down through skin and subcutaneous tissue. Andreina PATIENT NAME: EREN HODGE cautery was used to maintain hemostasis. Full-thickness flaps were elevated. Acromion was visualized as well as the nonunion site. This was then skeletonized subperiosteally in its entirety. Once this had been removed, there was no residual nonunion present. The humeral head was easily visualized well, had end-stage degenerative change, posttraumatic being present. Wound was then copiously irrigated. Wound closure then commenced in layered fashion. Deep closure performed using 0 Vicryl, superficial closed using 2-0 Vicryl, and skin was closed with running 3-0 Monocryl. Sterile dressings of Steri-Strips and 4 x 4's applied with ABD and tape. He was placed into a simple sling, tolerated the procedure well, was extubated, transferred to [facility], onto the recovery room in satisfactory condition. ESTIMATED BLOOD LOSS: Minimal. INTRAVENOUS FLUIDS: Maintenance. COMPLICATIONS: There were no known intraoperative complications. PROGNOSIS: Guarded given the nature of his condition. Dictated By: Manish Styles MD WT: OP:HEIKE/CARMEN/EMILEE Conf#: [id number]/DID#: [id number] Authenticated by Manish Styles MD On 02/18/2021 07:41:09 AM at 0741 PATIENT NAME: EREN HODGE [id number] [place] [address] PATIENT NAME: EREN HODGE ADMIT DATE: ACCOUNT NO: [id number] ROOM NO: AGE: 60 REPORT TYPE: ELECTROCARDIOGRAM SEX: M ADMITTING PHYSICIAN: ATTENDING PHYSICIAN:Manish Styles MD Order: [id number] Test Reason : PRE OP CLEARANCE HTN Test Date/Time Stamp: TueFeb 10 2021 08:42:13 Blood Pressure : / mmHG Vent. Rate : 075 BPM Atrial Rate : 075 BPM P-R Int : 136 ms QRS Dur : 086 ms QT Int : 394 ms P-R-T Axes : 063 001 054 degrees QTc Int : 439 ms Normal sinus rhythm Low voltage QRS Borderline ECG No previous ECGs available Confirmed by BOLA JONES MD ([id number]) on 02/13/2021 8:03:47 PM Referred By: Manish Styles Confirmed by:BOLA JONES MD at 2004 PATIENT NAME: EREN HODGE
[2025-01-26] MEDS ORDERED: LIDOCAINE 1% 20 ML MDV ONE (02:02)
[2025-01-26 02:23] LABS: Absolute Basophils 0.1 K/uL (0-0.5); Absolute Eosinophils 0.6 K/uL (0-0.5); Absolute Lymphocytes (CBC) 1.7 K/uL (0.7-4.9); Absolute Monocytes 1.2 K/uL (0.1-1.3); Absolute Neutrophil 5.5 K/uL (1.8-8.0); Eosinophils % 7.1 % (0-4.4); Hematocrit 31.1 % (39.6-49.0); Hemoglobin 10.8 g/dL (13.6-17.9); Lymphocytes % 18.2 % (15.3-44.8); MCH 28.6 pg (27.0-35.0); MCHC 34.7 g/dL (32.0-36.0); MCV 82.6 fL (80-100); MPV 7.6 fL (7.6-11.3); Monocytes % 13.1 % (3.3-12.3); Neutrophils % 60.6 % (41.7-73.7); Platelets 282 thou/uL (152-406); RBC Red Blood Cell Count 3.76 M/uL (4.33-5.43); Red Cell Distribution Width 17.7 % (12.1-15.2)
[2025-01-26 02:33] LABS: PTT, Activated Partial Thromb 26.3 SECONDS (24.3-36.9); Protime INR 0.96
[2025-01-26 02:48] LABS: Albumin 3.3 g/dL (3.4-5.0); Albumin/Globulin Ratio 1.1 (1.1-1.8); Anion Gap 9.5 mEq/L (5.0-15.0); Bilirubin Total 0.8 mg/dL (0.2-1.0); C-Reactive Protein 49.3 mg/L (<3.00); Potassium 3.5 mEq/L (3.5-5.1); Protein, Total 6.3 g/dL (6.4-8.2)
[2025-01-26 03:37] LABS: Body Fluid WBC 11399 /mm^3
[2025-01-26 04:04] LABS: Appearance VERY TURBID (CLEAR); Body Fluid Source SYNOVIAL; Color of Supernate ND (Not Xantho); Color of fluid Orange (COLORLESS); Fluid Total Cells Count 100; Tube # SINGLE
[2025-01-26 04:07] LABS: Body Fluid Lymphocytes 8 %
--- NOTE | 2025-01-26 04:39 | RAD REPORT ---
EXAM: XR Right Knee, 3 Views CLINICAL HISTORY: The patient is 64 years old and is Male; PAIN TECHNIQUE: Three views of the right knee. COMPARISON: No relevant prior studies available. FINDINGS: Bones/joints: Tricompartmental narrowing. Suprapatellar effusion. No acute fracture. No dislocation. Soft tissues: Unremarkable. IMPRESSION: 1. Tricompartmental narrowing. 2. Suprapatellar effusion. Electronically signed by: Bridger Casanova MD 01/26/2025 04:13 AM [facility] 8 Due to temporary technical issues with the PACS/RIGID reporting system, reports are being andrea d by the in-house radiologist without review as a courtesy to ensure prompt reporting the interpreting radiologist is fully responsible for the content of the report. Transcribed Date/Time: 01/26/2025 4:38 AM
--- NOTE | 2025-01-26 04:40 | ER ---
Nurse's Notes [facility] Name: Carlos Parada Age: 64 yrs Sex: Male : 1960 Arrival Date: 01/26/2025 Time: 00:42 Bed 2 Private MD: Diagnosis: Other specified arthritis, right knee-Inflammatory arthritis Presentation: 01/26 01:14 Chief complaint: Patient states: RIGHT KNEE PAIN....1 WEEK, DENIES INJURY....HX. br2 Coronavirus screen: Client denies travel out of the [place] in the last 14 days. Ebola Screen: Patient denies exposure to infectious person. Initial Sepsis Screen: Does the patient meet any 2 criteria? No. Patient's initial sepsis screen is negative. Does the patient have a suspected source of infection? No. Patient's initial sepsis screen is negative. Risk Assessment: Do you want to hurt yourself or someone else? Patient reports no desire to harm self or others. Onset of symptoms was January 19, 2025. 01:14 Method Of Arrival: Ambulatory br2 01:14 Acuity: STEVE 4 br2 Triage Assessment: 01:17 General: Appears uncomfortable, Behavior is calm, cooperative. Pain: Complains of pain br2 in lateral aspect of right knee. Musculoskeletal: Capillary refill < 3 seconds, Range of motion: intact in all extremities, Reports pain in lateral aspect of right knee. Historical: - Allergies: 01:17 No Known Allergies; br2 - PSHx: 01:17 R shoulder replacment; Repair of inguinal hernia; br2 - Immunization history:: Adult Immunizations up to date. - Infectious Disease History:: Denies. - Social history:: Smoking status: Patient reports the use of cigarette tobacco products, denies chronic smoking, but will smoke occasionally, Patient uses alcohol, on a daily basis. Patient/guardian denies using street drugs. - Family history:: not pertinent. - Hospitalizations: : No recent hospitalization is reported. Screenin:22 [facility] ED Fall Risk Assessment (Adult) History of falling in the last 3 months, kd3 including since admission No falls in past 3 months (0 pts) Confusion or Disorientation No (0 pts) Intoxicated or Sedated No (0 pts) Impaired Gait No (0 pts) Mobility Assist Device Used No (0 pt) Altered Elimination No (0 pt) Score/Fall Risk Level 0 - 2 = Low Risk Oriented to surroundings. Abuse screen: Denies threats or abuse. Denies injuries from another. Nutritional screening: No deficits noted. Tuberculosis screening: No symptoms or risk factors identified. Assessment: 02:23 General: consent for knee aspiration is on the chart. . kd3 06:04 General: Appears in no apparent distress. Behavior is calm, cooperative. Neuro: Level kd3 of Consciousness is awake, alert, obeys commands, Oriented to person, place, time, situation. Vital Signs: 01:14 BP 126 / 79; Pulse 99; Resp 18; Temp 98.4; Pulse Ox 98% ; Weight 63.5 kg; Height 5 ft. br2 4 in. ; Pain 8/10; 02:22 BP 129 / 87; Pulse 88; Resp 19; Pulse Ox 98% on R/A; kd3 03:39 BP 124 / 73; Pulse 77; Resp 17; Pulse Ox 98% on R/A; kd3 01:14 Body Mass Index 24.03 (63.50 kg, 162.56 cm) br2 01:14 Pain Scale: Adult br2 ED Course: 00:46 Patient arrived in ED. im 00:50 Rehan Ford MD is Attending Physician. rn 01:17 Triage completed. br2 01:17 Arm band placed on right wrist. br2 01:33 X-ray completed. Portable x-ray completed in exam room. Patient tolerated procedure mh1 well. 01:38 XRAY Knee RIGHT 3 view In Process Unspecified. EDMS 01:45 Chen Prasad, RN is Primary Nurse. kd3 02:22 Blood Culture Adult (2) Sent. kd3 02:22 CBC with Diff Sent. kd3 02:22 CMP Sent. kd3 02:22 Lactate w/ 2H reflex if indic. Sent. kd3 02:22 Protime (+inr) Sent. kd3 02:22 Ptt, Activated Sent. kd3 02:22 CRP Sent. kd3 02:23 Patient has correct armband on for positive identification. Provided Education on: kd3 procedure. 03:17 Fluid Crystals Sent. kd3 03:17 Fluid Cell Count,Body Sent. kd3 03:17 Body Fluid Culture Sent. kd3 05:42 initiated transfer with [facility], spoke with FLAKITO FRAGA. vk 05:50 Doc to Doc conference with Ortho. juan 06:05 No provider procedures requiring assistance completed. IV discontinued, intact, kd3 bleeding controlled, No redness/swelling at site. Pressure dressing applied. Administered Medications: 03:17 Drug: Lidocaine Infiltration (1 %) 1 vials 20 ml Infiltration once; to bedside Volume: kd3 20 ml; Route: Infiltration; Medication: 02:23 VIS not applicable for this client. kd3 Outcome: 04:39 ER care complete, transfer ordered by . rn 05:54 Discharge ordered by . rn 06:05 Discharged to home ambulatory, kd3 06:05 Condition: stable 06:05 Discharge instructions given to patient, Instructed on discharge instructions, follow up and referral plans. Demonstrated understanding of instructions, follow-up care, medications, Prescriptions given X 2, 06:06 Patient left the ED. kd3 Signatures: Dispatcher [employer] EDMS Layla Barrios 1 Rehan Ford MD MD rn Doucette, Kyli, RN RN kd3 Alicia Dial Vivian vk Riddle, Belinda, RN RN br2 Corrections: (The following items were deleted from the chart) 01:20 01:14 Pulse 99bpm; Resp 18bpm; Pulse Ox 98%; Temp 98.4F; 63.5 kg; Height 5 ft. 4 in.; br2 BMI: 24.0; Pain 8/10, Adult; br2
--- NOTE | 2025-01-26 04:40 | EDPHYS ---
Physician Documentation [facility] Name: Carlos Parada Age: 64 yrs Sex: Male : 1960 Arrival Date: 01/26/2025 Time: 00:42 Bed 2 Private MD: ED Physician Rehan Ford HPI: 01/26 01:32 This 64 yrs old Male presents to ER via Ambulatory with complaints of Leg Pain - right. rn 01:32 The patient presents with pain, swelling. The complaints affect the right knee. rn 01:33 Onset: The symptoms/episode began/occurred 1 week(s) ago. Modifying factors: The rn symptoms are alleviated by remaining still, the symptoms are aggravated by movement. Severity of symptoms: At their worst the symptoms were mild, in the emergency department the symptoms are unchanged. The patient has experienced similar episodes in the past. Patient reports 1 week of right knee pain and swelling. Is concerned because 3 months ago was diagnosed with septic arthritis of that knee and required surgery. Denies any fever or chills. Denies injury. Reports appears to bruised. His daughter is a nurse and she is concerned for hematoma. Patient states that this does not feel the same as when he had septic arthritis.. Historical: - Allergies: :17 No Known Allergies; br2 - PSHx: :17 R shoulder replacment; Repair of inguinal hernia; br2 - Immunization history:: Adult Immunizations up to date. - Infectious Disease History:: Denies. - Social history:: Smoking status: Patient reports the use of cigarette tobacco products, denies chronic smoking, but will smoke occasionally, Patient uses alcohol, on a daily basis. Patient/guardian denies using street drugs. - Family history:: not pertinent. - Hospitalizations: : No recent hospitalization is reported. ROS: 01:33 Constitutional: Negative for fever, chills, and weight loss, Cardiovascular: Negative rn for chest pain, palpitations, and edema, Respiratory: Negative for shortness of breath, cough, wheezing, and pleuritic chest pain, Abdomen/GI: Negative for abdominal pain, nausea, vomiting, diarrhea, and constipation, Back: Negative for injury and pain, MS/Extremity: Positive for right knee pain and swelling Skin: Positive for bruising and ecchymosis of the right knee Exam: 01:33 Constitutional: This is a well developed, well nourished patient who is awake, alert, rn and in no acute distress. Ambulatory to triage with brace Cardiovascular: Regular rate and rhythm. No pulse deficits. Respiratory: Speaking full sentences, unlabored. No increased work of breathing, no retractions or nasal flaring. MS/ Extremity: Pulses equal, no cyanosis. Neurovascular intact. Right knee with effusion, worse on medial side, with ecchymosis. No open wounds. No warmth. 05:13 ECG was reviewed by the Attending Physician. rn Vital Signs: 01:14 BP 126 / 79; Pulse 99; Resp 18; Temp 98.4; Pulse Ox 98% ; Weight 63.5 kg; Height 5 ft. br2 4 in. ; Pain 8/10; 02:22 BP 129 / 87; Pulse 88; Resp 19; Pulse Ox 98% on R/A; kd3 03:39 BP 124 / 73; Pulse 77; Resp 17; Pulse Ox 98% on R/A; kd3 01:14 Body Mass Index 24.03 (63.50 kg, 162.56 cm) br2 01:14 Pain Scale: Adult br2 Procedures: 02:48 Joint Treatment: Aspiration of right knee using 25g needle. Removed 20 ml's of yellow rn fluid, Specimen sent to lab. Dressed with band aid, Patient tolerated well. MDM: 00:50 Medical Screening Exam initiated rn 04:37 Differential diagnosis: Inflammatory arthritis, reactive arthritis, septic arthritis, rn hemarthrosis. Data reviewed: vital signs, nurses notes, lab test result(s), radiologic studies, plain films, and as a result, I will admit patient. Consideration of Admission/Observation Patient was admitted/placed on observation. Escalation of care including admission/observation considered. Counseling: I had a detailed discussion with the patient and/or guardian regarding the historical points, exam findings, and any diagnostic results supporting the discharge/admit diagnosis, lab results, radiology results, the need for further work-up and treatment in the hospital, the need to transfer to another facility. ED course: Patient requested transfer to [facility] which she had surgery at [facility] just 3 months ago for septic arthritis. WBC and fluid approximately 11,000 with 91% neutrophils. Last time when had septic arthritis his white blood cell count was in the millions. Will attempt transfer for further evaluation through [facility] per patient's request.. 05:52 ED course: Consulted with Dr. Chavarria, patient's orthopedist, went over results from rn knee aspiration, he states this is not septic arthritis, instead his inflammatory arthritis. Does not believe patient needs to be transferred at this time and states patient can be discharged with follow-up. Spoke with patient, patient okay with this plan and will follow-up as needed. Return precautions given and understood.. 01/26 01:00 Order name: Blood Culture Adult (2) rn 01/26 01:00 Order name: CBC with Diff; Complete Time: 03:28 rn 01/26 01:00 Order name: CMP; Complete Time: 03:28 rn 01/26 01:00 Order name: Lactate w/ 2H reflex if indic.; Complete Time: 03:28 rn 01/26 01:00 Order name: Protime (+inr); Complete Time: 03:28 rn 01/26 01:00 Order name: Ptt, Activated; Complete Time: 03:28 rn 01/26 01:00 Order name: CRP; Complete Time: 03:28 rn 01/26 02:47 Order name: Body Fluid Culture rn 01/26 02:47 Order name: Fluid Cell Count,Body; Complete Time: 04:09 rn 01/26 02:47 Order name: Fluid Crystals; Complete Time: 04:09 rn 01/26 01:00 Order name: XRAY Knee RIGHT 3 view rn 01/26 01:00 Order name: Accucheck; Complete Time: 03:18 rn 08 01:00 Order name: Cardiac monitoring; Complete Time: 02:19 rn 08 01:00 Order name: EKG - Nurse/Tech; Complete Time: 02:19 rn 01/26 01:00 Order name: IV Saline Lock - Large Bore; Complete Time: 02:20 rn 08 01:00 Order name: Labs collected and sent; Complete Time: 02:20 rn 08 01:00 Order name: O2 Per Protocol; Complete Time: 02:20 rn 08 01:00 Order name: O2 Sat Monitoring; Complete Time: 02:20 rn 08 01:00 Order name: Vital Signs; Complete Time: 02:20 rn EC:13 Rate is 86 beats/min. Rhythm is regular. QRS [place] is Normal. NE interval is normal. QRS rn interval is normal. QT interval is normal. No Q waves. T waves are Normal. No ST changes noted. Clinical impression: NSR w/ Non-specific ST/T Changes. Interpreted by me. Reviewed by me. Administered Medications: 03:17 Drug: Lidocaine Infiltration (1 %) 1 vials 20 ml Infiltration once; to bedside Volume: kd3 20 ml; Route: Infiltration; Disposition Summary: 01/26/25 05:54 Discharge Ordered Notes: Location: Home rn Problem: new(01/26/25 05:54) rn Symptoms: have improved(01/26/25 05:54) rn Condition: Stable(01/26/25 05:54) rn Diagnosis - Other specified arthritis, right knee - Inflammatory arthritis(01/26/25 05:54) rn Followup: rn - With: Private Physician - When: As needed - Reason: Recheck today's complaints, Re-evaluation by your physician Discharge Instructions: - Discharge Summary Sheet rn - Arthritis rn - Knee Arthrocentesis rn Forms: - Medication Reconciliation Form rn - Antibiotic broomcorn scraper - Prescription Opioid Use rn - Patient Portal Instructions rn - Leadership Thank You Letter rn Prescriptions: - Tramadol 50 mg Oral Tablet - take 1 tablet ORAL route every 8 hours as needed; 12 tablet; Refills: 0, rn Product Selection Permitted - Bactrim DS 800-160 mg Oral Tablet - take 1 tablet ORAL route every 12 hours for 10 days; 20 tablet; Refills: 0, rn Product Selection Permitted Signatures: Dispatcher [employer] EDMS Rehan Ford MD MD rn Doucette, Kyli RN RN kd3 Shreya Ascencio RN RN br2 Corrections: (The following items were deleted from the chart) 01:01 01:01 BLOOD CULTURE*+BA.LAB.BRZ ordered. EDMS EDMS 01:01 01:01 CBC+H.LAB.BRZ ordered. EDMS EDMS 01:01 01:01 COMPREHENSIVE METABOLIC PANEL+C.LAB.BRZ ordered. EDMS EDMS 01:01 01:01 LACTATE+C.LAB.BRZ ordered. EDMS EDMS 01:01 01:01 PROTIME (+INR)+COAG.LAB.BRZ ordered. EDMS EDMS 01:01 01:01 PTT, ACTIVATED+COAG.LAB.BRZ ordered. EDMS EDMS 01:01 01:01 C-REACTIVE PROTEIN+C.LAB.BRZ ordered. EDMS EDMS 05:54 04:39 rn rn 05:54 04:39 [facility] rn rn : 04:39 Higher level of care rn rn : 04:39 Stable rn rn :54 04:39 new rn rn : 04:39 have improved rn rn :54 04:39 Other specified arthritis, right knee - inflammatory vs infectious rn rn
[2025-01-26 06:10] VITALS: TEMP 98.4; O2SAT 98
[2025-01-26 06:12] VITALS: BP 124/73
--- NOTE | 2025-01-29 11:12 | EKG ---
Test Date: 2025-01-26 Test Time: 02:16:15 Platform Material Handling Supervisor: JAYDEN MEASUREMENT RESULTS: Intervals: Rate: 86 HI: 138 QRSD: 86 QT: 388 QTc: 464 [place]: P: 56 HI: 138 QRS: 30 T: 52 INTERPRETIVE STATEMENTS: Normal sinus rhythm Low voltage QRS Borderline ECG Compared to ECG 03/29/2016 15:21:00 Low QRS voltage now present Electronically Signed On 01-29-25 11:03:17 CDT by Jordan Larsen
== END 2025-01-26 06:06 | disposition home or self-care (01) ==
LOC: ER 00:42
DX: M13.861 Other specified arthritis, right knee (principal); F17.210 Nicotine dependence, cigarettes, uncomplicated
CPT/HCPCS: 93005; 87040 ×2; 87070; 85025; 36415; 89050; 85610; 83605; 85730; 80053; 89060; 86140; 73562; 99284; 20610; J2003